=== PATIENT | male | born 1980 | race Two or more races ===

== ENCOUNTER 2019-12-02 20:09 | Emergency (ER) | payer OTHER ==
[~2019-12-02] VITALS: Ht 175.3 cm; Wt 53.5 kg
--- NOTE | 2019-12-02 20:40 | NUR ---
PT BIBSELF C/O SI TO JUMP IN FRONT OF A BUS. -HI. PT STATED "I WENT TO [facility] AND THEY STATED TO COME TO [facility] TO BE CLEARED. PT PLACED IN GOWN, ON MONITOR, AND PULSE OX. VSS. DENIES PAIN. RR EVEN AND UNLABORED, NO SKIN ISSUES NOTED. AWAITING MD FOR EVAL AND ORDERS.
--- NOTE | 2019-12-02 20:49 | NUR ---
PT PROVIDED URINE SAMPLE.
--- NOTE | 2019-12-02 20:50 | NUR ---
ELECTRONIC GAMING DEVICE SUPERVISOR AT BEDSIDE FOR LAB DRAW.
--- NOTE | 2019-12-02 20:51 | NUR ---
SECURITY AT BEDSIDE FOR WANDING.
[2019-12-02 21:01] LABS: BASOPHILS # (AUTO) 0.1 /CMM (0.0-0.2); EOSINOPHILS % (AUTO) 2.8 % (0.0-6.0); HEMATOCRIT 29 % (39-51); HEMOGLOBIN 8.8 g/dL (13.5-17.5); LYMPHOCYTES # (AUTO) 2.1 /CMM (0.8-4.8); LYMPHOCYTES % (AUTO) 25.2 % (20.0-44.0); MEAN CORPUSCULAR HGB CONC 30 g/dl (31.0-36.0); MEAN CORPUSCULAR VOLUME 69 fL (80-96); MONOCYTES # (AUTO) 0.6 /CMM (0.1-1.30); MONOCYTES % (AUTO) 7.3 % (2.0-12.0); NEUTROPHILS # (AUTO) 5.4 /CMM (1.8-8.9); NEUTROPHILS % (AUTO) 63.7 % (43.0-81.0); PLATELET COUNT (AUTO) 579 /CMM (150-450); RED BLOOD CELL COUNT(AUTO) 4.19 MIL/uL (4.5-6.0); WHITE BLOOD COUNT (AUTO) 8.5 K/uL (4.3-11.0)
[2019-12-02 21:09] LABS: CALCIUM, SERUM 8.5 mg/dL (8.5-10.1); CARBON DIOXIDE 27 mmol/L (21-32); CHLORIDE 104 mmol/L (98-107); CREATININE 0.8 mg/dL (0.6-1.3); GLUCOSE 83 mg/dL (74-106); POTASSIUM 3.7 mmol/L (3.5-5.1); SODIUM SERUM 137 mmol/L (136-145); UREA NITROGEN, BLOOD 23 mg/dL (7-18)
[2019-12-02 21:11] LABS: APPEARANCE,URINE Clear (CLEAR); BILIRUBIN,URINE Negative (NEGATIVE); BLOOD, URINE Negative Ery/uL (NEGATIVE); COLOR,URINE Yellow (YELLOW); KETONES,URINE Negative (NEGATIVE); LEUKOCYTE ESTERASE ,URINE Negative (NEGATIVE); NITRITE, URINE Negative (NEGATIVE); PROTEIN,URINE Negative (NEGATIVE); UGLUCOSE Negative (NEGATIVE); UROBILINOGEN,URINE 0.2 EU/dL (0.2)
[2019-12-02 21:15] LABS: ALANINE AMINOTRANSFERASE 30 U/L (12-78); ALBUMIN 3.5 g/dL (3.4-5.0); ALCOHOL, BLOOD < 3 mg/dL (0-0); ALKALINE PHOSPHATASE 69 U/L (46-116); ASPARTATE AMINOTRANSFERASE 20 U/L (15-37); BILIRUBIN,DIRECT 0.1 mg/dL (0.0-0.2); BILIRUBIN,TOTAL 0.2 mg/dL (0.2-1.0); TOTAL PROTEIN, SERUM 7.2 g/dL (6.4-8.2)
[2019-12-02 21:16] LABS: ACETAMINOPHEN 0 ug/ml (10-30); SALICYLATE 0.8 mg/dL (2.8-20.0)
--- NOTE | 2019-12-02 21:55 | NUR ---
CLINICAL INFORMATION FAXED TO [facility]
--- NOTE | 2019-12-02 21:56 | NUR ---
Patient is resting comfortably in bed. Easily aroused. VSS.
--- NOTE | 2019-12-02 22:25 | NUR ---
PATIENT IS AWAKE. PATIENT APPEARS CALM. FLAT AFFECT. DOES NOT APPEAR TO BE IN ANY DISTRESS. CONNECTED TO THE MONITOR. BREATHING EVENLY AND UNLABORED ON ROOM AIR. SITTER AT BEDSIDE.
--- NOTE | 2019-12-03 00:53 | NUR ---
PT AMBULATED TO RESTROOM. VSS. SITTER AT BEDSIDE.
--- NOTE | 2019-12-03 04:47 | NUR ---
PT RESTING COMFORTABLY IN BED. VITAL SIGNS STABLE. NO ACUTE DISTRESS NOTED AT THIS TIME. SITTER STILL AT BEDSIDE, WILL CONTINUE TO MONITOR
--- NOTE | 2019-12-03 05:27 | NUR ---
PT SLEEP. VSS. SITTER AT BEDSIDE.
--- NOTE | 2019-12-03 06:13 | NUR ---
PT AWAKE, IN BED.
--- NOTE | 2019-12-03 06:53 | NUR ---
SPOKE WITH ANGUS FROM [facility], UNABLE TO ACCEPT PT DUE TO RECENT DISCHARGE FROM [facility]
--- NOTE | 2019-12-03 07:05 | NUR ---
assume pt care, resting in bed. verbally responsive. stable vitals. continue to be suicidal up to now. cooperative to staff. sitter at bedside. provided w/ breakfast tray. will continue to monitor.
--- NOTE | 2019-12-03 08:42 | NUR ---
DISEASE MANAGEMENT NURSE contacted Maurilio at [facility] to f/u regarding bed availability. Per Maurilio, they will have discharges at noon and will be able to accept pt after 12PM. DISEASE MANAGEMENT NURSE updated ED CRN Gener with aforementioned information.
--- NOTE | 2019-12-03 12:30 | NUR ---
PT ACCEPTED TO [facility], ACCEPTING MD IS DR. ZAYAS NUMBER FOR REPORT IS [phone]
--- NOTE | 2019-12-03 12:55 | NUR ---
CALLED [facility]. [facility] ETA 45 MINUTES. RESERVATION NUMBER [phone]
[2019-12-03 13:26] VITALS: BP 126/74
--- NOTE | 2019-12-03 13:28 | NUR ---
pt transfered to [facility]. pt transported in stable condition.
== END 2019-12-03 13:40 ==
LOC: ER 20:10
DX: R45.851 Suicidal ideations (principal); D53.9 Nutritional anemia, unspecified; F15.10 Other stimulant abuse, uncomplicated; F25.9 Schizoaffective disorder, unspecified; F32.9 Major depressive disorder, single episode, unspecified; Z86.19 Personal history of other infectious and parasitic diseases
CPT/HCPCS: 36415; 80048; 80076; 80305; 80307; 80329; 81001; 85025; 99285; G0480; 81000-TC

== ENCOUNTER 2020-01-05 00:11 | Emergency (ER) | payer OTHER ==
[~2020-01-05] VITALS: Ht 175.3 cm; Wt 54.4 kg
--- NOTE | 2020-01-05 00:15 | NUR ---
TO ER BED 14 AMBULATORY C/O SI WITH PLAN TO OD ON MEDS. DENIES HI. "I DONT WANT TO LIVE ANYMORE". PT CALM AND COOPERATIVE AT THIS TIME. PT AAOX4 BRISEYDA CUTE DISTRESS NOTED, RESP EVEN AND UNLABORED. PLACE PT ON HOSPITAL GOWN, ALL BELONGINGS REMOVED FROM ROOM. 1:1 SITTER AT BEDSIDE FOR TP SAFETY. WILL CONINUE TO MONITOR PT CLOSELY.
--- NOTE | 2020-01-05 00:30 | NUR ---
URINE COLLECTED. SENT TO LAB
[2020-01-05 00:46] LABS: BASOPHILS # (AUTO) 0.1 /CMM (0.0-0.2); BASOPHILS % (AUTO) 1.3 % (0.0-2.0); HEMATOCRIT 29 % (39-51); HEMOGLOBIN 8.9 g/dL (13.5-17.5); LYMPHOCYTES # (AUTO) 2.2 /CMM (0.8-4.8); MEAN CORPUSCULAR HGB CONC 31 g/dl (31.0-36.0); MEAN CORPUSCULAR VOLUME 71 fL (80-96); MONOCYTES # (AUTO) 0.8 /CMM (0.1-1.30); MONOCYTES % (AUTO) 11.7 % (2.0-12.0); NEUTROPHILS # (AUTO) 3.6 /CMM (1.8-8.9); PLATELET COUNT (AUTO) 602 /CMM (150-450)
[2020-01-05 00:49] LABS: APPEARANCE,URINE Clear (CLEAR); BILIRUBIN,URINE Negative (NEGATIVE); BLOOD, URINE Negative Ery/uL (NEGATIVE); COLOR,URINE Yellow (YELLOW); KETONES,URINE Negative (NEGATIVE); LEUKOCYTE ESTERASE ,URINE Negative (NEGATIVE); NITRITE, URINE Negative (NEGATIVE); PH,URINE 5.5 (5.0-8.0); PROTEIN,URINE 30 mg/dl (NEGATIVE); UGLUCOSE Negative (NEGATIVE); UROBILINOGEN,URINE 0.2 EU/dL (0.2)
[2020-01-05 00:55] LABS: BACTERIA,URINE None seen /HPF (None Seen); MUCUS,URINE Moderate /LPF (None Seen); RBC,URINE 0-2 /HPF (0-2); SQUAMOUS EPITHELIAL CELL,UR Rare /HPF (None Seen); WBC,URINE 0-2 /HPF (0-3)
[2020-01-05 01:06] LABS: CALCIUM, SERUM 9.3 mg/dL (8.5-10.1); CARBON DIOXIDE 30 mmol/L (21-32); CHLORIDE 101 mmol/L (98-107); CREATININE 0.7 mg/dL (0.6-1.3); GLUCOSE 91 mg/dL (74-106); POTASSIUM 3.7 mmol/L (3.5-5.1); SODIUM SERUM 136 mmol/L (136-145); UREA NITROGEN, BLOOD 32 mg/dL (7-18)
[2020-01-05 01:12] LABS: ALANINE AMINOTRANSFERASE 39 U/L (12-78); ALBUMIN 3.9 g/dL (3.4-5.0); ALKALINE PHOSPHATASE 71 U/L (46-116); ASPARTATE AMINOTRANSFERASE 29 U/L (15-37); BILIRUBIN,DIRECT 0.1 mg/dL (0.0-0.2); BILIRUBIN,TOTAL 0.3 mg/dL (0.2-1.0); TOTAL PROTEIN, SERUM 7.9 g/dL (6.4-8.2)
[2020-01-05 01:42] LABS: SALICYLATE 0.3 mg/dL (2.8-20.0)
[2020-01-05 01:43] LABS: ACETAMINOPHEN 0 ug/ml (10-30); ALCOHOL, BLOOD < 3 mg/dL (0-0)
--- NOTE | 2020-01-05 02:56 | NUR ---
Pt accepted to [facility] by Dr Boyle. Unit 2. # for report [phone]
--- NOTE | 2020-01-05 03:07 | NUR ---
[facility] called for transport. ETA 60-90 minutes.
--- NOTE | 2020-01-05 03:55 | NUR ---
Report given to [facility] Wagner for continuation of care
--- NOTE | 2020-01-05 05:42 | NUR ---
[facility] at bedside for transport.
[2020-01-05 05:43] VITALS: BP 125/79
== END 2020-01-05 05:44 | disposition home or self-care (01) ==
LOC: ER 00:11
DX: R45.851 Suicidal ideations (principal); F19.10 Other psychoactive substance abuse, uncomplicated; F20.9 Schizophrenia, unspecified; D64.9 Anemia, unspecified; F17.200 Nicotine dependence, unspecified, uncomplicated; Z88.8 Allergy status to other drugs, medicaments and biological substances; Z86.19 Personal history of other infectious and parasitic diseases
CPT/HCPCS: 36415; 80048; 80076; 80305; 80307; 80329; 81001; 85025; 99283; G0480; 81000-TC

== ENCOUNTER 2020-01-16 06:34 | Emergency (ER) | payer OTHER ==
[~2020-01-16] VITALS: Ht 175.3 cm; Wt 53.5 kg
[2020-01-16 07:07] LABS: BASOPHILS # (AUTO) 0.1 /CMM (0.0-0.2); BASOPHILS % (AUTO) 1.2 % (0.0-2.0); EOSINOPHILS % (AUTO) 1.9 % (0.0-6.0); HEMATOCRIT 30 % (39-51); LYMPHOCYTES # (AUTO) 1.4 /CMM (0.8-4.8); LYMPHOCYTES % (AUTO) 23.3 % (20.0-44.0); MEAN CORPUSCULAR HGB CONC 31 g/dl (31.0-36.0); MEAN CORPUSCULAR VOLUME 69 fL (80-96); MONOCYTES # (AUTO) 0.7 /CMM (0.1-1.30); NEUTROPHILS # (AUTO) 3.6 /CMM (1.8-8.9); NEUTROPHILS % (AUTO) 61.6 % (43.0-81.0); PLATELET COUNT (AUTO) 621 /CMM (150-450); WHITE BLOOD COUNT (AUTO) 5.9 K/uL (4.3-11.0)
--- NOTE | 2020-01-16 07:20 | NUR ---
assume patient care, resting in bed. here for suicidal ideation w/ plan to jump in front of a moving train. pt denies hi. pt is cooperative to staff. admits to using meth and marijuana. belongings to safe locker. urine and blood samples collected and sent. sitter at bedside. will continue to monitor.
[2020-01-16] MEDS ORDERED: QUETIAPINE FUMARATE 25 MG TABLET PO STA (07:21)
[2020-01-16 07:26] LABS: POTASSIUM 4.2 mmol/L (3.5-5.1)
[2020-01-16 07:27] LABS: CALCIUM, SERUM 8.8 mg/dL (8.5-10.1)
[2020-01-16 07:28] LABS: ALBUMIN 3.9 g/dL (3.4-5.0)
[2020-01-16 07:34] LABS: CREATININE 0.7 mg/dL (0.6-1.3)
[2020-01-16] MEDS ORDERED: QUETIAPINE FUMARATE 25 MG TABLET ONE (07:34)
[2020-01-16 07:35] LABS: BILIRUBIN,DIRECT 0.1 mg/dL (0.0-0.2); BILIRUBIN,TOTAL 0.4 mg/dL (0.2-1.0)
[2020-01-16 07:37] LABS: SALICYLATE 0.6 mg/dL (2.8-20.0)
--- NOTE | 2020-01-16 08:45 | NUR ---
Social service consult requested by for voluntary psychiatric hospitalization. Per MD Notes, pt is a 39-year-old male with a past medical history of hep C, chronic anemia, schizophrenia with persistent suicidal ideations, presenting to the emergency department today for worsening suicidal ideations with a plan to jump in front of a moving train. He reports auditory hallucinations telling him that he is worthless, and he indicates that he cannot take it anymore and he no longer wants to live. The patient reports that he is supposed to be on Seroquel, but he is noncompliant with this medication. He does not endorse any homicidal ideations. He does not want to hurt anyone but himself. He does not endorse any visual hallucinations. The patient does admit to chronic frequent methamphetamine and marijuana abuse. He last used methamphetamine 2 days ago. He indicates that it did not change his suicidality. JESSE contacted Maurilio at [facility] and initiated voluntary psychiatric hospitalization. Per Maurilio, they will hold a bed for the pt. JESSE faxed clinicals to [facility] intake dept. ED CRN Gener notified.
--- NOTE | 2020-01-16 10:05 | NUR ---
SW followed up with [facility] intake regarding update on pt. being accepted. Per Dariel at [facility] intake, pt is being referred to [facility] and clinicals are currently being reviewed by warehouse foreman at [facility]. [facility] intake to updated SW once pt is accepted.
--- NOTE | 2020-01-16 11:14 | NUR ---
SW received a call from Carisa at [facility] intake stating, pt has been accepted to [facility]. Room number 214/A. Call report to charge weigher Chris at .
--- NOTE | 2020-01-16 11:20 | NUR ---
report given to javier DANIELLE for nahid
--- NOTE | 2020-01-16 11:54 | NUR ---
awaiting call back from call the car for ambulance eta. confirmation #[id number]
--- NOTE | 2020-01-16 12:01 | NUR ---
AMBUL[facility] ETA 1330.
[2020-01-16 13:00] VITALS: BP 129/81
== END 2020-01-16 13:01 ==
LOC: ER 06:34
DX: R45.851 Suicidal ideations (principal); F32.9 Major depressive disorder, single episode, unspecified; F23 Brief psychotic disorder; F15.10 Other stimulant abuse, uncomplicated; F12.10 Cannabis abuse, uncomplicated; D64.9 Anemia, unspecified; Z86.19 Personal history of other infectious and parasitic diseases; Z88.8 Allergy status to other drugs, medicaments and biological substances
CPT/HCPCS: 36415; 80048; 80076; 80305; 80307; 80329; 85025; 99285; G0480

== ENCOUNTER 2020-02-13 15:27 | Inpatient (IN) | payer OTHER ==
[~2020-02-13] VITALS: Ht 175.3 cm; Wt 81.6 kg
--- NOTE | 2020-02-13 15:36 | NUR ---
DR VALLE AT BEDSIDE FOR EVAL.
--- NOTE | 2020-02-13 15:40 | NUR ---
Called poison control: Orders: respiratory supervisor Charcoal CMP EKG Q 2 hours x 3 Neuro check as needed OBS x 6 hours psych work up Automatic Nailing Machine Feeder 137 (Poison Control - [place])
--- NOTE | 2020-02-13 15:42 | NUR ---
LINE STARTED ON R AC G 18, BLOOD DRAWN FROM LINE AND SENT TO LAB
[2020-02-13] MEDS ORDERED: ACTIVATED CHARCOAL 25 GM/120 ML TUBE ONE (15:46)
[2020-02-13 15:55] LABS: APPEARANCE,URINE CLEAR (CLEAR); BASOPHILS # (AUTO) 0.1 /CMM (0.0-0.2); BASOPHILS % (AUTO) 1.5 % (0.0-2.0); BILIRUBIN,URINE NEGATIVE (NEGATIVE); BLOOD, URINE NEGATIVE Ery/uL (NEGATIVE); COLOR,URINE YELLOW (YELLOW); EOSINOPHILS % (AUTO) 2.8 % (0.0-6.0); HEMATOCRIT 35 % (39-51); HEMOGLOBIN 10.8 g/dL (13.5-17.5); KETONES,URINE NEGATIVE (NEGATIVE); LEUKOCYTE ESTERASE ,URINE NEGATIVE (NEGATIVE); LYMPHOCYTES # (AUTO) 2.2 /CMM (0.8-4.8); LYMPHOCYTES % (AUTO) 42.2 % (20.0-44.0); MEAN CORPUSCULAR HGB CONC 31 g/dl (31.0-36.0); MEAN CORPUSCULAR VOLUME 70 fL (80-96); MONOCYTES # (AUTO) 0.5 /CMM (0.1-1.30); MONOCYTES % (AUTO) 9.6 % (2.0-12.0); NEUTROPHILS # (AUTO) 2.3 /CMM (1.8-8.9); NEUTROPHILS % (AUTO) 43.9 % (43.0-81.0); NITRITE, URINE NEGATIVE (NEGATIVE); PLATELET COUNT (AUTO) 551 /CMM (150-450); PROTEIN,URINE NEGATIVE (NEGATIVE); RED BLOOD CELL COUNT(AUTO) 4.98 MIL/uL (4.5-6.0); UGLUCOSE NEGATIVE (NEGATIVE); UROBILINOGEN,URINE 0.2 EU/dL (0.2); WHITE BLOOD COUNT (AUTO) 5.3 K/uL (4.3-11.0)
[2020-02-13] MEDS ORDERED: IV NS 0.9% 1,000 ML BAG IV ONE (16:00)
[2020-02-13] MEDS ORDERED: BUPR75TA8 PO (16:00)
[2020-02-13] MEDS ORDERED: ACTIVATED CHARCOAL 25 GM/120 ML TUBE PO ONE (16:00)
[2020-02-13] MEDS ORDERED: ESCI10TA PO (16:00)
[2020-02-13] MEDS ORDERED: QUET50TA PO (16:00)
[2020-02-13 16:03] LABS: EOSINOPHILS % (MANUAL) 2 % (0-4); LYMPHOCYTES % (MANUAL) 38 % (16-48); MONOCYTES % (MANUAL) 10 % (0-11.0); NEUTROPHILS % (MANUAL) 50 (42-76)
[2020-02-13 16:05] LABS: CALCIUM, SERUM 8.5 mg/dL (8.5-10.1); CARBON DIOXIDE 27 mmol/L (21-32); CHLORIDE 102 mmol/L (98-107); CREATININE 0.9 mg/dL (0.6-1.3); GLUCOSE 83 mg/dL (74-106); POTASSIUM 4.1 mmol/L (3.5-5.1); SODIUM SERUM 135 mmol/L (136-145); UREA NITROGEN, BLOOD 29 mg/dL (7-18)
[2020-02-13 16:14] LABS: ALANINE AMINOTRANSFERASE 41 U/L (12-78); ALBUMIN 3.6 g/dL (3.4-5.0); ALCOHOL, BLOOD < 3 mg/dL (0-0); ALKALINE PHOSPHATASE 70 U/L (46-116); ASPARTATE AMINOTRANSFERASE 32 U/L (15-37); BILIRUBIN,DIRECT 0.1 mg/dL (0.0-0.2); BILIRUBIN,TOTAL 0.3 mg/dL (0.2-1.0); TOTAL PROTEIN, SERUM 7.4 g/dL (6.4-8.2)
[2020-02-13 16:16] LABS: SALICYLATE < 2.8 mg/dL (2.8-20.0)
--- NOTE | 2020-02-13 16:23 | NUR ---
PT SLEEPING, EASILY AROUSABLE VERBALLY RESPONSIVE AWAKE. WILL MONITOR CLOSELY.
[2020-02-13] MEDS: IV NS 0.9% 500 ML BAG IV ONE ×2 (17:15→17:30)
--- NOTE | 2020-02-13 17:15 | NUR ---
DR VALLE MADE AWARE OF CURRENT B/P VERBALL ORDER FOR 1L NS ORDERED AND CARRIED OUT
[2020-02-13] MEDS ORDERED: ACETAMINOPHEN 325 MG TABLET PO PRN (18:30)
[2020-02-13] MEDS ORDERED: MAG HYDROX/AL HYDROX/SIMETH 30 ML UDC PO PRN (18:30)
[2020-02-13] MEDS ORDERED: ONDANSETRON HCL/PF 4 MG/2 ML VIAL IVP PRN (18:30)
[2020-02-13] MEDS ORDERED: Z GUARD REMEDY 2 OZ OINT TP PRN (18:30)
[2020-02-13] MEDS ORDERED: MAGNESIUM HYDROXIDE 30 ML UDC PO PRN (18:30)
--- NOTE | 2020-02-13 20:33 | NUR ---
TOLD PT HE NEEDED AN EXTRA IV LINE. PT STATED "NO, GET AWAY FROM ME.
--- NOTE | 2020-02-13 20:45 | NUR ---
HAND TIER NOTES ADMITTED A 39 Y/O MALE A/OX4 ABLE TO MAKE NEEDS KNOWN ,WITH ADMITTING DX OF DRUG OVERDOSE .ADMISSION ROUTINE CARE RENDERED , V/S BP 107/62 HR 80 RR 12 TEMP 98.5 02 SAT 99% ON R/A O SOB NO DISTRESS NOTED .ALL NEEDS ATTENDED TOO CALL LIGHT WITHIN REACH .PT ON RIGHT AC g 18 INTACT AND PATENT ON IVF OG NS AT 75CC/HR INFUSING WELL , BODY CHECK NOT DONE AT THIS TIME D/T PTS REFUSAL , WILL CONTINUE TO MONITOR PTS.
--- NOTE | 2020-02-13 20:53 | NUR ---
PT STATED HE HAS BELONINGS IN THE E.D. I ASKED THE MORNING SHIFT IF THE PT CAME IN WITH ANY CLOTHES WHICH THEY STATED NO. EXCEPT WHATEVER THE PATIENT WAS WEARING WHICH IS BLUE JEANS AND GREEN SHOES. WHILE TRANSFERING PT, PT TOOK OFF BP CUFF AND THREW IT AT ME AND STATED "YOU HAVE MY SHIRTS." I ASKED THE PT HOW HIS SHIRTS LOOKED LIKE AND HE DID NOT KNOW. ICU AWARE.
--- NOTE | 2020-02-13 20:54 | NUR ---
PT TRANSFERED PER ACLS PROTOCOL
[2020-02-13] MEDS: IV NS 0.9% 1,000 ML IV PRN (21:21)
[2020-02-13 21:23] VITALS: BP 107/62
[2020-02-13 21:25] VITALS: BP 107/62
[2020-02-13 22:00] VITALS: BP 105/60
--- NOTE | 2020-02-13 22:00 | NUR ---
ARTIFICIAL BREEDING TECHNICIAN NOTES PTS NOTED WITH PERIOD OF AGITATION , PT'S OFFER SANDWICH AND JELLY ,PT CALM DOWN AFTER EATING , SLEEPING AT THIS TIME .PT USE URINALS FOR HIS URINE. PTS NEGATIVE TO DONNELL 19
[2020-02-13 23:00] VITALS: BP 108/62
--- NOTE | 2020-02-13 23:48 | NUR ---
vulcanized fiber unit operator NOTES PT SLEEPING EASILY AROUSE ,NO SOB NO DISTRESS NOTED.
[2020-02-14] VITALS (8 sets, daily range): BP systolic 94–158; BP diastolic 53–94
--- NOTE | 2020-02-14 03:10 | NUR ---
pTS TOOK OUT MONITOR REFUSES TO PUT BACK , EXPLAIN R/B PT NON COMPLIANCE AGGRESIVE AT TIMES WANTS MD RECINOS MADE AWARE. WILL CONTINUE TO MONITOR PTS.,CHARGE MADE AWARE TO PTS ON 1;1 SITTER .TO DONATION SPECIALIST AT 6AM. PTS ASK FOR JELLO AND SANDWICH GIVEN AND TOLERATED WELL.NO SOB NO DISDTREDD NOTED.
--- NOTE | 2020-02-14 04:00 | NUR ---
STEAM AND POWER SUPERVISOR NOTES VITAL SIGN NOT TAKEN D/T PTS REFUSAL WILL CONTINUE TO MONITOR
[2020-02-14 04:11] LABS: BASOPHILS % (AUTO) 1.2 % (0.0-2.0); EOSINOPHILS % (AUTO) 4.2 % (0.0-6.0); HEMATOCRIT 34 % (39-51); HEMOGLOBIN 10.4 g/dL (13.5-17.5); LYMPHOCYTES % (AUTO) 48.4 % (20.0-44.0); MEAN CORPUSCULAR HGB CONC 30 g/dl (31.0-36.0); MEAN CORPUSCULAR VOLUME 71 fL (80-96); MONOCYTES # (AUTO) 0.4 /CMM (0.1-1.30); MONOCYTES % (AUTO) 10.4 % (2.0-12.0); NEUTROPHILS # (AUTO) 1.5 /CMM (1.8-8.9); NEUTROPHILS % (AUTO) 35.8 % (43.0-81.0); PLATELET COUNT (AUTO) 439 /CMM (150-450); RED BLOOD CELL COUNT(AUTO) 4.82 MIL/uL (4.5-6.0); WHITE BLOOD COUNT (AUTO) 4.1 K/uL (4.3-11.0)
--- NOTE | 2020-02-14 05:00 | NUR ---
SPECTROGRAPHIC ANALYST NOTES VITAL SIGN NOT TAKEN D/T PTS REFUSAL WILL CONTINUE TO MONITOR
[2020-02-14 05:08] LABS: BILIRUBIN,TOTAL 0.1 mg/dL (0.2-1.0); CREATININE 0.8 mg/dL (0.6-1.3); MAGNESIUM 2.4 mg/dL (1.8-2.4); PHOSPHORUS 3.4 mg/dL (2.5-4.9); POTASSIUM 3.8 mmol/L (3.5-5.1); TOTAL PROTEIN, SERUM 6.3 g/dL (6.4-8.2)
--- NOTE | 2020-02-14 06:00 | NUR ---
LAMINATOR PRINTED CIRCUIT BOARDS NOTES VITAL SIGN NOT TAKEN D/T PTS REFUSAL WILL CONTINUE TO MONITOR
--- NOTE | 2020-02-14 06:49 | NUR ---
PEGA DEVELOPER NOTES PT IN BED STILL SLEEPING ,PT NOT CONNECTED TO MONITOR D/T PT REFUSAL , PT IS COMBATIVE AGGRESSIVE AND MANIPULATIVE STILL REFUSING TO HAVE BODY CHECK WILL INDORSE TO RN DAY SHIFT FOR CONTINUITY OF CARE.
--- NOTE | 2020-02-14 07:15 | NUR ---
CHAINER NOTES RECEIVED PATIENT AOX3 NOT IN ACUTE DISTRESS , DENIES SOB AND DISCOMFORT AT THIS TIME , PATIENT STILL HAVE SUICIDAL / HOMICIDAL IDEATION , SAFETY MEASURES OBSERVED , 1:1 SITTER AT BEDSIDE , PT REFUSING BODY CHECKS AND TO BE ATTACHED TO MONITORS , IV OF R AC # 18 WITH NS@ 75ML/HR INFUSING WELL , ALL NEEDS ATTENDED ,WILL CONTINUE TO MONITOR .
--- NOTE | 2020-02-14 07:51 | NUR ---
GUN SEALING MACHINE OPERATOR NOTES PT ABLE TO FINISH 2 TRAYS OF BREAKFAST , PT STILL AGGRESSIVE , AGITATED AND VERBALLY ABUSIVE , PT STILL REFUSED TO BE PLACE ON MONITOR AND CHECK HIS VITAL SIGNS , EXPLAINED THE BENEFITS OF IT PT VERBALIZED UNDERSTANDING STILL REFUSED , PT STILL HAVE HOMICIDAL AND SUICIDAL IDEATIONS NO PLAN OF VERBALIZATIONS OF HOW HE WANTS TO COMMIT SUICIDE , NO VISUAL OR AUDITORY HALLUCINATIONS AT THIS TIME , PT RESTING ON BED SLEEPING AT THIS TIME , WILL CONTINUE TO MONITOR , 1:1 SITTER AT BEDSIDE , SAFETY MEASURES OBSERVED ,
--- NOTE | 2020-02-14 08:40 | NUR ---
pt is awake and follow commands refused EKG @ this time. RN notified. Addendum: 02/14/20 at 0841 by SMILEY WAKEFIELD RT Amended: Links added.
--- NOTE | 2020-02-14 09:17 | NUR ---
DESK REPRESENTATIVE NOTES SEEN AND EVALUATED BY DR ALFARO , DISCUSSED PT IS AOX3 , COMPLAINS OF MILD DROWSINESS , ABLE TO EAT X2 BREAKFAST WITHOUT ANY PROBLEMS , REFUSING VITAL SIGNS PER UNIT PROTOCOL , REFUSED EKG , UNABLE TO ASSESS GAIT PT IS RESTING IN BED , STILL VERBALIZING SUICIDAL AND HOMICIDAL IDEATION BUT NOT VERBALIZING PLANS AT THIS TIME , 1;1 SITTER AT BEDSIDE , AWARE
--- NOTE | 2020-02-14 09:29 | NUR ---
TREATMENT PLANT OPERATOR NOTES ASSESSED PT SUICIDAL AND HOMICIDAL IDEATIONS , PER PATIENT HE IS STILL HEARING VOICES TELLING HIM TO HURT HIM SELF , ASKED PT IF HE IS INTENDED TO HURT SOMEONE , PER PT HE JUST INTENDED TO HURT HIM SELF , PT RESTING ON BED AT THIS TIME , COMFORTABLE AND COOPERATING , CALLED [facility] TO VERIFY IF FACE SHEET IS FAXED FOR PSYCH CONSULT , PER TWAN SHE HAS IT AND SHE WILL MAKE SURE MD WILL ASSESS THE PT
--- NOTE | 2020-02-14 09:57 | NUR ---
SWIMMING POOL SERVICE TECHNICIAN NOTES SPOKR WITH CLINICIAN , DISCUSSED PT CHIEF COMPLAINT AND DIAGNOSIS , DISCUSSED MEDICATIONS THAT HE OVERDOSE , PT AOX3 , PT HAVING AUDITORY HALLUCINATIONS , PER PT THE VOICES ARE VERBALIZING HIM HURT HIM SELF , NOT INTENDED TO HURT OTHERS , CLINICIAN AWARE , SHE WILL BE HERE IN AN HOUR .
[2020-02-14] MEDS: IV NS 0.9% 1,000 ML IV PRN (10:50)
--- NOTE | 2020-02-14 11:45 | NUR ---
PERFORMANCE MANAGER NOTES REPORT GIVEN TO SHOAIB DANIELLE FOR CONTINUITY OF CARE , ALL QUESTIONS ANSWERED . ANDREINA AT BEDSIDE FOR CRISIS EVAL .
--- NOTE | 2020-02-14 12:00 | NUR ---
pt. just transferred here from icu.skin warm and dry.has 1:1 sitter.pt. refusing tele at this time.sitter states pt. just had lunch.not talking at this time,side rails up.no complaints offered.vs just taken.t 98.3,heart rate 84,iu16efc 98%bp 101/53.
--- NOTE | 2020-02-14 12:36 | NUR ---
CORRECTIONAL OFFICER CAPTAIN NOTES PT TRANSFERRED TO TELE FLOOR FOR CONTINUITY OF CARE , PT STABLE AT THIS TIME , VSS , PT REFUSED TO BE PLACED TO TELE MONITOR , IVF STARTED AT ORDERED RATE , 1:1 SITTER AT BEDSIDE , UPDATES GIVEN TO SHOAIB FOR CONTINUITY OF CARE
[2020-02-14] MEDS ORDERED: LORAZEPAM 1 MG TABLET PO PRN (13:30)
--- NOTE | 2020-02-14 15:00 | NUR ---
DR. DE LEÓN IN TO SEE PT. NO HOLD ORDERED.
--- NOTE | 2020-02-14 16:51 | NUR ---
PT. WAS SLEEPING,SITTER AT BEDSIDE,SUDDENLY AWAKENED AND YELLING OUT LOUD THAT HE NEEDED TO GO TO THE BATHRM.WITH URGENCY IN HIS VOICE.AMB.WELL TO BATHRM.SITTER IN .
--- NOTE | 2020-02-14 16:53 | NUR ---
VITAL SIGNS STABLE.
--- NOTE | 2020-02-14 19:30 | NUR ---
DOCTOR CHIROPRACTIC OPENING NOTES RECEIVED PATIENT IN BED. A/OX4. TOLERATING ROOM AIR. RESPIRATIONS ARE EVEN AND UNLABORED. NO S/S SOB NOTED. NO C/O PAIN AT THIS TIME. EXTERNAL TELE MONITOR READS SINUS RHYTHM HR 87. IN NO APPARENT DISTRESS. STATES HE IS STILL FEELING SUICIDAL BUT HAS NO PLAN. PATIENT DENIES AUDITORY AND VISUAL HALLUCINATIONS. SITTER AT BED SIDE. IV ACCESS IN RAC#18 RUUNNING NS@75ML/HR. BED IS LOW AND LOCKED, HOB ELEVATED IN SEMI FOWLERS, SIDE RIALS UP X2. CALL LIGHT WITHIN REACH. WILL CONTINUE TO MONITOR.
[2020-02-14] MEDS ORDERED: QUETIAPINE FUMARATE 100 MG TABLET PO SCH (22:00)
--- NOTE | 2020-02-14 23:15 | NUR ---
RT NOTE PT REFUSED EKG AT THIS TIME. RN ARUN AWARE. PT ASLEEP, NO DISTRESS NOTED.
--- NOTE | 2020-02-15 | NUR ---
STRIKE WARFARE/MISSILE SYSTEMS OFFICER NOTE PATIENT IS REFUSING VITAL SIGNS TO BE TAKEN PROTOCOL FOR TELE PATIENTS. PATIENT WANTS TO SLEEP, WILL TRY TO REASSESS AT 0400 VITAL SIGN CHECK. WILL CONTINUE TO MONITOR.
--- NOTE | 2020-02-15 02:31 | NUR ---
RT NOTE PT REFUSED EKG AT THIS TIME. SHASHI ALLEN.
[2020-02-15] MEDS: IV NS 0.9% 1,000 ML IV PRN (03:53)
--- NOTE | 2020-02-15 04:00 | NUR ---
LEARNING SUPPORT SPECIALIST NOTE PATIENT REFUSED 0400 VITALS.
--- NOTE | 2020-02-15 05:54 | NUR ---
RT NOTE PT REFUSED EKG. RN ARUN ALLEN.
--- NOTE | 2020-02-15 07:03 | NUR ---
PESTICIDE USE MEDICAL COORDINATOR CLOSING NOTES PATIENT IN BED. A/OX4. REMAINS TOLERATING ROOM AIR. RESPIRATIONS ARE EVEN AND UNLABORED. NO RESP DISTRESS. NO C/O PAIN T/O SHIFT. EXTERNAL TELE MONITOR READS SINUS RHYTHM. NO DISTRESS NOTED. STATES STILL FEELING SUICIDAL BUT HAS NO PLAN, NOT VERY VERBAL, DOESNT WANT TO GIVE EXPLANATIONS. PATIENT DENIES AUDITORY AND VISUAL HALLUCINATIONS. SITTER REMAINS AT BED SIDE. IV ACCESS MAINTAINED IN RAC#18 RUUNNING NS@75ML/HR. BED REMAINS LOW AND LOCKED, HOB ELEVATED IN SEMI FOWLERS, SIDE RIALS UP X2. CALL LIGHT WITHIN REACH. WILL ENDORSE TO NEXT SHIFT.
[2020-02-15] MEDS ORDERED: ESCITALOPRAM OXALATE (10 MG) 10 MG TABLET PO SCH (09:00)
--- NOTE | 2020-02-15 09:35 | NUR ---
TELE/RN NOTES PATIENT REFUSED LEXAPRO 10 MG 1 TAB P.O. AND PUTTING ON TELE MONITOR BOX MD IS AWARE. EXPLAINED THE RISK AND BENEFITS PATIENT VERBALIZED " I DON'T WANT TO TAKE THE MEDICINE" I DON'T NEED TO PUT THE MONITOR". WILL CONTINUE TO MONITOR.
--- NOTE | 2020-02-15 10:32 | NUR ---
TEL/RN NOTES PATIENT REFUSED FOR EKG, EXPLAINED THE RISK AND BENEFITS, PATIENT VERBALIZED " HE DOESN'T NEED IT". MD IS AWARE. WILL CONTINUE TO MONITOR.
--- NOTE | 2020-02-15 11:54 | NUR ---
RT NOTE PT REFUSED EKG. SHASHI DONOHUE NOTIFIED. NO DISTRESS NOTED Addendum: 02/15/20 at 1154 by ELIANA FLYNN RT Amended: Links added.
--- NOTE | 2020-02-15 15:59 | NUR ---
TELE/RN NOTES PATIENT IS AWAKE ALERT AND ORIENTED X4. PATIENT DENIES PAIN. NO RESPIRATORY DISTRESS NOTED. PATIENT IS MEDICALLY STABLE. PATIENT LEFT THE HOSPITAL AT [facility]. EXPLAINED THE RISK AND BENEFITS PATIENT STILL SIGN THE FORM FOR [facility]. PATIENT EATEN LUNCH BEFORE HE LEFT. Addendum: 02/15/20 at 1626 by SHARAN QUIJANO RN ERROR
--- NOTE | 2020-02-15 16:26 | NUR ---
TELE/RN NOTES PATIENT IS AWAKE ALERT AND ORIENTED X4. PATIENT DENIES PAIN. NO RESPIRATORY DISTRESS NOTED. PATIENT IS MEDICALLY STABLE. PATIENT LEFT THE HOSPITAL AT [facility]. EXPLAINED THE RISK AND BENEFITS PATIENT STILL SIGN THE FORM FOR [facility]. PATIENT EATEN LUNCH BEFORE HE LEFT. PATIENT VERBALIZED THAT HE DON'T WANT TO GET THE COPY FOR [facility] FORM.
== END 2020-02-15 14:15 | disposition left against medical advice (07) | DRG 817 ==
LOC: ER 15:28 → ICU 20:18 → TELE 02-14 12:20
PROVIDERS: ADMIT Internal Medicine; ATTEND Nurse Practitioner Acute Care
DX: T43.592A Poisoning by other antipsychotics and neuroleptics, intentional self-harm, initial encounter (principal); T48.1X2A Poisoning by skeletal muscle relaxants [neuromuscular blocking agents], intentional self-harm, initial encounter; Y92.89 Other specified places as the place of occurrence of the external cause; G92 Toxic encephalopathy; D63.8 Anemia in other chronic diseases classified elsewhere; E87.1 Hypo-osmolality and hyponatremia; R45.851 Suicidal ideations; Z79.899 Other long term (current) drug therapy; Z81.8 Family history of other mental and behavioral disorders; F29 Unspecified psychosis not due to a substance or known physiological condition; F12.129 Cannabis abuse with intoxication, unspecified; B19.20 Unspecified viral hepatitis C without hepatic coma; Z88.8 Allergy status to other drugs, medicaments and biological substances; F19.24 Other psychoactive substance dependence with psychoactive substance-induced mood disorder; F25.1 Schizoaffective disorder, depressive type
CPT/HCPCS: 36415; 80048-TC; 80053-TC; 80061-TC; 80076-TC; 80305; 81000-TC; 82962-TC; 83735-TC; 84100-TC; 84484-TC; 85025-TC; 87081-TC; 93307-TC; C9803-CS; G0378; G0480; J7030

== ENCOUNTER 2020-04-06 12:50 | Emergency (ER) | payer OTHER ==
[~2020-04-06] VITALS: Ht 175.3 cm; Wt 53.5 kg
[~2020-04-06 12:50] MED LIST: BUPR75TA8 PO; ESCI10TA PO; QUET50TA PO
--- NOTE | 2020-04-06 13:02 | NUR ---
URINE SPECIMEN COLLECTED AND SENT TO LAB.
--- NOTE | 2020-04-06 13:07 | NUR ---
SEEN AND EXAMINED BY .
--- NOTE | 2020-04-06 13:15 | NUR ---
SECURITY AT BEDSIDE FOR WANDING.
[2020-04-06] MEDS ORDERED: OLANZAPINE 5 MG TABLET PO ONE (13:30)
[2020-04-06 13:31] LABS: BASOPHILS # (AUTO) 0.1 /CMM (0.0-0.2); BASOPHILS % (AUTO) 1.3 % (0.0-2.0); EOSINOPHILS % (AUTO) 0.7 % (0.0-6.0); HEMATOCRIT 36 % (39-51); HEMOGLOBIN 11.2 g/dL (13.5-17.5); LYMPHOCYTES # (AUTO) 1.5 /CMM (0.8-4.8); LYMPHOCYTES % (AUTO) 23.4 % (20.0-44.0); MEAN CORPUSCULAR HGB CONC 31 g/dl (31.0-36.0); MEAN CORPUSCULAR VOLUME 70 fL (80-96); MONOCYTES # (AUTO) 0.5 /CMM (0.1-1.30); MONOCYTES % (AUTO) 7.6 % (2.0-12.0); NEUTROPHILS # (AUTO) 4.4 /CMM (1.8-8.9); PLATELET COUNT (AUTO) 577 /CMM (150-450); RED BLOOD CELL COUNT(AUTO) 5.13 MIL/uL (4.5-6.0); WHITE BLOOD COUNT (AUTO) 6.6 K/uL (4.3-11.0)
[2020-04-06 13:39] LABS: CALCIUM, SERUM 8.9 mg/dL (8.5-10.1); CARBON DIOXIDE 30 mmol/L (21-32); CHLORIDE 96 mmol/L (98-107); CREATININE 0.8 mg/dL (0.6-1.3); GLUCOSE 90 mg/dL (74-106); POTASSIUM 3.6 mmol/L (3.5-5.1); SODIUM SERUM 132 mmol/L (136-145); UREA NITROGEN, BLOOD 15 mg/dL (7-18)
[2020-04-06 13:44] LABS: ALANINE AMINOTRANSFERASE 34 U/L (12-78); ALBUMIN 3.9 g/dL (3.4-5.0); ALCOHOL, BLOOD < 3 mg/dL (0-0); ALKALINE PHOSPHATASE 78 U/L (46-116); ASPARTATE AMINOTRANSFERASE 23 U/L (15-37); BILIRUBIN,DIRECT 0.1 mg/dL (0.0-0.2); BILIRUBIN,TOTAL 0.4 mg/dL (0.2-1.0); TOTAL PROTEIN, SERUM 8.4 g/dL (6.4-8.2)
[2020-04-06 13:45] LABS: APPEARANCE,URINE CLEAR (CLEAR); BILIRUBIN,URINE NEGATIVE (NEGATIVE); BLOOD, URINE NEGATIVE Ery/uL (NEGATIVE); COLOR,URINE YELLOW (YELLOW); KETONES,URINE NEGATIVE (NEGATIVE); LEUKOCYTE ESTERASE ,URINE NEGATIVE (NEGATIVE); NITRITE, URINE NEGATIVE (NEGATIVE); PROTEIN,URINE NEGATIVE (NEGATIVE); UGLUCOSE NEGATIVE (NEGATIVE); UROBILINOGEN,URINE 0.2 EU/dL (0.2)
[2020-04-06 13:45] LABS: ACETAMINOPHEN < 2 ug/ml (10-30)
[2020-04-06] MEDS ORDERED: OLANZAPINE 5 MG TABLET ONE (14:06)
--- NOTE | 2020-04-06 16:10 | NUR ---
PER [facility] INTAKE NO BEDS AVAILABLE AT [place] POSSIBLE AT [facility] AT 1900H.
--- NOTE | 2020-04-06 19:44 | NUR ---
SPOKE TO WILMER FROM [facility]TAKE. STATES SHE DID NOT RECEIVE FAX. WILL REFAX PT INFO.
--- NOTE | 2020-04-06 19:57 | NUR ---
SPOKE TO [facility] GIL HUNTER RECEIVED FAXED CLINICALS.
--- NOTE | 2020-04-06 21:46 | NUR ---
accepted at [facility]zena martínez accepting md dr smith accepted room 210-a number for report ext [phone]
--- NOTE | 2020-04-06 21:53 | NUR ---
[facility]
--- NOTE | 2020-04-06 21:56 | NUR ---
SPOKE WITH RASHAAD FROM [facility], AMBULANCE ETA UNKNOWN WILL CALL BACK WITH UNIT AND ETA.
--- NOTE | 2020-04-06 22:03 | NUR ---
[facility] ETA 45 MINS FOR TRANSPORT PER RASHAAD FROM [facility]
[2020-04-06 22:22] VITALS: BP 116/79
--- NOTE | 2020-04-06 22:49 | NUR ---
REPORT GIVEN TO TRANSPORT TEAM FOR MERYL. AND TRANSFERRING RESPONSIBILTIES.
== END 2020-04-06 22:50 ==
LOC: ER 12:50
DX: R45.851 Suicidal ideations (principal); F20.9 Schizophrenia, unspecified; Z86.19 Personal history of other infectious and parasitic diseases; Z88.8 Allergy status to other drugs, medicaments and biological substances; Z20.828 Contact with and (suspected) exposure to other viral communicable diseases; Z79.899 Other long term (current) drug therapy
CPT/HCPCS: 36415; 80048; 80076; 80299; 80307; 80320; 81001; 85025; 87426; 99285; C9803; 81000-TC; G0480

== ENCOUNTER 2020-06-01 06:45 | Emergency (ER) | payer OTHER ==
[~2020-06-01] VITALS: Ht 175.3 cm; Wt 53.5 kg
--- NOTE | 2020-06-01 07:00 | NUR ---
URINE COLLECTED AND SENT TO LAB
--- NOTE | 2020-06-01 07:05 | NUR ---
BIBSELF C/O SUICIDAL IDEATION WITH PLAN TO LAY DOWN ON RAILROAD TRACK TO GET HIT BY ONCOMING TRAIN. PT AAOX4, CALM AND COOPERATIVE. VITAL SIGNS STABLE. RESPIRATIONS EVEN AND UNLABORED. SKIN WARM AND INTACT. AMBULATORY WITH STEADY GAIT. NO ACUTE DISTRESS NOTED AT THIS TIME.
--- NOTE | 2020-06-01 07:12 | NUR ---
COVID SWAB COLLECTED, CALLED LAB FOR FAMILY CENTERED SPECIALIST
--- NOTE | 2020-06-01 07:14 | NUR ---
CATALYTIC CASE OPERATOR AT BEDSIDE FOR BLOOD DRAW
[2020-06-01 07:23] LABS: BASOPHILS % (AUTO) 0.6 % (0.0-2.0); EOSINOPHILS % (AUTO) 0.5 % (0.0-6.0); HEMATOCRIT 31 % (39-51); HEMOGLOBIN 9.5 g/dL (13.5-17.5); LYMPHOCYTES # (AUTO) 1.5 /CMM (0.8-4.8); LYMPHOCYTES % (AUTO) 25.7 % (20.0-44.0); MEAN CORPUSCULAR HGB CONC 31 g/dl (31.0-36.0); MEAN CORPUSCULAR VOLUME 70 fL (80-96); MONOCYTES # (AUTO) 0.4 /CMM (0.1-1.30); MONOCYTES % (AUTO) 6.9 % (2.0-12.0); NEUTROPHILS % (AUTO) 66.3 % (43.0-81.0); PLATELET COUNT (AUTO) 492 /CMM (150-450); RED BLOOD CELL COUNT(AUTO) 4.45 MIL/uL (4.5-6.0)
[2020-06-01] MEDS ORDERED: OLANZAPINE 5 MG TABLET PO ONE (07:30)
--- NOTE | 2020-06-01 07:35 | NUR ---
REPORT GIVEN TO SHASHI LIMA FOR CONTINUITY OF CARE. NO ACUTE DISTRESS NOTED.
[2020-06-01 07:41] LABS: BILIRUBIN,URINE NEGATIVE (NEGATIVE); BLOOD, URINE NEGATIVE Ery/uL (NEGATIVE); COLOR,URINE YELLOW (YELLOW); LEUKOCYTE ESTERASE ,URINE NEGATIVE (NEGATIVE); NITRITE, URINE NEGATIVE (NEGATIVE); PROTEIN,URINE NEGATIVE (NEGATIVE); UGLUCOSE NEGATIVE (NEGATIVE); UROBILINOGEN,URINE 0.2 EU/dL (0.2)
[2020-06-01 07:42] LABS: ALANINE AMINOTRANSFERASE 24 U/L (12-78); ALBUMIN 3.6 g/dL (3.4-5.0); ALCOHOL, BLOOD < 3 mg/dL (0-0); ALKALINE PHOSPHATASE 101 U/L (46-116); ASPARTATE AMINOTRANSFERASE 19 U/L (15-37); BILIRUBIN,DIRECT 0.1 mg/dL (0.0-0.2); BILIRUBIN,TOTAL 0.3 mg/dL (0.2-1.0); CALCIUM, SERUM 8.8 mg/dL (8.5-10.1); CARBON DIOXIDE 28 mmol/L (21-32); CHLORIDE 100 mmol/L (98-107); CREATININE 0.7 mg/dL (0.6-1.3); GLUCOSE 87 mg/dL (74-106); POTASSIUM 4.7 mmol/L (3.5-5.1); SODIUM SERUM 136 mmol/L (136-145); TOTAL PROTEIN, SERUM 7.5 g/dL (6.4-8.2); UREA NITROGEN, BLOOD 28 mg/dL (7-18)
[2020-06-01 07:46] LABS: ACETAMINOPHEN < 2 ug/ml (10-30)
[2020-06-01] MEDS ORDERED: OLANZAPINE 5 MG TABLET ONE (07:53)
--- NOTE | 2020-06-01 10:17 | NUR ---
faxed clinicals to [facility]
--- NOTE | 2020-06-01 11:35 | NUR ---
TRANSFER INFO: PT ACCEPTED AT [facility] BY DR BHAT AND DR ZAYAS, RN FOR REPORT [phone] EXT [phone]
--- NOTE | 2020-06-01 11:47 | NUR ---
[id number] RES# [id number]
[2020-06-01 12:38] VITALS: BP 130/8
--- NOTE | 2020-06-01 12:38 | NUR ---
[facility] ETA 1300
[2020-06-01] MEDS ORDERED: ACETAMINOPHEN ES 500 MG TABLET ONE (12:42)
--- NOTE | 2020-06-01 12:52 | NUR ---
REPORT GIVEN TO ISABELLE HALL [facility]. AWAITING TRANSFER TO FLOOR.
[2020-06-01] MEDS ORDERED: ACETAMINOPHEN ES 500 MG TABLET PO ONE (13:00)
--- NOTE | 2020-06-01 13:28 | NUR ---
GAVE REPORT TO JOSE E LIU FROM [facility] UNIT 55.
== END 2020-06-01 13:33 ==
LOC: ER 06:54
DX: R45.851 Suicidal ideations (principal); F20.9 Schizophrenia, unspecified; Z86.19 Personal history of other infectious and parasitic diseases; Z20.828 Contact with and (suspected) exposure to other viral communicable diseases
CPT/HCPCS: 36415; 80048; 80076; 80299; 80307; 80320; 81003; 85025; 87426; 99285; C9803; G0480

== ENCOUNTER 2020-06-17 01:53 | Emergency (ER) | payer OTHER ==
[~2020-06-17] VITALS: Ht 175.3 cm; Wt 50.8 kg
[2020-06-17 02:23] VITALS: BP 139/74
--- NOTE | 2020-06-17 05:22 | NUR ---
Dimitris ruelas in [facility] - 06/17/20 at 0523 by GLORIA BIBSELF C/O BACK PAIN X2 DAYS -TRAUMA
--- NOTE | 2020-06-17 05:23 | NUR ---
OPEN BED NOW AVAILABLE IN ER. CALLED PATIENT TO BE PLACED IN ER BED FOR MEDICAL SCREENING EXAM. PT NOT IN WAITING ROOM OR OUTSIDE.
== END 2020-06-17 05:24 | disposition left against medical advice (07) ==
LOC: ER 01:53
DX: M54.9 Dorsalgia, unspecified (principal); Z53.21 Procedure and treatment not carried out due to patient leaving prior to being seen by health care provider

== ENCOUNTER 2020-10-22 06:13 | Emergency (ER) | payer OTHER ==
[~2020-10-22] VITALS: Ht 175.3 cm; Wt 50.8 kg
--- NOTE | 2020-10-22 06:13 | NUR ---
MED CLEARANCE FOR VOL PSYCH ADMIT: SI "RUN INTO TRAFFIC", +AH ADMITS TO METH AND MARIJUANA, PT TO BED 15, PT AAOX4, SI PRECAUTIONS OBSERVED, SITTER AT BEDSIDE, BELONGINGS KEPT IN SAFE PLACE. VSS. NOT IN ACUTE DISTRESS, -SOB, GOWNED PENDING ER PROVIDER MIGUEL ANGEL
[2020-10-22] MEDS ORDERED: OLANZAPINE 5 MG TABLET ONE (06:28)
[2020-10-22] MEDS ORDERED: OLANZAPINE 5 MG TABLET PO ONE (06:30)
--- NOTE | 2020-10-22 06:41 | NUR ---
COVID SWAB SENT
[2020-10-22 06:56] LABS: BASOPHILS # (AUTO) 0.1 /CMM (0.0-0.2); BASOPHILS % (AUTO) 0.8 % (0.0-2.0); EOSINOPHILS % (AUTO) 0.9 % (0.0-6.0); HEMATOCRIT 28 % (39-51); HEMOGLOBIN 8.7 g/dL (13.5-17.5); LYMPHOCYTES # (AUTO) 1.5 /CMM (0.8-4.8); LYMPHOCYTES % (AUTO) 15.6 % (20.0-44.0); MEAN CORPUSCULAR HGB CONC 31 g/dl (31.0-36.0); MEAN CORPUSCULAR VOLUME 66 fL (80-96); MONOCYTES # (AUTO) 0.8 /CMM (0.1-1.30); MONOCYTES % (AUTO) 8.9 % (2.0-12.0); NEUTROPHILS % (AUTO) 73.8 % (43.0-81.0); PLATELET COUNT (AUTO) 530 /CMM (150-450); RED BLOOD CELL COUNT(AUTO) 4.28 MIL/uL (4.5-6.0); WHITE BLOOD COUNT (AUTO) 9.4 K/uL (4.3-11.0)
--- NOTE | 2020-10-22 07:39 | NUR ---
COVID RESULT POSITIVE
[2020-10-22 08:04] LABS: ALANINE AMINOTRANSFERASE 57 U/L (12-78); ALBUMIN 3.8 g/dL (3.4-5.0); ALCOHOL, BLOOD < 3 mg/dL (0-0); ALKALINE PHOSPHATASE 106 U/L (46-116); ASPARTATE AMINOTRANSFERASE 38 U/L (15-37); BILIRUBIN,TOTAL 0.3 mg/dL (0.2-1.0); CALCIUM, SERUM 8.8 mg/dL (8.5-10.1); CARBON DIOXIDE 27 mmol/L (21-32); CHLORIDE 100 mmol/L (98-107); CREATININE 0.6 mg/dL (0.6-1.3); GLUCOSE 91 mg/dL (74-106); SODIUM SERUM 136 mmol/L (136-145); TOTAL PROTEIN, SERUM 8.1 g/dL (6.4-8.2); UREA NITROGEN, BLOOD 31 mg/dL (7-18)
[2020-10-22 08:07] LABS: ACETAMINOPHEN < 10 ug/ml (10-30)
[2020-10-22 09:04] LABS: BILIRUBIN,DIRECT 0.2 mg/dL (0.0-0.2)
[2020-10-22 10:02] LABS: EOSINOPHILS % (MANUAL) 2 % (0-4); LYMPHOCYTES % (MANUAL) 10 % (16-48); MONOCYTES % (MANUAL) 8 % (0-11.0); NEUTROPHILS % (MANUAL) 80 (42-76)
--- NOTE | 2020-10-22 10:54 | NUR ---
Loss Prevention Agent note: Loss Prevention Agent consultation requested for SI. Patient is a 40 year old male, who came to the ED for medical clearance after presenting to [facility] for voluntary psychiatric hospitalization. WILL referred patient to the ED for medical clearance. Per ED physician's notes, patient has a hx of Schizoaffective Disorder, and has not been compliant with her medications for the last week or so. Patient is verbalizing SI with a plan to run into traffic. COVID swab done in the ED, and patient is COVID positive. Patient is requesting to go to [facility] for voluntary inpatient psychiatric admission. This MANAGING ATTORNEY faxed patient's clinicals to Maurilio, [employer]er at [facility], ; tel # [phone]. This MANAGING ATTORNEY also spoke with Maurilio, who is aware of referral and will review for possible admission. Pending admission to [facility].
--- NOTE | 2020-10-22 12:27 | NUR ---
This CHEMICAL PROCESSING EQUIPMENT REPAIRER was informed by Maurilio at [facility] that [facility] has a COVID bed available for inpatient psych, however patient's case was still being reviewed for admission. Waiting to hear back from [facility] regarding possible admission. This CHEMICAL PROCESSING EQUIPMENT REPAIRER informed SHASHI Warner of above.
--- NOTE | 2020-10-22 14:11 | NUR ---
This INSTRUCTIONAL MATERIAL DIRECTOR received a call from Maurilio at [facility], stating that patient has been accepted at [facility] for voluntary inpatient psychiatric admission. [facility] to contact [facility] ED directly for transfer instructions and [id number] report. This INSTRUCTIONAL MATERIAL DIRECTOR informed Minh at [facility] ED of patient's admission.
--- NOTE | 2020-10-22 14:11 | NUR ---
PT ACCEPTED TO [facility] IN [place] UND[address] DANIELLE CALL [phone] X [phone] Addendum: 10/22/20 at 1441 by SOHAM ROOM 436A FLOOR EXTENSION [phone]
--- NOTE | 2020-10-22 14:26 | NUR ---
CALLED [facility] [phone] [facility] [phone] WILL CALL WITH ETA AND TRANSPORT.
--- NOTE | 2020-10-22 14:49 | NUR ---
PATIENT GOING TO [facility] [place] ROOM 436A EXT [phone]
--- NOTE | 2020-10-22 14:53 | NUR ---
REPORT GIVEN TO NURSE JAMES
--- NOTE | 2020-10-22 15:13 | NUR ---
THE PATIENT RESTING IN BED. DENIES ANY DISTRESS. WILL CONTINUE TO MONITOR THE PATIENT.
--- NOTE | 2020-10-22 17:00 | NUR ---
THE PATIENT IN STABLE CONDITION AND GOT PICKED UP VIA ARRANGED TRANSPO TO [facility].
[2020-10-22 17:01] VITALS: BP 127/82
== END 2020-10-22 17:01 ==
LOC: ER 06:13
DX: F29 Unspecified psychosis not due to a substance or known physiological condition (principal); U07.1 COVID-19; F19.10 Other psychoactive substance abuse, uncomplicated; R45.851 Suicidal ideations; D50.9 Iron deficiency anemia, unspecified; F25.9 Schizoaffective disorder, unspecified; Z20.822 Contact with and (suspected) exposure to COVID-19; Z86.19 Personal history of other infectious and parasitic diseases; Z88.8 Allergy status to other drugs, medicaments and biological substances
CPT/HCPCS: 36415; 80048; 80076; 80299; 80307; 80320; 85007; 85025; 87426; 99285; C9803; G0480

== ENCOUNTER 2020-11-30 08:00 | Emergency (ER) | payer OTHER ==
[~2020-11-30] VITALS: Ht 175.3 cm; Wt 54.0 kg
--- NOTE | 2020-11-30 08:00 | NUR ---
PT BIB SELF C/O SI "I WANT TO JUMP IN FRONT OF THE TRAIN" PT IS AAOX4, NOT IN RESPIRATORY DISTRESS, V/S STABLE, KEPT RESTED AND COMFORTABLE. SITTER AT BEDSIDE. WILL CONTINUE TO MONITOR.
--- NOTE | 2020-11-30 09:19 | NUR ---
URINE SPECIMEN COLLECTED AND SENT TO LAB.
--- NOTE | 2020-11-30 09:22 | NUR ---
SEEN AND EXAMINED BY
[2020-11-30 09:34] LABS: HEMATOCRIT 29 % (39-51); HEMOGLOBIN 8.7 g/dL (13.5-17.5); MEAN CORPUSCULAR HGB CONC 30 g/dl (31.0-36.0); MEAN CORPUSCULAR VOLUME 65 fL (80-96); PLATELET COUNT (AUTO) 534 /CMM (150-450); RED BLOOD CELL COUNT(AUTO) 4.51 MIL/uL (4.5-6.0); WHITE BLOOD COUNT (AUTO) 5.6 K/uL (4.3-11.0)
[2020-11-30 09:35] LABS: BASOPHILS # (AUTO) 0.1 /CMM (0.0-0.2); EOSINOPHILS % (AUTO) 2.8 % (0.0-6.0); MONOCYTES # (AUTO) 0.7 /CMM (0.1-1.30); MONOCYTES % (AUTO) 12.2 % (2.0-12.0); NEUTROPHILS # (AUTO) 3.7 /CMM (1.8-8.9)
[2020-11-30 09:49] LABS: ALANINE AMINOTRANSFERASE 32 U/L (12-78); ALBUMIN 3.9 g/dL (3.4-5.0); ALCOHOL, BLOOD < 3 mg/dL (0-0); ALKALINE PHOSPHATASE 90 U/L (46-116); ASPARTATE AMINOTRANSFERASE 21 U/L (15-37); BILIRUBIN,DIRECT 0.1 mg/dL (0.0-0.2); BILIRUBIN,TOTAL 0.5 mg/dL (0.2-1.0); CALCIUM, SERUM 8.9 mg/dL (8.5-10.1); CARBON DIOXIDE 30 mmol/L (21-32); CHLORIDE 101 mmol/L (98-107); CREATININE 0.9 mg/dL (0.6-1.3); GLUCOSE 111 mg/dL (74-106); POTASSIUM 3.9 mmol/L (3.5-5.1); SODIUM SERUM 138 mmol/L (136-145); TOTAL PROTEIN, SERUM 7.8 g/dL (6.4-8.2); UREA NITROGEN, BLOOD 32 mg/dL (7-18)
[2020-11-30 09:51] LABS: ACETAMINOPHEN < 2 ug/ml (10-30)
[2020-11-30 09:52] LABS: BILIRUBIN,URINE SMALL (NEGATIVE); COLOR,URINE YELLOW (YELLOW); LEUKOCYTE ESTERASE ,URINE Negative (NEGATIVE); NITRITE, URINE Negative (NEGATIVE); PH,URINE 5.5 (5.0-8.0); PROTEIN,URINE 30 mg/dl (NEGATIVE); UGLUCOSE Negative (NEGATIVE); UROBILINOGEN,URINE 0.2 EU/dL (0.2)
[2020-11-30 10:07] LABS: BACTERIA,URINE Rare /HPF (None Seen); RBC,URINE NONE SEEN /HPF (0-2); SQUAMOUS EPITHELIAL CELL,UR Few /HPF (None Seen); WBC,URINE NONE SEEN /HPF (0-3)
--- NOTE | 2020-11-30 11:33 | NUR ---
LAB CALLED, COVID NEGATIVE
[2020-11-30 11:41] LABS: BASOPHILS % (MANUAL) 1 % (0.0-2.0); EOSINOPHILS % (MANUAL) 4 % (0-4); LYMPHOCYTES % (MANUAL) 23 % (16-48); MONOCYTES % (MANUAL) 8 % (0-11.0); NEUTROPHILS % (MANUAL) 64 (42-76)
--- NOTE | 2020-11-30 12:30 | NUR ---
The patient is provided with lunch. Noted to have good appetite and tolerated food well. Will continue to monitor the patient.
--- NOTE | 2020-11-30 13:00 | NUR ---
The patient is alert and oriented x3. Denies pain. In room air and denies SOB. Respiration regular and unlabored. In stable condition. Sitter at the bedside. Will continue to monitor the patient.
--- NOTE | 2020-11-30 14:11 | NUR ---
FAXED [facility] INTAKE
--- NOTE | 2020-11-30 14:25 | NUR ---
[facility] RECEIVED FAX AND WILL CALLBACK
--- NOTE | 2020-11-30 16:23 | NUR ---
[facility] NUYS STILL PROGRESSING
--- NOTE | 2020-11-30 17:48 | NUR ---
ACCEPTED AT [facility] BY DR. FELICIANO. REPORT TO [phone] EXT. [id number] Addendum: 11/30/20 at 1805 by ELODIA ACCEPTED TO [facility]
--- NOTE | 2020-11-30 18:03 | NUR ---
REPORT GIVEN TO NURSE OLSON FROM [facility]
--- NOTE | 2020-11-30 18:09 | NUR ---
CALLED FOR [facility] AND ETA IS 90 MIN
--- NOTE | 2020-11-30 18:27 | NUR ---
[facility] CALLED BACK. ETA IS NOW 30 MIN
[2020-11-30] MEDS ORDERED: FERR325T23 PO (18:58)
--- NOTE | 2020-11-30 19:00 | NUR ---
THE PATIENT REFUSED TO GO TO [facility] [place]. DR CHEEMA MADE AWARE.
[2020-11-30 19:14] VITALS: BP 131/74
--- NOTE | 2020-11-30 19:14 | NUR ---
The patient alert and oriented x4. Denies SI/HI. In room air and denies SOB. Respiration regular and unlabored. Denies pain. Patient discharged to home in stable condition. Written and verbal after care instructions given. Patient verbalizes understanding of instruction.
== END 2020-11-30 19:15 | disposition home or self-care (01) ==
LOC: ER 08:08
DX: R45.851 Suicidal ideations (principal); F25.9 Schizoaffective disorder, unspecified; Z20.822 Contact with and (suspected) exposure to COVID-19; Z88.8 Allergy status to other drugs, medicaments and biological substances; Z86.19 Personal history of other infectious and parasitic diseases; Z79.899 Other long term (current) drug therapy
CPT/HCPCS: 36415; 80048; 80076; 80143; 80307; 80320; 81001; 85007; 85025; 87426; 99285; C9803; G0480

== ENCOUNTER 2020-12-18 07:55 | Emergency (ER) | payer OTHER ==
[~2020-12-18] VITALS: Ht 180.3 cm; Wt 59.0 kg
[~2020-12-18 07:55] MED LIST changes: +FERR325T23 PO
--- NOTE | 2020-12-18 07:55 | NUR ---
PT BIB SELF C/O SI "I WANT TO OD ON PILLS" REQUESTING VOLUNTARY ADMISSION TO [facility]. PT IS AAOX4, NOT IN RESPIRATORY DISTRESS, V/S STABLE, KEPT RESTED AND COMFORTABLE. WILL CONTINUE TO MONITOR.
--- NOTE | 2020-12-18 08:32 | NUR ---
ER PHLEB AT BEDSIDE FOR BLOOD DRAW.
[2020-12-18] MEDS ORDERED: QUETIAPINE FUMARATE 25 MG TABLET ONE (08:35)
--- NOTE | 2020-12-18 08:38 | NUR ---
URINE SPECIMEN COLLECTED AND SENT TO LAB.
[2020-12-18] MEDS: QUETIAPINE FUMARATE 25 MG TABLET PO STA (08:39)
[2020-12-18 08:44] LABS: BASOPHILS # (AUTO) 0.1 K/uL (0.0-0.2)
[2020-12-18 08:47] LABS: EOSINOPHILS % (AUTO) 1.4 % (0.0-6.0); HEMATOCRIT 28 % (39-51); HEMOGLOBIN 8.6 g/dL (13.5-17.5); LYMPHOCYTES # (AUTO) 1.5 K/uL (0.8-4.8); LYMPHOCYTES % (AUTO) 17.4 % (20.0-44.0); MEAN CORPUSCULAR HGB CONC 30 g/dl (31.0-36.0); MEAN CORPUSCULAR VOLUME 63 fL (80-96); MONOCYTES # (AUTO) 0.6 K/uL (0.1-1.30); MONOCYTES % (AUTO) 6.7 % (2.0-12.0); NEUTROPHILS # (AUTO) 6.3 K/uL (1.8-8.9); NEUTROPHILS % (AUTO) 73.5 % (43.0-81.0); PLATELET COUNT (AUTO) 483 K/uL (150-450); WHITE BLOOD COUNT (AUTO) 8.6 K/uL (4.3-11.0)
[2020-12-18 08:48] LABS: CARBON DIOXIDE 30 mmol/L (21-32); CHLORIDE 99 mmol/L (98-107); CREATININE 0.7 mg/dL (0.6-1.3); GLUCOSE 98 mg/dL (74-106); POTASSIUM 4.2 mmol/L (3.5-5.1); SODIUM SERUM 135 mmol/L (136-145); UREA NITROGEN, BLOOD 27 mg/dL (7-18)
[2020-12-18 08:48] LABS: BILIRUBIN,URINE Negative (NEGATIVE); COLOR,URINE YELLOW (YELLOW); LEUKOCYTE ESTERASE ,URINE Negative (NEGATIVE); NITRITE, URINE Negative (NEGATIVE); PROTEIN,URINE 100 mg/dl (NEGATIVE); UGLUCOSE Negative (NEGATIVE); UROBILINOGEN,URINE 0.2 EU/dL (0.2)
[2020-12-18 08:53] LABS: BACTERIA,URINE Rare /HPF (None Seen); RBC,URINE 0-2 /HPF (0-2); SQUAMOUS EPITHELIAL CELL,UR Rare /HPF (None Seen); WBC,URINE 0-2 /HPF (0-3)
[2020-12-18 08:54] LABS: ACETAMINOPHEN 0 ug/ml (10-30); ALANINE AMINOTRANSFERASE 50 U/L (12-78); ALBUMIN 4.1 g/dL (3.4-5.0); ALCOHOL, BLOOD < 3 mg/dL (0-0); ALKALINE PHOSPHATASE 90 U/L (46-116); ASPARTATE AMINOTRANSFERASE 27 U/L (15-37); BILIRUBIN,DIRECT 0.1 mg/dL (0.0-0.2); BILIRUBIN,TOTAL 0.4 mg/dL (0.2-1.0); TOTAL PROTEIN, SERUM 8.3 g/dL (6.4-8.2)
[2020-12-18 09:33] LABS: LYMPHOCYTES % (MANUAL) 21 % (16-48); MONOCYTES % (MANUAL) 7 % (0-11.0); NEUTROPHILS % (MANUAL) 72 (42-76)
--- NOTE | 2020-12-18 10:00 | NUR ---
FAXED CLINICALS TO [facility].
--- NOTE | 2020-12-18 10:05 | NUR ---
SS Consult: SS Consult: SS Consult requested for SI, Homelessness, and drug use. The pt. is a 35 year old male who presents to the ED with C/O SI w/plan to "run into traffic". The pt. appears unkempt, A&O X4 and makes poor eye contact. Pt.'s mood dysphoric, pt. is irritable and defensive. The pt. states he has been experiencing SI since yesterday and has a plan to "run into traffic". HÉCTOR offered pt. voluntary admission to a psych facility for treatment and pt. is agreeable. Pt. states he is experiencing homeless and sleeps on the street. Pt. states denies drug and ETOH use. However, pt. tested positive for Cannabinoids and Amphetamine. Pt. denies Hx. of mental health issues. Pt. denies HI and denies visual hallucinations. Plan: SW referred pt. to [facility] [[facility] [place] [address] FAX:[phone]] for inpatient psychiatric treatment. Patient signed homeless waiver & it was placed in the pt.'s chart. SW provided pt. with the following homeless resources and pt. accepted them: Substance Abuse resources provided included: [facility] Substance Abuse Self-Helpline ([facility]) ; CRI -HELP 67155 [facility]. [place] [address] ; [facility] 93404 [facility] [address]6862 ; [facility] Rehabilitation Program 02467 [facility] Hospital [address] ; [facility] [address] [facility] [address] ; [facility] 4940 [facility] [address] ; [facility] 909 [facility] [address] ; [facility] Substance Abuse Helpline([facility])-[facility] ; [facility] ; [facility] [place]; [facility] [place]; Cri-Help [place]; I-ADARP Inter Agency Drug Abuse Recovery Jj Santillan; [facility] [place]; [facility]; [facility] Tarza; [facility]'s [place], [facility]. [facility]; Alcoholics Anonymous -SFV; Sj-Fdiz-Kstgxyt ; Marijuana Anonymous -SFV; Narcotics Anonymous www.na.org; Year-round shelters: [place] [address], [place] [address] ; [facility] [place] [address] [place] [address]; [facility] Ouprfiu3895 [facility] [address] Winter Shelters: [facility] Provider: Volunteers of Nettie [place] Address: 33[address] NCalais Regional Hospitaltonja Davalos, [address] # of Beds: 47 Population Served: [facility] 6 | [facility] Elisabeth Danielhune [place] Provider: Home at Last Address: [address] [place] [address], [address] # of Beds: 66 Population Served: [facility] Corebook [place] Provider: First to Serve Address: 74137 [facility], [address] # of Beds: 56 Population Served: [facility] Speedy BrandenHair TejedaTimber [place] Provider: SSG/Ms. Florence'irais House Address: [address] [facility], [address] # of Beds: 49 Population Served: [facility] 8 | [facility] Provider: First to Serve Address: 45[address] [facility], [address] # of Beds: 37 Population Served: Coed Hygiene: [facility] [facility]: [address] [address] Keller. [place] ; [facility] 60781 [facility] ; [facility] 6905 [place] Arianna, [place] Jacque . Food Resources: [facility]- [address]. [place]; Meet Each Need with Dignity ([facility]) 02065 [facility] CenterHair [place]; [facility] Food Pantry 3536 [facility]; [facility] 3313 [facility]. Mental Health resources provided: [facility] [address] [place], [place] [address] ; [facility] Mental Health Center, Inc. 14087 [facility] [address], [place], [place] [phone] ; [facility] [address]43 [place], [place] [phone] ; [facility] 62287 [place], [place] 39[address] Healthcare Clinics: [facility] [address], [address] [facility] ; [facility] [address] [facility] [address] [place] [address]; [facility] Health [place] [address]34 [facility]. [place] [phone] Counseling--Outpatient [facility] [address] [facility], [address] [place], [place] [id number] (Specializes in in-depth psychotherapy for emotional distress: anxiety, depression, interpersonal conflicts, life transitions, childhood abuse) [facility] [address]9594 [place], [place] [phone] (Assist with solving problem marital difficulties, separation & divorce, aging parents, & grief, chronic & terminal illness) [facility] 20225 [place] [address] (Deal with loss & grief, anxiety, marital difficulties) Homebound/Mental Health Services [address], [address] [place], [place] [address] (Provide in-home mental services to people who are incapable of leaving their homes) Organization for Needs of the Elderly Senior Service/Resource Center [address]. [place], [place] [phone] [facility] [address] Keller. [place], [place] [phone] PSYCHIATRIC OUTPATIENT SERVICES [facility] Partial Hospitalization and Intensive Outpatient Program (Managed Care and [place] Only)22595 Nitish Deal. [facility] [phone] [facility] Partial Hospitalization and Outpatient [id number] Nitish [address]. [address] [place], [place] [phone] [facility] Partial Hospitalization and Outpatient Brqswia8902 U[facility] Hospitalsrinivas. [place], [place] [phone] [facility] Mental Health Center [id number] [address]. [address] [place], [place] [phone] [facility] Jacque Partial Hospitalization and Outpatient Nvftxut24538 [address] Mcneal, [phone] Addendum: 12/18/20 at 1258 by ROSLYN Correct Note: SS Consult requested for SI, Homelessness, and drug use. The pt. is a 40year old male who presents to the ED with C/O SI w/plan to "OD on medication". The pt. appears well-groomed, A&O X4 and makes good eye contact. Pt.'s mood is euthymic. The pt. states he has been experiencing SI since yesterday and has a plan to "OD on medication". Per pt., he is experiencing AH that tell him, "to kill myself". SW offered pt. voluntary admission to a psych facility for treatment and pt. is agreeable. Pt. states he has been homeless "on and off" for the past 6 months and sleeps on the street. Pt. states denies ETOH use and admits using meth 2 days ago and states he also uses Cannabinoids. Pt. states he has a Hx. of Schizoaffective disorder and is currently on Seroquel and doesn't take it as prescribed. Pt. denies HI and denies visual hallucinations. Plan: SW referred pt. to [facility] [[address] [place] [address] FAX:[phone]] for inpatient psychiatric treatment. Patient signed homeless waiver & it was placed in the pt.'s chart. SW provided pt. with the following homeless resources and pt. accepted them: Substance Abuse resources provided included: [facility] Substance Abuse Self-Helpline (SAS) ; CRI -HELP 00757 [facility]. [place] [address] ; [facility] 97918 [facility] [address]1356 ; [facility] Rehabilitation Program 03850 [facility] [address] ; [facility] 400 [facility] [address] ; [facility] 0002 [facility] [address]03 ; [facility] [address] [facility] [phone] ; [facility] Substance Abuse Helpline(SAS)-[facility] ; [facility] ; [facility] [place]; [facility] [place]; Cri-Help [place]; I-ADARP Inter Agency Drug Abuse Recovery Jj Santillan; [facility]; [facility]; [facility]; [facility]'s [place], Inc. [facility]; Alcoholics Anonymous -SFV; Zk-Kmwt-Rrexqde ; Marijuana Anonymous -SFV; Narcotics Anonymous www.na.org; Year-round shelters: [place] [address] [place], [place] [address] ; [facility] [place] [address] [place] [address]; [facility] Uqtirhq8194 [facility] [address] Winter Shelters: Adrianne Mueller Provider: Albertina of Nettie [place] Address: [address] [place], [address] # of Beds: 47 Population Served: [facility]vi [facility] 6 | [facility] Elisabeth Emery [place] Provider: Home at Last Address: [address] [facility], [address] # of Beds: 66 Population Served: Brent Corebook [place] Provider: First to Serve Address: 62391 [facility], [address] # of Beds: 56 Population Served: Brent Mueller Provider: /Ms. Florence's House Address: [address] [facility], [address] # of Beds: 49 Population Served: Coed SPA 8 | [place] Cecile Mueller Provider: First to Serve Address: [address] Rousseau BlvdHair [place] [address] # of Beds: 37 Population Served: Coed Hygiene: [place] [facility] [facility]: [address] [place] ; [facility] 17286 [facility] Resmills-peninsula [facility] ; [facility] [address], [place] . Food Resources: [facility]- 5666 Panch[address] [facility]; Meet Each Need with Dignity ([facility]) 76243 [facility]; [facility] Food Pantry 4302 [facility]; [facility] 3333 [facility]. Mental Health resources provided: [facility] [address]37 [place], [place] [address]41 ; [facility] Mental Health [place], Inc. 39998 [facility] [address], [place], [place] [address] ; [facility] 55615 [place] [address] ; [facility] [address]990 [place], [place] [phone] Healthcare Clinics: [facility] [address], [address] [place]. [place] ; [facility] Healthcare Clinic [address] [facility] [address] [place] [address]; [facility] 81232 [facility]. [place] [phone] Counseling--Outpatient [facility] [address] [facility], [place] [address] (Specializes in in-depth psychotherapy for emotional distress: anxiety, depression, interpersonal conflicts, life transitions, childhood abuse) [facility] 61566 [place] [address] (Assist with solving problem marital difficulties, separation & divorce, aging parents, & grief, chronic & terminal illness) [facility] 11801 [place] [address] (Deal with loss & grief, anxiety, marital difficulties) Homebound/Mental Health Services [address], [address] [place], [place] [address] (Provide in-home mental services to people who are incapable of leaving their homes) Organization for Needs of the Elderly Senior Service/Resource Center 12689 [address] [place], [place] [phone] [facility] 6514 [facility] Baptist Medical Centerjean-pierre [place] [address] PSYCHIATRIC OUTPATIENT SERVICES [facility] Partial Hospitalization and Intensive Outpatient Program (Managed Care and [place] Only)70518 Ivor Toyin. [facility] [phone] [facility] Partial Hospitalization and Outpatient [id number] [address]itish [address]. [address] [place], [place] [phone] [facility] Partial Hospitalization and Outpatient Pzhdsog5339 [place] Jacque [facility]. [place], [place] [phone] JJ [facility] Mental Health Center [id number] [address]. [address] [place], [place] [phone] [facility] Centermarino Partial Hospitalization and Outpatient Pkgxays20552 Emelita [facility] Jj Santillan [phone]
--- NOTE | 2020-12-18 12:47 | NUR ---
ACCEPTED AT [facility],REPORT TO [phone] EXT. [phone], WESLEY
--- NOTE | 2020-12-18 14:22 | NUR ---
PLEASE CALL [facility] @: [phone] X [phone] FOR REPORT.
--- NOTE | 2020-12-18 14:33 | NUR ---
CALLED TRANSPORT ERASTO CARLISLE IS 90 MINS.
[2020-12-18 15:00] VITALS: BP 145/98
--- NOTE | 2020-12-18 16:52 | NUR ---
TRANSPORTED TO [facility]. STABLE CONDITION.
== END 2020-12-18 17:15 ==
LOC: ER 08:22
DX: R45.851 Suicidal ideations (principal); F25.9 Schizoaffective disorder, unspecified; Z91.14 Patient's other noncompliance with medication regimen; Z59.0 Homelessness; D50.9 Iron deficiency anemia, unspecified; F15.10 Other stimulant abuse, uncomplicated; F12.10 Cannabis abuse, uncomplicated; Z20.822 Contact with and (suspected) exposure to COVID-19
CPT/HCPCS: 36415; 80048; 80076; 80143; 80307; 80320; 81001; 85007; 85025; 87426; 99285; C9803; G0480

== ENCOUNTER 2020-12-26 07:47 | Emergency (ER) | payer OTHER ==
[~2020-12-26] VITALS: Ht 180.3 cm; Wt 60.3 kg
--- NOTE | 2020-12-26 08:00 | NUR ---
urine sent to the lab
[2020-12-26 08:29] LABS: BILIRUBIN,URINE SMALL (NEGATIVE); COLOR,URINE YELLOW (YELLOW); LEUKOCYTE ESTERASE ,URINE Negative (NEGATIVE); NITRITE, URINE Negative (NEGATIVE); PH,URINE 5.5 (5.0-8.0); PROTEIN,URINE Negative (NEGATIVE); UGLUCOSE Negative (NEGATIVE); UROBILINOGEN,URINE 0.2 EU/dL (0.2)
[2020-12-26 08:41] LABS: BASOPHILS % (AUTO) 0.8 % (0.0-2.0); EOSINOPHILS % (AUTO) 0.8 % (0.0-6.0); HEMATOCRIT 27 % (39-51); HEMOGLOBIN 8.1 g/dL (13.5-17.5); LYMPHOCYTES # (AUTO) 1.1 K/uL (0.8-4.8); LYMPHOCYTES % (AUTO) 22.5 % (20.0-44.0); MEAN CORPUSCULAR HGB CONC 30 g/dl (31.0-36.0); MEAN CORPUSCULAR VOLUME 64 fL (80-96); MONOCYTES # (AUTO) 0.5 K/uL (0.1-1.30); MONOCYTES % (AUTO) 9.3 % (2.0-12.0); NEUTROPHILS # (AUTO) 3.3 K/uL (1.8-8.9); NEUTROPHILS % (AUTO) 66.6 % (43.0-81.0); PLATELET COUNT (AUTO) 529 K/uL (150-450); RED BLOOD CELL COUNT(AUTO) 4.27 MIL/uL (4.5-6.0); WHITE BLOOD COUNT (AUTO) 4.9 K/uL (4.3-11.0)
--- NOTE | 2020-12-26 08:53 | NUR ---
COVID SWAB DONE AND SENT TO THE LAB
[2020-12-26 08:54] LABS: CALCIUM, SERUM 8.9 mg/dL (8.5-10.1); CARBON DIOXIDE 27 mmol/L (21-32); CHLORIDE 102 mmol/L (98-107); CREATININE 0.8 mg/dL (0.6-1.3); GLUCOSE 80 mg/dL (74-106); POTASSIUM 4.6 mmol/L (3.5-5.1); SODIUM SERUM 139 mmol/L (136-145); UREA NITROGEN, BLOOD 21 mg/dL (7-18)
[2020-12-26 09:08] LABS: ACETAMINOPHEN < 0 ug/ml (10-30); ALANINE AMINOTRANSFERASE 36 U/L (12-78); ALBUMIN 3.8 g/dL (3.4-5.0); ALCOHOL, BLOOD < 3 mg/dL (0-0); ALKALINE PHOSPHATASE 90 U/L (46-116); ASPARTATE AMINOTRANSFERASE 21 U/L (15-37); BILIRUBIN,DIRECT 0.1 mg/dL (0.0-0.2); BILIRUBIN,TOTAL 0.3 mg/dL (0.2-1.0); TOTAL PROTEIN, SERUM 7.7 g/dL (6.4-8.2)
[2020-12-26 09:26] LABS: BACTERIA,URINE None seen /HPF (None Seen); RBC,URINE 0-2 /HPF (0-2); SQUAMOUS EPITHELIAL CELL,UR Few /HPF (None Seen); WBC,URINE 0-2 /HPF (0-3)
[2020-12-26 10:05] LABS: EOSINOPHILS % (MANUAL) 1 % (0-4); LYMPHOCYTES % (MANUAL) 16 % (16-48); MONOCYTES % (MANUAL) 9 % (0-11.0); NEUTROPHILS % (MANUAL) 74 (42-76)
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
--- NOTE | 2020-12-26 10:50 | NUR ---
Coin Rolling Machine Operator note: Clinicals faxed to [facility], , for review. Pending acceptance.
--- NOTE | 2020-12-26 13:55 | NUR ---
SPOKE WITH HÉCTOR CALDWELL AND THEY ARE STILL CURRENTLY LOOKING FOR PLACEMENT FOR PATIENT. REQUESTED THAT WE DO A COVID TEST IN ORDER FOR HIM TO BE ACCEPTED AT ANY LOCATION.
--- NOTE | 2020-12-26 18:21 | NUR ---
RECEIVED A CALL FORM ALICIA FROM [facility]. PT ACCEPTED UNDER THE CARE OF DR. GARCIA/MARQUEZ. NUMBER FOR REPORT IS [phone] EXT. [phone].
--- NOTE | 2020-12-26 18:26 | NUR ---
CALLED [facility] FOR TRANSPORT TO [facility]. ETA 90 MINUTES.
--- NOTE | 2020-12-26 19:15 | NUR ---
REPORT GIVEN TO NURSE LUCY FROM [facility]
--- NOTE | 2020-12-26 20:38 | NUR ---
[facility] AT BEDSIDE FOR TRASNPROT TO [facility]. REPORT GIVEN. PT IS IN STABLE CONDITION FOR TRANSPORT. HE IS AMBULATORY ON STEADY GAIT. BELONGINGS WHERE GIVEN TO EMT TRANSPORT
[2020-12-26 20:46] VITALS: BP 124/80
--- NOTE | 2020-12-26 20:46 | NUR ---
PT LEFT ON GURFRANKIE WITH 2 EMT AT BEDSIDE
== END 2020-12-26 20:47 ==
LOC: ER 07:49
DX: F32.9 Major depressive disorder, single episode, unspecified (principal); F25.9 Schizoaffective disorder, unspecified; Z59.0 Homelessness; Z79.899 Other long term (current) drug therapy; D50.9 Iron deficiency anemia, unspecified; Z20.822 Contact with and (suspected) exposure to COVID-19; F15.10 Other stimulant abuse, uncomplicated; F14.10 Cocaine abuse, uncomplicated
CPT/HCPCS: 36415; 80048; 80076; 80143; 80307; 80320; 81001; 85007; 85025; 87426; 99285; C9803; G0480

== ENCOUNTER → 2021-01-16 | Emergency (ER) | payer OTHER ==
[~2021-01-16] VITALS: Ht 180.3 cm; Wt 60.3 kg
--- NOTE | 2021-01-16 05:50 | NUR ---
TO ER BED REQUESTING MEDICAL CLEARANCE FOR VOLUNTARY PSYCH ADMISSION. PT C/O "IM HEARING VOICES TELLING ME TO TAKE ALL MY PILLS." DENIES HI. PT AAOX4 NO ACUTE DISTRESS NOTED, RESP EVEN AND UNLABORED. PT CALM AND COOPERATIVE AT THIS TIME.
--- NOTE | 2021-01-16 05:55 | NUR ---
URINE SAMPLE COLLECTED AND SENT TO LAB.
[2021-01-16 06:12] LABS: BILIRUBIN,URINE Negative (NEGATIVE); COLOR,URINE YELLOW (YELLOW); LEUKOCYTE ESTERASE ,URINE Negative (NEGATIVE); NITRITE, URINE Negative (NEGATIVE); PH,URINE 5.5 (5.0-8.0); PROTEIN,URINE 30 mg/dl (NEGATIVE); UGLUCOSE Negative (NEGATIVE); UROBILINOGEN,URINE 0.2 EU/dL (0.2)
--- NOTE | 2021-01-16 06:12 | NUR ---
BLOOD DRAWN BY BOAT PERSON.
[2021-01-16 06:20] LABS: BASOPHILS # (AUTO) 0.1 K/uL (0.0-0.2); BASOPHILS % (AUTO) 0.9 % (0.0-2.0); EOSINOPHILS % (AUTO) 1.7 % (0.0-6.0); HEMATOCRIT 31 % (39-51); HEMOGLOBIN 9.5 g/dL (13.5-17.5); LYMPHOCYTES # (AUTO) 1.6 K/uL (0.8-4.8); LYMPHOCYTES % (AUTO) 24.1 % (20.0-44.0); MEAN CORPUSCULAR HGB CONC 30 g/dl (31.0-36.0); MEAN CORPUSCULAR VOLUME 65 fL (80-96); MONOCYTES # (AUTO) 0.8 K/uL (0.1-1.30); MONOCYTES % (AUTO) 12.1 % (2.0-12.0); NEUTROPHILS # (AUTO) 4.2 K/uL (1.8-8.9); NEUTROPHILS % (AUTO) 61.2 % (43.0-81.0); PLATELET COUNT (AUTO) 434 K/uL (150-450); RED BLOOD CELL COUNT(AUTO) 4.83 MIL/uL (4.5-6.0); WHITE BLOOD COUNT (AUTO) 6.8 K/uL (4.3-11.0)
[2021-01-16 06:23] LABS: BACTERIA,URINE None seen /HPF (None Seen); SQUAMOUS EPITHELIAL CELL,UR Few /HPF (None Seen); WBC,URINE 0-2 /HPF (0-3)
[2021-01-16 06:28] LABS: CALCIUM, SERUM 8.6 mg/dL (8.5-10.1); CARBON DIOXIDE 29 mmol/L (21-32); CHLORIDE 102 mmol/L (98-107); CREATININE 0.6 mg/dL (0.6-1.3); GLUCOSE 77 mg/dL (74-106); SODIUM SERUM 139 mmol/L (136-145); UREA NITROGEN, BLOOD 25 mg/dL (7-18)
[2021-01-16 06:34] LABS: ALANINE AMINOTRANSFERASE 31 U/L (12-78); ALBUMIN 3.8 g/dL (3.4-5.0); ALCOHOL, BLOOD < 3 mg/dL (0-0); ALKALINE PHOSPHATASE 80 U/L (46-116); ASPARTATE AMINOTRANSFERASE 19 U/L (15-37); BILIRUBIN,DIRECT 0.1 mg/dL (0.0-0.2); BILIRUBIN,TOTAL 0.3 mg/dL (0.2-1.0); TOTAL PROTEIN, SERUM 7.8 g/dL (6.4-8.2)
[2021-01-16 06:35] LABS: ACETAMINOPHEN < 0 ug/ml (10-30)
--- NOTE | 2021-01-16 06:50 | NUR ---
CLINICAL AND FACESHEET FAXED TO [facility] FOR VOLUNTARY PSYCH ADMISSION.
--- NOTE | 2021-01-16 10:38 | NUR ---
RE-FAXED CLINICALS TO [facility]
--- NOTE | 2021-01-16 10:50 | NUR ---
Seo Marketing Specialist consult: services account manager consult requested for suicidal ideation, homelessness and substance use. Patient is a 40-year-old, male. SW met with the patient in the waiting room of the emergency department. Patient was alert and oriented x4. Patient presented with a depressed mood and affect. Patient was able to make eye contact. Patient appeared well-groomed. Per chart, patient presented to the emergency department on 01/16/21 with complaints of "hearing voices telling me to take all my pills." Patient requested medical clearance for voluntary psychiatric admission. Patient stated that he is currently homeless and living on the street and has been homeless for the last five years. Patient receives general relief SW asked the patient if he has access to social support and patient stated that he has no support at this time. SW asked patient if he has a history of substance use and patient reported, methamphetamine use from 3 days ago and stated that his frequency of use is "couple of times a week," and daily cannabis use. SW assessed patient's history of mental illness and patient reported Schizoaffective Disorder, Bipolar type. Patient stated that he is currently taking psychiatric medication which includes, Seroquel and Wellbutrin. Patient stated that he has experienced auditory hallucinations where the patient hears voices telling him to overdose on his pills. Patient was not experiencing hallucinations during the interview. Patient reported current suicidal ideation with a plan to overdose. Patient denied homicidal ideation. HÉCTOR offered the patient homeless, substance use and mental health resources. Patient accepted the resources and thanked HÉCTOR. Patient signed the homeless waiver and SW filed waiver in the patient's chart. Patient requested voluntary psychiatric admission to [facility]. HÉCTOR will fax clinicals to [facility]. PLAN: HÉCTOR will fax clinicals to [facility] for voluntary psychiatric admission. RESOURCES: Year-round shelters: [place] [facility] [address] [place] [place] [address] ; [facility] [facility] [address] [place] [address]; [facility] Pdatzob4645 [facility]. [facility] [address] SPA 4 | [facility] Provider: First to Serve Address: [address] [place] [address], [facility] # of Beds: 48 Population Served: [facility] Provider: First to Serve Address: [address] [facility], [address] # of Beds: 73 Population Served: Coed SPA 6 | [facility] Provider: Home at Last Address: [address] [facility], [address] # of Beds: 63 Population Served: Coed SPA 3 | [facility] Provider: [facility] [place] Address: [address] [facility], [address] # of Beds: 75 Population Served: Coed SPA 8 | [facility] Provider: [facility] [place] Address: [address] [facility], [address] # of Beds: 80 Population Served: Benjamind SPA 1 | [facility] Provider: [facility] [place] Address: [id number] [place] [address], [facility] # of Beds: 85 Population Served: Benjamind [facility] 2 | [facility] Provider: [facility] Address: Confidential (please call for location) # of Beds: 52 Population Served: Benjamind [facility] 4 | [facility] Provider: [facility] Address: [address] [address] [facility], [address] # of Beds: 49 Population Served: Brent [facility] Provider: First To Serve Address: [address] [facility], [address] # of Beds: 27 Population Served: Brent Hygiene: [place] [facility]: [address] [address] [place] ; [facility] [address] [facility] ; [facility] 6409 Jj Hickman . Food Resources: [place] Food Pantry at [facility]- [address]290 Panchito Booth [place]; Meet Each Need with Dignity ([facility]) [address] [facility]; [facility] Food Pantry 4390 [facility]; [facility] 8543 [place] [facility] [place]. Mental Health resources provided: [facility] [address] [place] [address] ; [facility] [place] [address] [facility] [address], [place], [place] [phone] ; [facility] [address] [facility] [place], [place] [phone] ; [facility] [address] [place], [place] [phone] Healthcare Clinics: [facility] [address] [facility], [address] [place]. [place] ; [facility] [address] [facility] [address] [place] [address]; [facility] [address] [facility]. [place] [address] [phone]) [phone] Counseling--Outpatient [facility] [address] [facility], [address] [place], [place] [phone] (Specializes in in-depth psychotherapy for emotional distress: anxiety, depression, interpersonal conflicts, life transitions, childhood abuse) PSYCHIATRIC OUTPATIENT SERVICES [facility] Partial Hospitalization and Intensive Outpatient Program (Managed Care and [place] Only) [address] [facility]. [facility] [id number] [facility] Partial Hospitalization and Outpatient Program [address]81 [facility]. [address] [place], [place] [phone] [facility] Partial Hospitalization and Outpatient Program [address] [facility]. [place], [place] [phone] [facility] [facility] [address] [facility]. [address] [place], [place] [phone] [facility] Partial Hospitalization and Outpatient Program [address] [place], [place] [phone] Substance use resources provided included: [facility] Substance Abuse Self-Helpline (SAS) ; CRI -HELP [address]64 [facility]. [place] [address]61 ; [facility] [address] [facility] [address] ; [facility] 400 [facility] [address] ; [facility] 9027 Jj Santillan [facility] [address] ; [facility] 909 [facility] [phone] ; [facility]; Cri[facility]Help [place]; [facility] Rainelle [facility]; Alcoholics Anonymous -SFV
--- NOTE | 2021-01-16 11:09 | NUR ---
Switchboard Inspector note: HÉCTOR faxed clinicals to [facility], , for review.
--- NOTE | 2021-01-16 11:11 | NUR ---
ACCEPTED AT [place]. UNDER DR. GARCIA. CALL RAMSEY FOR REPORT [phone] EXT [phone]
--- NOTE | 2021-01-16 11:20 | NUR ---
S TRANSPORT WITH [facility] TO [facility] ETA 1400.
--- NOTE | 2021-01-16 11:23 | NUR ---
REPORT GIVEN TO NURSE ALMENDAREZ FROM [facility].
[2021-01-16 12:13] LABS: EOSINOPHILS % (MANUAL) 1 % (0-4); LYMPHOCYTES % (MANUAL) 27 % (16-48); MONOCYTES % (MANUAL) 11 % (0-11.0); NEUTROPHILS % (MANUAL) 61 (42-76)
[2021-01-16 14:38] VITALS: BP 132/70
== END ==
LOC: ER 05:50
DX: R45.851 Suicidal ideations (principal); F32.9 Major depressive disorder, single episode, unspecified; F25.9 Schizoaffective disorder, unspecified; Z86.19 Personal history of other infectious and parasitic diseases; Z88.8 Allergy status to other drugs, medicaments and biological substances; Z79.899 Other long term (current) drug therapy; Z20.822 Contact with and (suspected) exposure to COVID-19
CPT/HCPCS: 36415; 80048; 80076; 80143; 80307; 80320; 81001; 85007; 85025; 87426; 99285; C9803; G0480

== ENCOUNTER 2021-02-02 06:12 | Emergency (ER) | payer OTHER ==
[~2021-02-02] VITALS: Ht 175.3 cm; Wt 53.5 kg
--- NOTE | 2021-02-02 06:44 | NUR ---
URINE SPECIMEN COLLECTED AND SENT TO LAB.
[2021-02-02 07:36] LABS: BILIRUBIN,URINE SMALL (NEGATIVE); COLOR,URINE YELLOW (YELLOW); LEUKOCYTE ESTERASE ,URINE Negative (NEGATIVE); NITRITE, URINE Negative (NEGATIVE); PROTEIN,URINE 30 mg/dl (NEGATIVE); UGLUCOSE Negative (NEGATIVE); UROBILINOGEN,URINE 0.2 EU/dL (0.2)
[2021-02-02 07:50] LABS: BACTERIA,URINE Few /HPF (None Seen); RBC,URINE 0-2 /HPF (0-2); SQUAMOUS EPITHELIAL CELL,UR 0-2 /HPF (None Seen); WBC,URINE 0-2 /HPF (0-3)
[2021-02-02 08:06] LABS: HEMOGLOBIN 9.5 g/dL (13.5-17.5); LYMPHOCYTES # (AUTO) 1.2 K/uL (0.8-4.8); MONOCYTES # (AUTO) 0.5 K/uL (0.1-1.30); NEUTROPHILS # (AUTO) 2.6 K/uL (1.8-8.9); WHITE BLOOD COUNT (AUTO) 4.4 K/uL (4.3-11.0)
[2021-02-02 08:09] LABS: BASOPHILS % (AUTO) 1.1 % (0.0-2.0); EOSINOPHILS % (AUTO) 1.5 % (0.0-6.0); HEMATOCRIT 31 % (39-51); LYMPHOCYTES % (AUTO) 26.5 % (20.0-44.0); MEAN CORPUSCULAR HGB CONC 31 g/dl (31.0-36.0); MEAN CORPUSCULAR VOLUME 64 fL (80-96); MONOCYTES % (AUTO) 11.8 % (2.0-12.0); NEUTROPHILS % (AUTO) 59.1 % (43.0-81.0); PLATELET COUNT (AUTO) 576 K/uL (150-450); RED BLOOD CELL COUNT(AUTO) 4.88 MIL/uL (4.5-6.0)
[2021-02-02 08:24] LABS: ALANINE AMINOTRANSFERASE 38 U/L (12-78); ALBUMIN 3.5 g/dL (3.4-5.0); ALKALINE PHOSPHATASE 64 U/L (46-116); BILIRUBIN,DIRECT 0.2 mg/dL (0.0-0.2); BILIRUBIN,TOTAL 0.4 mg/dL (0.2-1.0); CALCIUM, SERUM 8.7 mg/dL (8.5-10.1); CARBON DIOXIDE 29 mmol/L (21-32); CHLORIDE 103 mmol/L (98-107); CREATININE 0.8 mg/dL (0.6-1.3); GLUCOSE 86 mg/dL (74-106); POTASSIUM 3.4 mmol/L (3.5-5.1); SODIUM SERUM 139 mmol/L (136-145); UREA NITROGEN, BLOOD 25 mg/dL (7-18)
--- NOTE | 2021-02-02 08:25 | NUR ---
THE PATIENT BIBS FOR MED CLEARANCE FOR VOL PSYCH, PREFERS [facility] VN, SI "RUN INTO TRAFFIC" DENIES HI. DENIES PAIN. IN ROOM AIR AND DENIES SOB. RESPIRATION REGULAR AND UNLABORED. THE PATIENT IS PROVIDED WITH A BLANKET FOR COMFORT. FOOD/WATER OFFERED. SAFETY MEASURES TAKEN. WILL CONTINUE TO MONITOR THE PATIENT.
[2021-02-02 08:36] LABS: ACETAMINOPHEN < 10 ug/ml (10-30); ALCOHOL, BLOOD < 3 mg/dL (0-0)
[2021-02-02 09:18] LABS: ASPARTATE AMINOTRANSFERASE 30 U/L (15-37)
[2021-02-02 09:36] LABS: LYMPHOCYTES % (MANUAL) 21 % (16-48); MONOCYTES % (MANUAL) 9 % (0-11.0); NEUTROPHILS % (MANUAL) 70 (42-76)
--- NOTE | 2021-02-02 10:17 | NUR ---
Manager Assurance Consultation: Manager Assurance consultation requested for SI and homeless. Patient is a 40 year old male. Per ED physician's notes, patient came to the ED with complaints of wanting to run into traffic. This LEGAL SECRETARY met with the patient in the ED triage room. Patient is alert, awake, receptive to meeting with this LEGAL SECRETARY. Patient was calm and cooperative throughout this interview. Patient reports dx of Schizoaffective Bipolar type, and states he has been off of his medications for about 2 weeks. Patient reports hearing voices, telling him to harm himself by running into traffic. Patient denies visual hallucinations. Patient reports history of psychiatric hospitalizations at [facility], but could not recall the last time he was there. SW asked patient if he would want voluntary hospitalization at [facility] again, and patient expressed agreement. Patient states he has been homeless for nearly 7 years. This LEGAL SECRETARY offered to provide patient with homeless resources, and patient expressed agreement. This LEGAL SECRETARY assessed patients substance use history, and patient stated he uses marijuana on a daily basis, last usage was this morning before coming to the ED. Patient also reported using amphetamines every 2-3 days, last usage was about 3 days ago. Per toxicology report, patient tested positive for these 2 drugs. Patient stated he smokes about 2 cigarettes/day. Patient denied use of alcohol. Patient has [employer] a, and has Clarity as income. PLAN: Fax clinical to [facility]. Provide patient with the homeless resources packet.
--- NOTE | 2021-02-02 10:26 | NUR ---
Structural Steel Ironworker note: This WASTE SALVAGER spoke with ED RN Quinn, who stated that he has already faxed patient's clinicals to [facility]. This WASTE SALVAGER called and spoke with executive meeting manager Maurilio (tel # [phone]), and faxed Maurilio a copy of the patient's face sheet (fax # [phone]).
--- NOTE | 2021-02-02 10:41 | NUR ---
Hospital Clinic Assistant note: This LEAD BUSINESS SYSTEMS ANALYST met with the patient, provided him with the homeless community resource packet which includes list of homeless shelters, places for meals, food pantries, and showers, mental health agencies, medical clinics, substance abuse treatment programs, pharmacies. Patient signed the homeless patient waiver form. Form was filed in patient's ED chart.
--- NOTE | 2021-02-02 11:15 | NUR ---
THE PATIENT RESTING IN ROOM 19. DENIES PAIN. BREATHING EVEN AND UNLABORED. THE PATIENT IS PROVIDED SNACKS AND WATER.
--- NOTE | 2021-02-02 11:45 | NUR ---
PER [facility] IN[facility]KE THE PATIENT WON[facility]T BE ACCEPTED TO [facility] BECAUSE HE IS ON "HIGH RISK" LIST, HOWEVER, THE INTAKE IS REVIEWING THE PATIENT`S CLINICALS FOR PLACEMENT AT OTHER [facility] FACILITIES. THE PATIENT IS MADE AWARE.
--- NOTE | 2021-02-02 13:59 | NUR ---
PER SO CALL INTAKE THE PATIENT`S CLINICALS ARE STILL BEING REVIEWED.
--- NOTE | 2021-02-02 17:16 | NUR ---
PER SO CALL INTAKE THE PATIENT`S CLINICALS ARE STILL BEING REVIEWED.
--- NOTE | 2021-02-02 18:13 | NUR ---
CALLED [facility] INTAKE FOR UPDATE. [facility] AVAIL[facility].
[2021-02-02 19:35] VITALS: BP 124/65
--- NOTE | 2021-02-02 23:26 | NUR ---
PT DENIES SI/HI AT THIS TIME AND WANT TO LEAVE. PT REFUSE TO WAIT TO SPEAK TO ER MD. PT LEFT ER AMBULATORY WITH STEADY GAIT NOTED.
== END 2021-02-02 23:26 | disposition left against medical advice (07) ==
LOC: ER 06:12
DX: R45.851 Suicidal ideations (principal); F32.9 Major depressive disorder, single episode, unspecified; F25.9 Schizoaffective disorder, unspecified; Z86.19 Personal history of other infectious and parasitic diseases; Z79.899 Other long term (current) drug therapy; Z20.822 Contact with and (suspected) exposure to COVID-19; Z53.20 Procedure and treatment not carried out because of patient's decision for unspecified reasons
CPT/HCPCS: 36415; 80048; 80076; 80143; 80307; 80320; 81001; 85007; 85025; 87426; 99285; C9803; G0480

== ENCOUNTER 2021-02-12 06:12 | Emergency (ER) | payer OTHER ==
[~2021-02-12] VITALS: Ht 175.3 cm; Wt 53.5 kg
[2021-02-12] MEDS ORDERED: LIDO30AD10 TP (06:41)
[2021-02-12] MEDS ORDERED: IBUP-1957 PO (06:41)
[2021-02-12] MEDS ORDERED: KETOROLAC TROMETHAMINE INJ 30 MG/ML VIAL ONE (06:46)
[2021-02-12] MEDS: KETOROLAC TROMETHAMINE INJ 60 MG/2 ML VIAL IM ONE (06:48)
[2021-02-12 06:50] VITALS: BP 130/90
--- NOTE | 2021-02-12 06:50 | NUR ---
Patient discharged to home in stable condition. Written and verbal after care instructions given. Patient verbalizes understanding of instruction. RX given
== END 2021-02-12 06:51 | disposition home or self-care (01) ==
LOC: ER 06:14
DX: M25.511 Pain in right shoulder (principal); F25.9 Schizoaffective disorder, unspecified; F17.200 Nicotine dependence, unspecified, uncomplicated; Z86.19 Personal history of other infectious and parasitic diseases; Z88.8 Allergy status to other drugs, medicaments and biological substances; Z59.0 Homelessness; Z79.899 Other long term (current) drug therapy
CPT/HCPCS: 96372; 99283; J1885

== ENCOUNTER 2021-02-12 09:39 | Emergency (ER) | payer OTHER ==
[~2021-02-12] VITALS: Ht 170.2 cm; Wt 70.8 kg
[~2021-02-12 09:39] MED LIST changes: +IBUP-1957 PO; +LIDO30AD10 TP
--- NOTE | 2021-02-12 10:00 | NUR ---
DR ADAMSON AT BEDSIDE FOR EVAL.
--- NOTE | 2021-02-12 10:02 | NUR ---
PT'S INITIAL COMPLAIN COMING TO ED WAS DIZZINESS S/P GETTING TORADOL SHOT EARLIER. WHILE BEING EVALUATED BY DR ADAMSON PATIENT STATES THAT HE WANTS TO GO VOLUNTARY TO A PSYCHIATRIC FACILITY BECAUSE HE DOES NOT FEEL SAFE OUTSIDE AND IS NOW SUICIDAL W. PLAN TO JUMP IN FRONT OF TRAFFIC. COOPERATIVE TO STAFF. STABLE VITALS. WILL CONTINUE TO MONITOR.
--- NOTE | 2021-02-12 10:07 | NUR ---
URINE COLLECTED AND SENT TO LAB
--- NOTE | 2021-02-12 10:25 | NUR ---
PUNCH PRESS SETTER AT BEDSIDE FOR BLOOD DRAW.
[2021-02-12 10:42] LABS: BASOPHILS # (AUTO) 0.1 K/uL (0.0-0.2); BASOPHILS % (AUTO) 0.6 % (0.0-2.0); HEMATOCRIT 28 % (39-51); LYMPHOCYTES # (AUTO) 1.2 K/uL (0.8-4.8); MONOCYTES # (AUTO) 0.8 K/uL (0.1-1.30)
[2021-02-12 10:43] LABS: BILIRUBIN,URINE Negative (NEGATIVE); COLOR,URINE YELLOW (YELLOW); LEUKOCYTE ESTERASE ,URINE Negative (NEGATIVE); NITRITE, URINE Negative (NEGATIVE); PH,URINE 5.5 (5.0-8.0); PROTEIN,URINE 100 mg/dl (NEGATIVE); UGLUCOSE Negative (NEGATIVE); UROBILINOGEN,URINE 0.2 EU/dL (0.2)
[2021-02-12 10:44] LABS: RBC,URINE 0-2 /HPF (0-2); WBC,URINE 0-2 /HPF (0-3)
[2021-02-12 10:45] LABS: EOSINOPHILS % (AUTO) 0.1 % (0.0-6.0); HEMOGLOBIN 8.5 g/dL (13.5-17.5); LYMPHOCYTES % (AUTO) 14.5 % (20.0-44.0); MEAN CORPUSCULAR HGB CONC 30 g/dl (31.0-36.0); MEAN CORPUSCULAR VOLUME 64 fL (80-96); MONOCYTES % (AUTO) 9.1 % (2.0-12.0); NEUTROPHILS # (AUTO) 6.4 K/uL (1.8-8.9); NEUTROPHILS % (AUTO) 75.7 % (43.0-81.0); PLATELET COUNT (AUTO) 311 K/uL (150-450); RED BLOOD CELL COUNT(AUTO) 4.41 MIL/uL (4.5-6.0); WHITE BLOOD COUNT (AUTO) 8.5 K/uL (4.3-11.0)
[2021-02-12 10:45] LABS: BACTERIA,URINE Rare /HPF (None Seen); SQUAMOUS EPITHELIAL CELL,UR Rare /HPF (None Seen)
[2021-02-12 10:48] LABS: CALCIUM, SERUM 8.7 mg/dL (8.5-10.1); CARBON DIOXIDE 29 mmol/L (21-32); CHLORIDE 99 mmol/L (98-107); CREATININE 0.7 mg/dL (0.6-1.3); GLUCOSE 83 mg/dL (74-106); POTASSIUM 4.1 mmol/L (3.5-5.1); SODIUM SERUM 138 mmol/L (136-145); UREA NITROGEN, BLOOD 23 mg/dL (7-18)
[2021-02-12 10:53] LABS: ALANINE AMINOTRANSFERASE 32 U/L (12-78); ALBUMIN 3.5 g/dL (3.4-5.0); ALKALINE PHOSPHATASE 69 U/L (46-116); ASPARTATE AMINOTRANSFERASE 22 U/L (15-37); BILIRUBIN,DIRECT 0.1 mg/dL (0.0-0.2); BILIRUBIN,TOTAL 0.3 mg/dL (0.2-1.0); TOTAL PROTEIN, SERUM 7.5 g/dL (6.4-8.2)
[2021-02-12 10:54] LABS: ACETAMINOPHEN 0 ug/ml (10-30); ALCOHOL, BLOOD < 3 mg/dL (0-0)
--- NOTE | 2021-02-12 11:47 | NUR ---
Plan: HÉCTOR referred pt. to [facility] [[address] [place] [address] FAX:[phone]] for inpatient psychiatric treatment.
[2021-02-12 11:54] LABS: BAND % (MANUAL) 1 % (0.0-5.0); LYMPHOCYTES % (MANUAL) 12 % (16-48); MONOCYTES % (MANUAL) 8 % (0-11.0); NEUTROPHILS % (MANUAL) 79 (42-76)
--- NOTE | 2021-02-12 12:10 | NUR ---
SS Consult: SS Consult requested for SI & Homelessness and drug use. The pt. is a 40- year old male who presents to ED with C/O suicidal ideations for the past day with plan to, "jump in front of a train". Patient stated he has been getting on a bus to avoid acting on this plan. The pt. appears unkempt is A&O X4 and makes good eye contact. Pt. has soft low speech. Pt.'s mood is depressed with flat affect. Pt. denies visual hallucinations and denies SI. Pt.'s states he is experiencing AH telling him to hurt himself. SW offered pt. voluntary admission to a psych facility for treatment and pt. is agreeable. Pt. [facility]. HÉCTOR explored pt.'s mental health Hx. Pt. states he has been diagnosed with Schizoaffective Disorder in the past and is med non-compliant. SW explored pt.'s living situation. Pt. states he has been homeless for a "5 years". SW explored pt.'s drug & ETOH use. Patient stated he uses Meth (2-3 x/week) and Marijuana daily. SW provided addiction resources and pt. accepted. Pt. states he is ambulatory. SW explored pt.'s support system. Pt. states he has no support system. Pt. states he receives food stamps and general relief. Plan: HÉCTOR referred pt. to [facility] for inpatient psychiatric treatment. Pt. signed homeless waiver and it was placed in the chart. HÉCTOR provided pt. with homeless, and mental health resources and he accepted them : Year-round shelters: [place] [facility] [address] [place], [place] [phone] ; [place] [facility] [address] [place] [address]; [facility] [facility] [id number] [facility] [address] Winter Shelters: Adrianne Mueller Provider: [place] [facility] [place] Address: [address] [place], [address] # of Beds: 47 Population Served: [facility] 6 | [facility] Elisabeth Emery Ami Provider: Home at Last Address: [address] [facility], [address] # of Beds: 66 Population Served: [facility] Heike [place] Provider: First to Serve Address: [address] [facility], [address] # of Beds: 56 Population Served: Brent Speedy [place] Provider: SSG/Ms. [facility] House Address: [address] [facility], [address] # of Beds: 49 Population Served: [facility] SPA 8 | [facility] Provider: First to Serve Address: [address] [facility]. [place], [address] # of Beds: 37 Population Served: [facility] Hygiene: [place] [facility]: [address] [facility] ; [place] [facility] [address] [facility] ; [facility] 7279 [facility] . Food Resources: [place] Food Pantry at [facility]- 5700 [facility]; Meet Each Need with Dignity ([facility]) [address] [facility]; [facility] Food Pantry 4318 [facility]; [facility] 8558 [facility]. Mental Health resources provided: [facility] [address] [place], [place] [phone] ; [facility] [address] [facility] [address], [place], [place] [phone] ; Craig Gokul [facility] Mental [facility] [address] [address] ; [facility] [address] [place], [place] [phone] Healthcare Clinics: [facility] 6551 [facility], [address] [place]. [place] ; [facility] [address] [facility] [address] [place] [address]; [facility] [address] [facility] [phone]) [phone] Counseling--Outpatient [facility] [address] [place], [place] [address] (Specializes in in-depth psychotherapy for emotional distress: anxiety, depression, interpersonal conflicts, life transitions, childhood abuse) [facility] [address] [place] [address] (Assist with solving problem marital difficulties, separation & divorce, aging parents, & grief, chronic & terminal illness) [facility] [address] [place] [address] (Deal with loss & grief, anxiety, marital difficulties) Homebound/Mental Health Services [address] [facility] [address] [place] [address] (Provide in-home mental services to people who are incapable of leaving their homes) Organization for Needs of the Elderly Senior Service/Resource Center [address] [place] [address] [facility] [address] [place] [address] PSYCHIATRIC OUTPATIENT SERVICES [facility] Partial Hospitalization and Intensive Outpatient Program (Managed Care and [place] Only)[address] Critical access hospital [phone] [facility] Partial Hospitalization and Outpatient Evjrdnp69019 [facility]. [address] [place], [place] [phone] [facility] [id number] [facility] [address] [place], [place] [phone] [facility] Partial Hospitalization and Outpatient Jdalivv23033 Emelita [place], [phone] Substance Abuse resources provided included: [facility] Substance Abuse Self-Helpline (SASH) ; CRI -HELP [address] [facility] 916t01 ; [facility] Renick [address] [facility] [address] ; [facility] Program [address] [place] [address] ; [facility] [address]. [facility] [phone] ; [facility] 4940 [address] Jacque [facility] [address] ; Gilda [facility] [address] [facility] [phone] ; [facility] Substance Abuse Helpline(SAS)[facility] ; [facility] ; [facility] [place]; [facility]; Cri-Help [place]; I-ADARP Inter [facility] [place]; [facility] [place]; [facility]; [facility]; [facility]'s Renick, Inc[facility] [place]; Alcoholics Anonymous -SFV; Zf-Nswe-Sdarqnj ; Marijuana Anonymous -SFV; Narcotics Anonymous www.na.org;
--- NOTE | 2021-02-12 13:50 | NUR ---
PT ACCEPTED AFTER 230PM TO [facility] :) ACCEPTING MD IS DR SEO AND DR BAKER
--- NOTE | 2021-02-12 13:55 | NUR ---
[facility]
[2021-02-12 14:00] VITALS: BP 132/80
--- NOTE | 2021-02-12 15:35 | NUR ---
REPORT GIVEN TO LAURENCE DANIELLE [facility].
--- NOTE | 2021-02-12 16:07 | NUR ---
REPORT GIVEN TO SCALEHOUSE ATTENDANT. PATIENT A/OX4, BREATHING EVEN AND UNLABORED, AMBULATORY WITH STEADY GAIT. NO DISTRESS NOTED. TRANSFERRED TO [facility].
== END 2021-02-12 16:09 ==
LOC: ER 09:43
DX: R45.851 Suicidal ideations (principal); Z59.0 Homelessness; F25.9 Schizoaffective disorder, unspecified; Z86.19 Personal history of other infectious and parasitic diseases; Z20.822 Contact with and (suspected) exposure to COVID-19
CPT/HCPCS: 36415; 80048; 80076; 80143; 80307; 80320; 81001; 85007; 85025; 87426; 99285; C9803; G0480

== ENCOUNTER 2021-04-29 03:34 | Emergency (ER) | payer OTHER ==
[~2021-04-29] VITALS: Ht 175.3 cm; Wt 63.5 kg
--- NOTE | 2021-04-29 04:02 | NUR ---
covid swab sent to lab
[2021-04-29 04:07] LABS: BILIRUBIN,URINE Negative (NEGATIVE); COLOR,URINE YELLOW (YELLOW); LEUKOCYTE ESTERASE ,URINE Negative (NEGATIVE); NITRITE, URINE Negative (NEGATIVE); PROTEIN,URINE Negative (NEGATIVE); UGLUCOSE Negative (NEGATIVE)
[2021-04-29 04:09] LABS: BASOPHILS # (AUTO) 0.1 K/uL (0.0-0.2); BASOPHILS % (AUTO) 1.5 % (0.0-2.0); HEMATOCRIT 29 % (39-51); HEMOGLOBIN 8.7 g/dL (13.5-17.5); LYMPHOCYTES # (AUTO) 1.8 K/uL (0.8-4.8); LYMPHOCYTES % (AUTO) 28.6 % (20.0-44.0); MEAN CORPUSCULAR HGB CONC 30 g/dl (31.0-36.0); MEAN CORPUSCULAR VOLUME 67 fL (80-96); MONOCYTES # (AUTO) 0.7 K/uL (0.1-1.30); MONOCYTES % (AUTO) 11.6 % (2.0-12.0); NEUTROPHILS # (AUTO) 3.4 K/uL (1.8-8.9); NEUTROPHILS % (AUTO) 55.3 % (43.0-81.0); PLATELET COUNT (AUTO) 589 K/uL (150-450); RED BLOOD CELL COUNT(AUTO) 4.35 MIL/uL (4.5-6.0); WHITE BLOOD COUNT (AUTO) 6.2 K/uL (4.3-11.0)
[2021-04-29 04:30] LABS: ALANINE AMINOTRANSFERASE 40 U/L (12-78); ALBUMIN 3.7 g/dL (3.4-5.0); ALKALINE PHOSPHATASE 74 U/L (46-116); ASPARTATE AMINOTRANSFERASE 28 U/L (15-37); BILIRUBIN,DIRECT 0.1 mg/dL (0.0-0.2); BILIRUBIN,TOTAL 0.4 mg/dL (0.2-1.0); CARBON DIOXIDE 30 mmol/L (21-32); CHLORIDE 100 mmol/L (98-107); CREATININE 0.7 mg/dL (0.6-1.3); GLUCOSE 107 mg/dL (74-106); POTASSIUM 4.2 mmol/L (3.5-5.1); SODIUM SERUM 135 mmol/L (136-145); TOTAL PROTEIN, SERUM 7.5 g/dL (6.4-8.2); UREA NITROGEN, BLOOD 15 mg/dL (7-18)
[2021-04-29 04:32] LABS: ACETAMINOPHEN 0 ug/ml (10-30); ALCOHOL, BLOOD < 3 mg/dL (0-0)
[2021-04-29 04:41] LABS: LYMPHOCYTES % (MANUAL) 33 % (16-48); MONOCYTES % (MANUAL) 7 % (0-11.0); NEUTROPHILS % (MANUAL) 60 (42-76)
--- NOTE | 2021-04-29 06:36 | NUR ---
FAXED FACE SHEET AND CLINICALS TO [facility]
--- NOTE | 2021-04-29 10:12 | NUR ---
CALLED WILL INTAKE FOR UPDATE.
[2021-04-29 15:26] VITALS: BP 131/81
--- NOTE | 2021-04-29 15:26 | NUR ---
Patient eloped from facility. Dr Xiong notified.
== END 2021-04-29 15:26 | disposition left against medical advice (07) ==
LOC: ER 03:40
DX: R45.851 Suicidal ideations (principal); F19.10 Other psychoactive substance abuse, uncomplicated; Z59.00 Homelessness unspecified; Z20.822 Contact with and (suspected) exposure to COVID-19; F25.9 Schizoaffective disorder, unspecified; Z86.19 Personal history of other infectious and parasitic diseases; Z88.8 Allergy status to other drugs, medicaments and biological substances; D64.9 Anemia, unspecified; Z53.29 Procedure and treatment not carried out because of patient's decision for other reasons
CPT/HCPCS: 36415; 80048; 80076; 80143; 80307; 80320; 81003; 85007; 85025; 87426; 99285; C9803; G0480

== ENCOUNTER 2021-05-02 08:06 | Emergency (ER) | payer OTHER ==
[~2021-05-02] VITALS: Ht 175.3 cm; Wt 63.5 kg
--- NOTE | 2021-05-02 08:06 | NUR ---
PT BIB SELF C/O SI "I WANT TO OD ON DRUGS" REQUESTING VOLUNTARY PSYCH ADMISSION TO [facility]. PT IS AAOX4, NOT IN RESPIRATORY DISTRESS, V/S STABLE, KEPT RESTED AND COMFORTABLE. WILL CONTINUE TO MONITOR. SITTER AT BEDSIDE.
--- NOTE | 2021-05-02 08:24 | NUR ---
URINE SPECIMEN COLLECTED AND SENT TO LAB.
--- NOTE | 2021-05-02 08:35 | NUR ---
ER PHLEB AT BEDSIDE FOR BLOOD DRAW.
[2021-05-02 08:42] LABS: BILIRUBIN,URINE Negative (NEGATIVE); COLOR,URINE DARK YELLOW (YELLOW); LEUKOCYTE ESTERASE ,URINE Negative (NEGATIVE); NITRITE, URINE Negative (NEGATIVE); PH,URINE 6.5 (5.0-8.0); PROTEIN,URINE 30 mg/dl (NEGATIVE); UGLUCOSE Negative (NEGATIVE); UROBILINOGEN,URINE 0.2 EU/dL (0.2)
[2021-05-02 08:42] LABS: HEMOGLOBIN 8.4 g/dL (13.5-17.5)
[2021-05-02 08:55] LABS: WHITE BLOOD COUNT (AUTO) 6.7 K/uL (4.3-11.0)
[2021-05-02 08:57] LABS: BASOPHILS # (AUTO) 0.1 K/uL (0.0-0.2); BASOPHILS % (AUTO) 1.2 % (0.0-2.0); CALCIUM, SERUM 8.6 mg/dL (8.5-10.1); CARBON DIOXIDE 26 mmol/L (21-32); CHLORIDE 102 mmol/L (98-107); CREATININE 0.8 mg/dL (0.6-1.3); EOSINOPHILS % (AUTO) 1.6 % (0.0-6.0); GLUCOSE 74 mg/dL (74-106); HEMATOCRIT 29 % (39-51); LYMPHOCYTES # (AUTO) 1.7 K/uL (0.8-4.8); LYMPHOCYTES % (AUTO) 25.3 % (20.0-44.0); MEAN CORPUSCULAR HGB CONC 29 g/dl (31.0-36.0); MEAN CORPUSCULAR VOLUME 67 fL (80-96); MONOCYTES # (AUTO) 0.7 K/uL (0.1-1.30); MONOCYTES % (AUTO) 10.2 % (2.0-12.0); NEUTROPHILS # (AUTO) 4.1 K/uL (1.8-8.9); NEUTROPHILS % (AUTO) 61.7 % (43.0-81.0); PLATELET COUNT (AUTO) 622 K/uL (150-450); POTASSIUM 4.8 mmol/L (3.5-5.1); RED BLOOD CELL COUNT(AUTO) 4.23 MIL/uL (4.5-6.0); SODIUM SERUM 137 mmol/L (136-145); UREA NITROGEN, BLOOD 20 mg/dL (7-18)
[2021-05-02 09:04] LABS: ALANINE AMINOTRANSFERASE 38 U/L (12-78); ALBUMIN 3.9 g/dL (3.4-5.0); ALCOHOL, BLOOD < 3 mg/dL (0-0); ALKALINE PHOSPHATASE 69 U/L (46-116); ASPARTATE AMINOTRANSFERASE 29 U/L (15-37); BILIRUBIN,DIRECT 0.1 mg/dL (0.0-0.2); BILIRUBIN,TOTAL 0.4 mg/dL (0.2-1.0); TOTAL PROTEIN, SERUM 7.4 g/dL (6.4-8.2)
[2021-05-02 09:32] LABS: BACTERIA,URINE Rare /HPF (None Seen); SQUAMOUS EPITHELIAL CELL,UR Few /HPF (None Seen); WBC,URINE NONE SEEN /HPF (0-3)
--- NOTE | 2021-05-02 10:14 | NUR ---
FAXED CLINICALS TO [facility].
[2021-05-02 12:10] LABS: LYMPHOCYTES % (MANUAL) 22 % (16-48); MONOCYTES % (MANUAL) 4 % (0-11.0); NEUTROPHILS % (MANUAL) 74 (42-76)
--- NOTE | 2021-05-02 14:49 | NUR ---
SO IZZY SANCHEZ CALLED AND WAS NOTIFIED THAT THE PT WAS ACCPETED AFTER 1600 NUMBER FOR REPORT- [phone] UNIT 2
--- NOTE | 2021-05-02 14:52 | NUR ---
CALLED [facility] FOR [facility]LS TRANSPORT. ETA 1638
--- NOTE | 2021-05-02 16:42 | NUR ---
REPORT GIVEN TO EMS FOR PT TRANSFER TO [facility].
[2021-05-02 16:43] VITALS: BP 129/73
== END 2021-05-02 16:44 ==
LOC: ER 08:21
DX: R45.851 Suicidal ideations (principal); F19.10 Other psychoactive substance abuse, uncomplicated; Z20.822 Contact with and (suspected) exposure to COVID-19; F25.9 Schizoaffective disorder, unspecified; Z59.00 Homelessness unspecified; D64.9 Anemia, unspecified; Z86.19 Personal history of other infectious and parasitic diseases; Z88.8 Allergy status to other drugs, medicaments and biological substances
CPT/HCPCS: 36415; 80048; 80076; 80143; 80307; 80320; 81001; 85007; 85025; 87426; 99285; C9803; G0480

== ENCOUNTER 2021-05-23 02:14 | Emergency (ER) | payer OTHER ==
[~2021-05-23] VITALS: Ht 175.3 cm; Wt 54.4 kg
--- NOTE | 2021-05-23 03:47 | NUR ---
BIBS C/O HAVING S/I WITH PLAN TO "PULL OUT A FAKE GUN ON A SEAM STAY STITCHER". PATIENT IS SEEKING VOLUNTARY ADMISSION TO [facility]. PATIENT IS ALERT AND ORIENTED X3. AMBULATORY WITH NON LABORED BREATHING.
[2021-05-23 04:25] LABS: BASOPHILS # (AUTO) 0.1 K/uL (0.0-0.2); BASOPHILS % (AUTO) 1.2 % (0.0-2.0); EOSINOPHILS % (AUTO) 10.2 % (0.0-6.0); HEMATOCRIT 33 % (39-51); LYMPHOCYTES # (AUTO) 1.9 K/uL (0.8-4.8); LYMPHOCYTES % (AUTO) 31.1 % (20.0-44.0); MEAN CORPUSCULAR HGB CONC 30 g/dl (31.0-36.0); MEAN CORPUSCULAR VOLUME 66 fL (80-96); MONOCYTES # (AUTO) 0.7 K/uL (0.1-1.30); MONOCYTES % (AUTO) 12.3 % (2.0-12.0); NEUTROPHILS # (AUTO) 2.7 K/uL (1.8-8.9); NEUTROPHILS % (AUTO) 45.2 % (43.0-81.0); PLATELET COUNT (AUTO) 693 K/uL (150-450); RED BLOOD CELL COUNT(AUTO) 4.99 MIL/uL (4.5-6.0); WHITE BLOOD COUNT (AUTO) 6.1 K/uL (4.3-11.0)
[2021-05-23 04:44] LABS: ALANINE AMINOTRANSFERASE 49 U/L (12-78); ALCOHOL, BLOOD < 3 mg/dL (0-0); ALKALINE PHOSPHATASE 89 U/L (46-116); ASPARTATE AMINOTRANSFERASE 31 U/L (15-37); BILIRUBIN,DIRECT 0.1 mg/dL (0.0-0.2); BILIRUBIN,TOTAL 0.3 mg/dL (0.2-1.0); CARBON DIOXIDE 28 mmol/L (21-32); CHLORIDE 101 mmol/L (98-107); CREATININE 0.9 mg/dL (0.6-1.3); GLUCOSE 91 mg/dL (74-106); POTASSIUM 4.1 mmol/L (3.5-5.1); SODIUM SERUM 138 mmol/L (136-145); TOTAL PROTEIN, SERUM 8.2 g/dL (6.4-8.2); UREA NITROGEN, BLOOD 23 mg/dL (7-18)
[2021-05-23 04:46] LABS: BILIRUBIN,URINE NEGATIVE (NEGATIVE); COLOR,URINE YELLOW (YELLOW); LEUKOCYTE ESTERASE ,URINE NEGATIVE (NEGATIVE); NITRITE, URINE NEGATIVE (NEGATIVE); PROTEIN,URINE NEGATIVE (NEGATIVE); UGLUCOSE NEGATIVE (NEGATIVE); UROBILINOGEN,URINE 0.2 EU/dL (0.2)
[2021-05-23 04:53] LABS: ACETAMINOPHEN 0 ug/ml (10-30)
--- NOTE | 2021-05-23 06:30 | NUR ---
FACESHEET AND CLINICALS FAXED TO [facility].
--- NOTE | 2021-05-23 07:12 | NUR ---
PT ASSESSED ON BED AWAKE AND ALERT, NOT IN RESPIRATORY DISTRESS, V/S STABLE, KEPT RESTED AND COMFORTABLE. AWAITING [facility] INTAKE FOR UPDATE. WILL CONTINUE TO MONITOR.
[2021-05-23 08:22] LABS: EOSINOPHILS % (MANUAL) 10 % (0-4); LYMPHOCYTES % (MANUAL) 41 % (16-48); MONOCYTES % (MANUAL) 7 % (0-11.0); NEUTROPHILS % (MANUAL) 42 (42-76)
--- NOTE | 2021-05-23 12:35 | NUR ---
accepted at [facility]. #[phone] ext [phone] accepting: dr james send after 1600
--- NOTE | 2021-05-23 12:43 | NUR ---
CALLED [facility] AND SET UP BLS TRANSPORT FOR PT. ETA 1608
[2021-05-23 13:38] VITALS: BP 119/62
--- NOTE | 2021-05-23 15:31 | NUR ---
report given to Roscoe DANIELLE, will call once patient leaving the ER ext [phone].
--- NOTE | 2021-05-23 16:00 | NUR ---
Patient eloped from facility. ER MD notified.
--- NOTE | 2021-05-23 17:15 | NUR ---
Dimitris ruelas in [facility] - 05/23/21 at 1725 by SOHAM REPORT GIVEN TO AMBULANCE STAFF
== END 2021-05-23 16:00 | disposition left against medical advice (07) ==
LOC: ER 02:40
DX: R45.851 Suicidal ideations (principal); D64.9 Anemia, unspecified; Z20.822 Contact with and (suspected) exposure to COVID-19; Z53.29 Procedure and treatment not carried out because of patient's decision for other reasons; Z59.01 Sheltered homelessness; F25.9 Schizoaffective disorder, unspecified; Z86.19 Personal history of other infectious and parasitic diseases; Z88.8 Allergy status to other drugs, medicaments and biological substances; Z79.899 Other long term (current) drug therapy; D75.839 Thrombocytosis, unspecified
CPT/HCPCS: 36415; 80048; 80076; 80143; 80307; 80320; 81003; 85007; 85025; 87426; 99285; C9803; G0480

== ENCOUNTER 2021-07-04 21:36 | Emergency (ER) | payer OTHER ==
[~2021-07-04] VITALS: Ht 175.3 cm; Wt 62.1 kg
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
[2021-07-04 22:15] LABS: BASOPHILS # (AUTO) 0.2 K/uL (0.0-0.2); BASOPHILS % (AUTO) 2.5 % (0.0-2.0); EOSINOPHILS % (AUTO) 1.9 % (0.0-6.0); HEMATOCRIT 27 % (39-51); HEMOGLOBIN 8.2 g/dL (13.5-17.5); LYMPHOCYTES % (AUTO) 30.3 % (20.0-44.0); MEAN CORPUSCULAR HGB CONC 30 g/dl (31.0-36.0); MEAN CORPUSCULAR VOLUME 63 fL (80-96); MONOCYTES # (AUTO) 0.7 K/uL (0.1-1.30); MONOCYTES % (AUTO) 10.3 % (2.0-12.0); NEUTROPHILS # (AUTO) 3.7 K/uL (1.8-8.9); PLATELET COUNT (AUTO) 542 K/uL (150-450); RED BLOOD CELL COUNT(AUTO) 4.29 MIL/uL (4.5-6.0); WHITE BLOOD COUNT (AUTO) 6.7 K/uL (4.3-11.0)
--- NOTE | 2021-07-04 22:25 | NUR ---
COVID ANTIGEN SWAB COLLECTED AND SENT TO LAB
[2021-07-04 22:34] LABS: CALCIUM, SERUM 8.9 mg/dL (8.5-10.1); CARBON DIOXIDE 27 mmol/L (21-32); CHLORIDE 100 mmol/L (98-107); CREATININE 0.8 mg/dL (0.6-1.3); GLUCOSE 102 mg/dL (74-106); POTASSIUM 3.5 mmol/L (3.5-5.1); SODIUM SERUM 136 mmol/L (136-145); UREA NITROGEN, BLOOD 23 mg/dL (7-18)
[2021-07-04 22:41] LABS: ALANINE AMINOTRANSFERASE 26 U/L (12-78); ALBUMIN 3.6 g/dL (3.4-5.0); ALCOHOL, BLOOD < 3 mg/dL (0-0); ALKALINE PHOSPHATASE 72 U/L (46-116); ASPARTATE AMINOTRANSFERASE 28 U/L (15-37); BILIRUBIN,DIRECT 0.2 mg/dL (0.0-0.2); BILIRUBIN,TOTAL 0.5 mg/dL (0.2-1.0); TOTAL PROTEIN, SERUM 7.5 g/dL (6.4-8.2)
[2021-07-04 22:55] LABS: ACETAMINOPHEN < 2 ug/ml (10-30)
[2021-07-05 00:52] LABS: BILIRUBIN,URINE NEGATIVE (NEGATIVE); COLOR,URINE YELLOW (YELLOW); LEUKOCYTE ESTERASE ,URINE NEGATIVE (NEGATIVE); NITRITE, URINE NEGATIVE (NEGATIVE); PROTEIN,URINE TRACE mg/dl (NEGATIVE); UGLUCOSE NEGATIVE (NEGATIVE); UROBILINOGEN,URINE 0.2 EU/dL (0.2)
[2021-07-05 00:59] LABS: BACTERIA,URINE Few /HPF (None Seen); MUCUS,URINE Few /LPF (None Seen); RBC,URINE 21-50 /HPF (0-2); SQUAMOUS EPITHELIAL CELL,UR Few /HPF (None Seen)
[2021-07-05 01:47] LABS: EOSINOPHILS % (MANUAL) 1 % (0-4); LYMPHOCYTES % (MANUAL) 27 % (16-48); MONOCYTES % (MANUAL) 20 % (0-11.0); NEUTROPHILS % (MANUAL) 52 (42-76)
--- NOTE | 2021-07-05 04:54 | NUR ---
CLINICALS FAX TO [facility]
--- NOTE | 2021-07-05 06:47 | NUR ---
PT WILL BE REFERRED TO [facility].
--- NOTE | 2021-07-05 07:59 | NUR ---
CALLED [facility] STILL AWAITING ACCEPTANCE PER TRISH
--- NOTE | 2021-07-05 12:45 | NUR ---
CALLED WILL INTAKE AGAIN PER SUSAN THEY SHOULD HAVE FEED BACK BY 1400.
--- NOTE | 2021-07-05 16:11 | NUR ---
PT ACCEPTED TO [facility] [place] UNDER DR. DANIELLE CALL [phone] X [phone] FOR REPORT GOING TO P6
--- NOTE | 2021-07-05 16:12 | NUR ---
AFTER CHANGE OF SHIFT
[2021-07-05 17:30] VITALS: BP 120/64
--- NOTE | 2021-07-05 18:22 | NUR ---
ATTEMPTED TO GIVE REPORT, [facility] SAID THAT THERE ARE 4 MORE PATIENTS IN THEIR ER WAITING FOR A BED, THEY'LL CALL US WHEN A BED IS READY
--- NOTE | 2021-07-05 19:55 | NUR ---
REPORT GIVEN TO JARET AT [facility] AND ERASTO MAHONEY AT BE D SIDE
--- NOTE | 2021-07-05 20:09 | NUR ---
PT WAS TRANSFERRED TO [facility] IN STABLE CONDITION
== END 2021-07-05 20:09 ==
LOC: ER 21:38
DX: R45.851 Suicidal ideations (principal); F23 Brief psychotic disorder; F15.10 Other stimulant abuse, uncomplicated; F12.10 Cannabis abuse, uncomplicated; Z20.822 Contact with and (suspected) exposure to COVID-19; F25.9 Schizoaffective disorder, unspecified; D64.9 Anemia, unspecified; F17.200 Nicotine dependence, unspecified, uncomplicated; Z88.8 Allergy status to other drugs, medicaments and biological substances; Z59.00 Homelessness unspecified; Z79.899 Other long term (current) drug therapy
CPT/HCPCS: 36415; 80048; 80076; 80143; 80307; 80320; 81001; 85007; 85025; 87426; 99285; C9803; G0480

== ENCOUNTER 2021-07-14 16:49 | Emergency (ER) | payer OTHER ==
[~2021-07-14] VITALS: Ht 175.3 cm; Wt 59.0 kg
[2021-07-14 17:24] VITALS: BP 114/68
--- NOTE | 2021-07-14 17:24 | NUR ---
No obvious distress. Speech Clear/understandable. Deniea ANY airway compromise Patient discharged to home in stable condition. Written and verbal after care instructions given. Patient verbalizes understanding of instruction.
== END 2021-07-14 17:24 | disposition home or self-care (01) ==
LOC: ER 16:50
DX: K22.2 Esophageal obstruction (principal); D64.9 Anemia, unspecified; F25.9 Schizoaffective disorder, unspecified; F17.200 Nicotine dependence, unspecified, uncomplicated; F31.9 Bipolar disorder, unspecified; Z88.8 Allergy status to other drugs, medicaments and biological substances; Z59.00 Homelessness unspecified; Z79.899 Other long term (current) drug therapy

== ENCOUNTER 2021-07-19 16:14 | Emergency (ER) | payer OTHER ==
[~2021-07-19] VITALS: Ht 170.2 cm; Wt 63.0 kg
--- NOTE | 2021-07-19 16:37 | NUR ---
CALLED POISON CONTROL JORDAN. NEED 12 HOURS OBSERVATION DO LABS INCLUDE TYLENOL & ASA LEVELS EKG Q4 LOOK FOR DELAYED QT ELONGATION. OBSERVE FOR SEDATION AND POSSIBLE SEIZURES.
--- NOTE | 2021-07-19 16:40 | NUR ---
UNABLE TO PROVIDE URINE AT THIS TIME, WILL TRY AGAIN LATER
--- NOTE | 2021-07-19 16:51 | NUR ---
URINE COLLECTED AND SENT TO LAB
--- NOTE | 2021-07-19 16:55 | NUR ---
FAST FOOD SHIFT SUPERVISOR AT BEDSIDE FOR BLOOD DRAW
[2021-07-19 17:18] LABS: BASOPHILS # (AUTO) 0.1 K/uL (0.0-0.2); BASOPHILS % (AUTO) 1.8 % (0.0-2.0); EOSINOPHILS % (AUTO) 4.6 % (0.0-6.0); HEMATOCRIT 24 % (39-51); HEMOGLOBIN 7.6 g/dL (13.5-17.5); LYMPHOCYTES # (AUTO) 1.7 K/uL (0.8-4.8); LYMPHOCYTES % (AUTO) 31.4 % (20.0-44.0); MEAN CORPUSCULAR HGB CONC 31 g/dl (31.0-36.0); MEAN CORPUSCULAR VOLUME 63 fL (80-96); MONOCYTES # (AUTO) 0.5 K/uL (0.1-1.30); MONOCYTES % (AUTO) 10.2 % (2.0-12.0); NEUTROPHILS # (AUTO) 2.8 K/uL (1.8-8.9); PLATELET COUNT (AUTO) 434 K/uL (150-450); RED BLOOD CELL COUNT(AUTO) 3.87 MIL/uL (4.5-6.0); WHITE BLOOD COUNT (AUTO) 5.4 K/uL (4.3-11.0)
--- NOTE | 2021-07-19 17:26 | NUR ---
SNACKS ARE PROVIDED, TOLERATED WELL
[2021-07-19 17:29] LABS: BILIRUBIN,URINE NEGATIVE (NEGATIVE); COLOR,URINE YELLOW (YELLOW); LEUKOCYTE ESTERASE ,URINE NEGATIVE (NEGATIVE); NITRITE, URINE NEGATIVE (NEGATIVE); PROTEIN,URINE NEGATIVE (NEGATIVE); UGLUCOSE NEGATIVE (NEGATIVE); UROBILINOGEN,URINE 0.2 EU/dL (0.2)
[2021-07-19 17:39] LABS: EOSINOPHILS % (MANUAL) 5 % (0-4); LYMPHOCYTES % (MANUAL) 31 % (16-48); MONOCYTES % (MANUAL) 10 % (0-11.0); NEUTROPHILS % (MANUAL) 54 (42-76)
--- NOTE | 2021-07-19 18:13 | NUR ---
COVID SWAB DONE AND SENT TO LAB
[2021-07-19 18:18] LABS: ALANINE AMINOTRANSFERASE 27 U/L (12-78); ALBUMIN 3.5 g/dL (3.4-5.0); ALKALINE PHOSPHATASE 69 U/L (46-116); ASPARTATE AMINOTRANSFERASE 23 U/L (15-37); BILIRUBIN,DIRECT 0.1 mg/dL (0.0-0.2); BILIRUBIN,TOTAL 0.4 mg/dL (0.2-1.0); CALCIUM, SERUM 8.7 mg/dL (8.5-10.1); CARBON DIOXIDE 22 mmol/L (21-32); CHLORIDE 100 mmol/L (98-107); CREATININE 0.7 mg/dL (0.6-1.3); GLUCOSE 84 mg/dL (74-106); POTASSIUM 4.3 mmol/L (3.5-5.1); SODIUM SERUM 134 mmol/L (136-145); UREA NITROGEN, BLOOD 27 mg/dL (7-18)
[2021-07-19 18:20] LABS: ACETAMINOPHEN 0 ug/ml (10-30); ALCOHOL, BLOOD < 3 mg/dL (0-0)
--- NOTE | 2021-07-19 20:25 | NUR ---
PT SLEEPING AT THIS TIME. ARROUSABLE TO NAME & TOUCH. VSS. ALL NEEDS MET AT THIS TIME.
--- NOTE | 2021-07-19 22:00 | NUR ---
Dimitris ruelas in [facility] - 07/19/21 at 2203 by CRYSTAL RAMIN VELASQUEZ PHARMACISTISAC
--- NOTE | 2021-07-19 22:02 | NUR ---
POISON CONTROL PHARMACIST, ISAC CALLED AND ASKED FOR LAB RESULTS
--- NOTE | 2021-07-20 05:53 | NUR ---
REC'D A CALL FROM ANDRA (CRISIS TEAM). SHE WILL BE HERE TO EVALUATE THE PT,
--- NOTE | 2021-07-20 06:53 | NUR ---
ANDRA CRISIS CERTIFIED CONTROL SYSTEMS TECHNICIAN AT BEDSIDE FOR EVAL.
--- NOTE | 2021-07-20 12:42 | NUR ---
SW AT BEDSIDE
--- NOTE | 2021-07-20 12:47 | NUR ---
Pt. stated that he is no longer suicidal and wants to leave. SW provided pt. with TAP card and additional resources upon pt.'s request.
--- NOTE | 2021-07-20 13:19 | NUR ---
Patient discharged to home in stable condition. Written and verbal after care instructions given. Patient verbalizes understanding of instruction. Patient was given additional resources regarding mental health clinics.
[2021-07-20 13:29] VITALS: BP 123/66
== END 2021-07-20 13:29 | disposition home or self-care (01) ==
LOC: ER 16:16
DX: T43.222A Poisoning by selective serotonin reuptake inhibitors, intentional self-harm, initial encounter (principal); T43.592A Poisoning by other antipsychotics and neuroleptics, intentional self-harm, initial encounter; Y92.89 Other specified places as the place of occurrence of the external cause; F25.0 Schizoaffective disorder, bipolar type; Z59.01 Sheltered homelessness; Z88.8 Allergy status to other drugs, medicaments and biological substances; D50.9 Iron deficiency anemia, unspecified; Z53.29 Procedure and treatment not carried out because of patient's decision for other reasons; Z20.822 Contact with and (suspected) exposure to COVID-19; Z79.899 Other long term (current) drug therapy
CPT/HCPCS: 36415; 80048; 80076; 80143; 80307; 80320; 81003; 85007; 85025; 87426; 93005 ×2; 99285; C9803; G0480

== ENCOUNTER 2021-08-02 19:31 | Emergency (ER) | payer OTHER ==
[~2021-08-02] VITALS: Ht 175.3 cm; Wt 54.4 kg
--- NOTE | 2021-08-02 21:24 | NUR ---
PT BIBS C/O HEARING VOICES TELLING HIM TO HARM HIMSELF. PT VOLUNTARY ADMIT TO PSYCH
[2021-08-02 21:56] LABS: BASOPHILS # (AUTO) 0.1 K/uL (0.0-0.2); BASOPHILS % (AUTO) 1.3 % (0.0-2.0); EOSINOPHILS % (AUTO) 3.1 % (0.0-6.0); HEMATOCRIT 30 % (39-51); LYMPHOCYTES # (AUTO) 1.8 K/uL (0.8-4.8); LYMPHOCYTES % (AUTO) 33.5 % (20.0-44.0); MEAN CORPUSCULAR HGB CONC 30 g/dl (31.0-36.0); MEAN CORPUSCULAR VOLUME 63 fL (80-96); MONOCYTES # (AUTO) 0.5 K/uL (0.1-1.30); MONOCYTES % (AUTO) 9.6 % (2.0-12.0); NEUTROPHILS # (AUTO) 2.8 K/uL (1.8-8.9); NEUTROPHILS % (AUTO) 52.5 % (43.0-81.0); PLATELET COUNT (AUTO) 461 K/uL (150-450); RED BLOOD CELL COUNT(AUTO) 4.71 MIL/uL (4.5-6.0); WHITE BLOOD COUNT (AUTO) 5.2 K/uL (4.3-11.0)
[2021-08-02 22:04] LABS: BILIRUBIN,URINE NEGATIVE (NEGATIVE); COLOR,URINE YELLOW (YELLOW); LEUKOCYTE ESTERASE ,URINE NEGATIVE (NEGATIVE); NITRITE, URINE NEGATIVE (NEGATIVE); PROTEIN,URINE TRACE mg/dl (NEGATIVE); UGLUCOSE NEGATIVE (NEGATIVE); UROBILINOGEN,URINE 0.2 EU/dL (0.2)
[2021-08-02 22:07] LABS: BACTERIA,URINE None seen /HPF (None Seen); RBC,URINE 0-2 /HPF (0-2); SPERM,URINE Many /HPF (None Seen); SQUAMOUS EPITHELIAL CELL,UR 0-2 /HPF (None Seen); WBC,URINE 0-2 /HPF (0-3)
[2021-08-02 22:25] LABS: ALANINE AMINOTRANSFERASE 35 U/L (12-78); ALBUMIN 3.7 g/dL (3.4-5.0); ALKALINE PHOSPHATASE 75 U/L (46-116); ASPARTATE AMINOTRANSFERASE 35 U/L (15-37); BILIRUBIN,DIRECT 0.1 mg/dL (0.0-0.2); BILIRUBIN,TOTAL 0.4 mg/dL (0.2-1.0); CALCIUM, SERUM 9.2 mg/dL (8.5-10.1); CARBON DIOXIDE 27 mmol/L (21-32); CHLORIDE 97 mmol/L (98-107); CREATININE 0.6 mg/dL (0.6-1.3); GLUCOSE 74 mg/dL (74-106); POTASSIUM 3.9 mmol/L (3.5-5.1); SODIUM SERUM 132 mmol/L (136-145); TOTAL PROTEIN, SERUM 7.7 g/dL (6.4-8.2); UREA NITROGEN, BLOOD 17 mg/dL (7-18)
[2021-08-02 22:33] LABS: ACETAMINOPHEN < 2 ug/ml (10-30); ALCOHOL, BLOOD < 3 mg/dL (0-0)
[2021-08-03 01:21] LABS: EOSINOPHILS % (MANUAL) 4 % (0-4); LYMPHOCYTES % (MANUAL) 34 % (16-48); METAMYELOCYTES % 1 % (0-0); MONOCYTES % (MANUAL) 8 % (0-11.0); NEUTROPHILS % (MANUAL) 53 (42-76)
--- NOTE | 2021-08-03 01:35 | NUR ---
FACESHEET AND CLINICALS FAXED TO [facility].
--- NOTE | 2021-08-03 05:38 | NUR ---
PT SLEPT WELL WITH NO COMPLAINTS. PT IN NO ACUTE DISTRESS AT THIS TIME. CONTINUED SAFETY 1:1 SITTER MEASURES
--- NOTE | 2021-08-03 06:10 | NUR ---
ADLS DONE. PT COMPLIANT WITH CARE. PT AMBULATORY TO RESTROOM WITH STEADY GAIT & CONTINENT. ALL NEEDS MET AT THIS TIME.
--- NOTE | 2021-08-03 07:15 | NUR ---
PT ACCEPTED TO [facility] BY DR FELICIANO. # FOR REPORT [phone].
--- NOTE | 2021-08-03 07:16 | NUR ---
[facility] ETA 30-45 MINUTES.
[2021-08-03 07:41] VITALS: BP 139/97
--- NOTE | 2021-08-03 08:00 | NUR ---
ROOM 608B Addendum: 08/03/21 at 0802 by [facility]
--- NOTE | 2021-08-03 08:03 | NUR ---
REPORT GIVEN TO NURSE LAURENT FROM [facility]
--- NOTE | 2021-08-03 08:10 | NUR ---
PICKED UP BY TRANSPORT IN STABLE CONDITION
== END 2021-08-03 08:38 ==
LOC: ER 19:35
DX: R45.851 Suicidal ideations (principal); F15.10 Other stimulant abuse, uncomplicated; Z20.822 Contact with and (suspected) exposure to COVID-19; Z59.01 Sheltered homelessness; F25.0 Schizoaffective disorder, bipolar type; Z86.19 Personal history of other infectious and parasitic diseases; Z79.899 Other long term (current) drug therapy; R03.0 Elevated blood-pressure reading, without diagnosis of hypertension
CPT/HCPCS: 36415; 80048; 80076; 80143; 80307; 80320; 81001; 85007; 85025; 87426; 99285; C9803; G0480

== ENCOUNTER 2021-09-10 14:41 | Emergency (ER) | payer OTHER ==
[~2021-09-10] VITALS: Ht 175.3 cm; Wt 54.4 kg
--- NOTE | 2021-09-10 14:57 | NUR ---
WANTS TO BE ADMITTED AT [facility] MENTAL UNIT
--- NOTE | 2021-09-10 15:00 | NUR ---
URINE COLLECTED AND SENT TO LAB
--- NOTE | 2021-09-10 15:03 | NUR ---
URINE COLLECTED, SENT TO LAB.
--- NOTE | 2021-09-10 15:11 | NUR ---
COVID SWAB DONE AND SENT TO LAB
[2021-09-10 15:15] LABS: BILIRUBIN,URINE NEGATIVE (NEGATIVE); COLOR,URINE YELLOW (YELLOW); LEUKOCYTE ESTERASE ,URINE NEGATIVE (NEGATIVE); NITRITE, URINE NEGATIVE (NEGATIVE); PROTEIN,URINE NEGATIVE (NEGATIVE); UGLUCOSE NEGATIVE (NEGATIVE); UROBILINOGEN,URINE 0.2 EU/dL (0.2)
[2021-09-10 18:10] LABS: BASOPHILS # (AUTO) 0.1 K/uL (0.0-0.2); BASOPHILS % (AUTO) 1.3 % (0.0-2.0); EOSINOPHILS % (AUTO) 2.8 % (0.0-6.0); HEMATOCRIT 35 % (39-51); HEMOGLOBIN 10.7 g/dL (13.5-17.5); LYMPHOCYTES # (AUTO) 1.3 K/uL (0.8-4.8); LYMPHOCYTES % (AUTO) 29.7 % (20.0-44.0); MEAN CORPUSCULAR HGB CONC 31 g/dl (31.0-36.0); MEAN CORPUSCULAR VOLUME 69 fL (80-96); MONOCYTES # (AUTO) 0.4 K/uL (0.1-1.30); NEUTROPHILS # (AUTO) 2.5 K/uL (1.8-8.9); NEUTROPHILS % (AUTO) 57.2 % (43.0-81.0); PLATELET COUNT (AUTO) 553 K/uL (150-450); RED BLOOD CELL COUNT(AUTO) 5.07 MIL/uL (4.5-6.0); WHITE BLOOD COUNT (AUTO) 4.3 K/uL (4.3-11.0)
--- NOTE | 2021-09-10 18:24 | NUR ---
DINNER TRAY PROVIDED
[2021-09-10 18:47] LABS: ALCOHOL, BLOOD < 3 mg/dL (0-0)
[2021-09-10 19:17] LABS: ALANINE AMINOTRANSFERASE 48 U/L (12-78); ALBUMIN 3.4 g/dL (3.4-5.0); BILIRUBIN,DIRECT 0.1 mg/dL (0.0-0.2); CALCIUM, SERUM 8.9 mg/dL (8.5-10.1); CARBON DIOXIDE 25 mmol/L (21-32); CREATININE 0.7 mg/dL (0.6-1.3); GLUCOSE 84 mg/dL (74-106); POTASSIUM 4.3 mmol/L (3.5-5.1); TOTAL PROTEIN, SERUM 7.1 g/dL (6.4-8.2); UREA NITROGEN, BLOOD 16 mg/dL (7-18)
[2021-09-10 19:18] LABS: ALKALINE PHOSPHATASE 82 U/L (46-116); ASPARTATE AMINOTRANSFERASE 31 U/L (15-37); BILIRUBIN,TOTAL 0.3 mg/dL (0.2-1.0); CHLORIDE 96 mmol/L (98-107); SODIUM SERUM 131 mmol/L (136-145)
--- NOTE | 2021-09-10 21:20 | NUR ---
FACESHEET AND CLINICALS FAXED TO [facility].
[2021-09-11 07:36] VITALS: BP 119/71
--- NOTE | 2021-09-11 07:37 | NUR ---
ASSESED PT ON BED AWAKE AND ALERT, NOT IN RESPIRATORY DISTRESSS, V/S STABLA,KEPT RESTED AND COMFORTABLE. WILL CONTINUE TO MONITOR.
--- NOTE | 2021-09-11 08:02 | NUR ---
BREAKFAST TRAY PROVIDED. TOLERATED WELL.
--- NOTE | 2021-09-11 08:06 | NUR ---
CALLED WILL INTAKE PT IS LOOKING TO BE ACCEPTED IN [place] AWAITING ACCEPTANCE.
--- NOTE | 2021-09-11 15:28 | NUR ---
PT ACCEPTED TO [facility] UNDER DR. SHAH CALL [phone] FOR REPORT PLEASE SEND AFTER [phone]
--- NOTE | 2021-09-11 15:28 | NUR ---
PER ROY[facility], PT. IS ACCEPTED TO [facility]. THEY WILL CALL WITH ACCEPTANCE INFORMATION AND TRANSPORT DETAILS SOON.
--- NOTE | 2021-09-11 23:05 | NUR ---
Patient eloped from facility. ER MD notified.
== END 2021-09-11 23:05 | disposition left against medical advice (07) ==
LOC: ER 14:45
DX: R45.851 Suicidal ideations (principal); D50.9 Iron deficiency anemia, unspecified; Z59.00 Homelessness unspecified; Z79.899 Other long term (current) drug therapy; Z53.29 Procedure and treatment not carried out because of patient's decision for other reasons; F25.0 Schizoaffective disorder, bipolar type; Z86.19 Personal history of other infectious and parasitic diseases
CPT/HCPCS: 36415; 80048; 80076; 80143; 80307; 80320; 81003; 85025; 87426; 99285; C9803; G0480

== ENCOUNTER 2021-09-27 00:16 | Emergency (ER) | payer OTHER ==
[~2021-09-27] VITALS: Ht 175.3 cm; Wt 49.9 kg
--- NOTE | 2021-09-27 03:20 | NUR ---
TO ER BED 18. BIBSELF C/O HEARING VOICES TELLING HIM TO "HURT HIMSELF". WOULD LIKE VOLUNTARY ADMISSION FOR [facility]. V/S STABLE. CHANGED INTO GOWN. BELONGINGS OBTAINED AND SECURED. SITTER WITHIN SIGHT. AWAITING MD MICHELLE
--- NOTE | 2021-09-27 03:23 | NUR ---
COVID ANTIGEN SWAB AND URINE COLLECTED AND SENT TO LAB
[2021-09-27 03:31] LABS: BASOPHILS # (AUTO) 0.1 K/uL (0.0-0.2); BASOPHILS % (AUTO) 1.6 % (0.0-2.0); EOSINOPHILS % (AUTO) 3.1 % (0.0-6.0); HEMATOCRIT 32 % (39-51); HEMOGLOBIN 10.2 g/dL (13.5-17.5); LYMPHOCYTES # (AUTO) 1.3 K/uL (0.8-4.8); LYMPHOCYTES % (AUTO) 33.1 % (20.0-44.0); MEAN CORPUSCULAR HGB CONC 31 g/dl (31.0-36.0); MEAN CORPUSCULAR VOLUME 70 fL (80-96); MONOCYTES # (AUTO) 0.3 K/uL (0.1-1.30); MONOCYTES % (AUTO) 7.3 % (2.0-12.0); NEUTROPHILS # (AUTO) 2.2 K/uL (1.8-8.9); NEUTROPHILS % (AUTO) 54.9 % (43.0-81.0); PLATELET COUNT (AUTO) 523 K/uL (150-450)
[2021-09-27 03:37] LABS: CALCIUM, SERUM 8.8 mg/dL (8.5-10.1); CARBON DIOXIDE 32 mmol/L (21-32); CHLORIDE 96 mmol/L (98-107); CREATININE 0.6 mg/dL (0.6-1.3); GLUCOSE 83 mg/dL (74-106); SODIUM SERUM 130 mmol/L (136-145); UREA NITROGEN, BLOOD 16 mg/dL (7-18)
[2021-09-27 03:42] LABS: ALANINE AMINOTRANSFERASE 44 U/L (12-78); ALBUMIN 3.4 g/dL (3.4-5.0); ALCOHOL, BLOOD < 3 mg/dL (0-0); ALKALINE PHOSPHATASE 95 U/L (46-116); ASPARTATE AMINOTRANSFERASE 21 U/L (15-37); BILIRUBIN,DIRECT 0.1 mg/dL (0.0-0.2); BILIRUBIN,TOTAL 0.3 mg/dL (0.2-1.0); TOTAL PROTEIN, SERUM 7.2 g/dL (6.4-8.2)
[2021-09-27 03:44] LABS: ACETAMINOPHEN 0 ug/ml (10-30)
[2021-09-27 04:11] LABS: BILIRUBIN,URINE NEGATIVE (NEGATIVE); COLOR,URINE YELLOW (YELLOW); LEUKOCYTE ESTERASE ,URINE NEGATIVE (NEGATIVE); NITRITE, URINE NEGATIVE (NEGATIVE); PH,URINE 6.5 (5.0-8.0); PROTEIN,URINE NEGATIVE (NEGATIVE); UGLUCOSE NEGATIVE (NEGATIVE); UROBILINOGEN,URINE 0.2 EU/dL (0.2)
--- NOTE | 2021-09-27 07:30 | NUR ---
ASSESSED PT ON BED ASLEEP EASILY AROUSABLE, NOT IN RESPIRATORY DISTRESS, V/S STABLE, KEPT RESTED AND COMFORATBLE. WILL CONTINUE TO MONITOR. BREAKFAST TRAY PROVIDED.
--- NOTE | 2021-09-27 10:05 | NUR ---
CALLED INTAKE AWAITING DISCHARGES
[2021-09-27 12:54] LABS: LYMPHOCYTES % (MANUAL) 36 % (16-48); MONOCYTES % (MANUAL) 6 % (0-11.0); NEUTROPHILS % (MANUAL) 58 (42-76)
--- NOTE | 2021-09-27 14:24 | NUR ---
CALLED WILL INTAKE ONLY FEMALE BED AVAILABLE AWAITING FEED BACK.
--- NOTE | 2021-09-28 05:05 | NUR ---
PT RESTING COMFORTABLY. NO SIGNS OF DISTRESS NOTED. PT EASILY AROUSABLE. WILL CONT TO MONITOR PT.
--- NOTE | 2021-09-28 08:30 | NUR ---
CALLED [facility] REGARDING PT ACCEPTANCE INFO AND WAS NOTIFIED THAT THE PT'S CLINICAL PACKET WAS SENT TO [facility]. AWAITING FEEDBACK FROM THAT FACILITY.
--- NOTE | 2021-09-28 11:33 | NUR ---
FOLLOWED-UP WITH [facility], AWAITING FEEDBACK.
[2021-09-28 12:42] VITALS: BP 130/88
[2021-09-28] MEDS ORDERED: LORAZEPAM 1 MG TABLET PO ONE (14:00)
[2021-09-28] MEDS ORDERED: OLANZAPINE 10 MG VIAL IM ONE ×2 (14:00→14:19)
[2021-09-28] MEDS ORDERED: LORAZEPAM 0.5 MG TABLET ONE ×2 (14:19→22:01)
--- NOTE | 2021-09-28 14:37 | NUR ---
PROVIDED W SANDWICH AND WATER. TOLERATED WELL
[2021-09-28] MEDS ORDERED: LORAZEPAM 0.5 MG TABLET PO ONE (22:00)
--- NOTE | 2021-09-28 23:16 | NUR ---
PT ACCEPTED [facility] / THEY WILL CALL BACK WITH ACCEPTING NUMBER FOR REPORT: [phone]
--- NOTE | 2021-09-28 23:24 | NUR ---
[facility] ETA 1 HOUR.
--- NOTE | 2021-09-28 23:32 | NUR ---
REPORT GIVEN TO ERIKA GARSIA FROM [facility] FOR MERYL
--- NOTE | 2021-09-29 01:07 | NUR ---
REPORT GIVEN TO [facility]. PT BEING STRAN[facility]ERRED TO [facility]
== END 2021-09-29 01:10 ==
LOC: ER 00:24
DX: R45.851 Suicidal ideations (principal); F25.9 Schizoaffective disorder, unspecified; F31.9 Bipolar disorder, unspecified; F15.10 Other stimulant abuse, uncomplicated; Z59.00 Homelessness unspecified; Z86.19 Personal history of other infectious and parasitic diseases; Z79.899 Other long term (current) drug therapy; Z20.822 Contact with and (suspected) exposure to COVID-19; Z88.8 Allergy status to other drugs, medicaments and biological substances
CPT/HCPCS: 36415; 80048; 80076; 80143; 80307; 80320; 81003; 85007; 85025; 87426; 96372; 99285; C9803; J3490; G0480

== ENCOUNTER 2021-11-16 01:43 | Emergency (ER) | payer OTHER ==
[~2021-11-16] VITALS: Ht 175.3 cm; Wt 49.9 kg
--- NOTE | 2021-11-16 02:05 | NUR ---
PATIENT BIBSELF C/O +SI, PLAN TO HURT SELF. PT IS A/O X 4, RR EVEN AND UNLABORED, NO SOB NOTED, VSS, PT AFEBRILE. PT BELONGINGS TAKEN AND PLACED IN HOSPITAL GOWN, PT PATTED DOWN FROM HEAD TO TOE, WITH RN, EMT AND SECURITY PRESENT. PATIENT TAKEN TO ER BED 18. SITTER AT BEDSIDE. WILL CONTINUE TO MONITOR.
--- NOTE | 2021-11-16 02:15 | NUR ---
HAND POLISHER AT PT'S BEDSIDE
[2021-11-16 02:33] LABS: BILIRUBIN,URINE NEGATIVE (NEGATIVE); COLOR,URINE YELLOW (YELLOW); LEUKOCYTE ESTERASE ,URINE NEGATIVE (NEGATIVE); NITRITE, URINE NEGATIVE (NEGATIVE); PH,URINE 6.5 (5.0-8.0); PROTEIN,URINE TRACE mg/dl (NEGATIVE); UGLUCOSE NEGATIVE (NEGATIVE); UROBILINOGEN,URINE 0.2 EU/dL (0.2)
[2021-11-16 02:34] LABS: BASOPHILS % (AUTO) 0.7 % (0.0-2.0); EOSINOPHILS % (AUTO) 1.6 % (0.0-6.0); HEMATOCRIT 31 % (39-51); HEMOGLOBIN 9.7 g/dL (13.5-17.5); LYMPHOCYTES # (AUTO) 1.2 K/uL (0.8-4.8); LYMPHOCYTES % (AUTO) 19.6 % (20.0-44.0); MEAN CORPUSCULAR HGB CONC 32 g/dl (31.0-36.0); MEAN CORPUSCULAR VOLUME 71 fL (80-96); MONOCYTES # (AUTO) 0.5 K/uL (0.1-1.30); NEUTROPHILS # (AUTO) 4.2 K/uL (1.8-8.9); NEUTROPHILS % (AUTO) 70.1 % (43.0-81.0); PLATELET COUNT (AUTO) 528 K/uL (150-450); RED BLOOD CELL COUNT(AUTO) 4.32 MIL/uL (4.5-6.0)
[2021-11-16 03:11] LABS: ALANINE AMINOTRANSFERASE 24 U/L (12-78); ALBUMIN 3.3 g/dL (3.4-5.0); ALKALINE PHOSPHATASE 80 U/L (46-116); ASPARTATE AMINOTRANSFERASE 18 U/L (15-37); BILIRUBIN,DIRECT 0.1 mg/dL (0.0-0.2); BILIRUBIN,TOTAL 0.5 mg/dL (0.2-1.0); CALCIUM, SERUM 8.6 mg/dL (8.5-10.1); CARBON DIOXIDE 27 mmol/L (21-32); CHLORIDE 98 mmol/L (98-107); CREATININE 0.7 mg/dL (0.6-1.3); GLUCOSE 75 mg/dL (74-106); POTASSIUM 4.4 mmol/L (3.5-5.1); SODIUM SERUM 133 mmol/L (136-145); UREA NITROGEN, BLOOD 21 mg/dL (7-18)
[2021-11-16 03:13] LABS: ACETAMINOPHEN < 2 ug/ml (10-30); ALCOHOL, BLOOD < 3 mg/dL (0-0)
--- NOTE | 2021-11-16 03:33 | NUR ---
FACESHEET AND CLINICALS FAXED TO [facility] INTAKE.
--- NOTE | 2021-11-16 08:58 | NUR ---
PT ACCEPTED TO [facility] AWAITING BED AVAILABILITY, WILL CALL US BACK.
--- NOTE | 2021-11-16 10:45 | NUR ---
Followed-up [facility], still waiting for bed availability.
--- NOTE | 2021-11-16 11:54 | NUR ---
Per Zoë, waiting for discharges at [facility].
--- NOTE | 2021-11-16 13:47 | NUR ---
[facility] CALLED REGARDING PT ACCEPTANCE GOING TO [place] UNDER THE CARE OF DR. GARCIA NUMBER FOR REPORT [phone]
--- NOTE | 2021-11-16 13:49 | NUR ---
CALLED [facility] AND SET UP BLS TRANSPORT ETA 1500
[2021-11-16 15:00] VITALS: BP 141/80
--- NOTE | 2021-11-16 15:19 | NUR ---
REPORT GIVEN TO VILMA JOSEPH FOR M[facility]
--- NOTE | 2021-11-16 15:21 | NUR ---
PICKED UP BY TRANSPORT IN STABLE CONDITION
== END 2021-11-16 15:22 ==
LOC: ER 01:43
DX: R45.851 Suicidal ideations (principal); F15.10 Other stimulant abuse, uncomplicated; Z20.822 Contact with and (suspected) exposure to COVID-19; Z59.00 Homelessness unspecified; F25.9 Schizoaffective disorder, unspecified; F31.9 Bipolar disorder, unspecified; D64.9 Anemia, unspecified; Z88.8 Allergy status to other drugs, medicaments and biological substances; F17.200 Nicotine dependence, unspecified, uncomplicated
CPT/HCPCS: 36415; 80048; 80076; 80143; 80307; 80320; 81003; 85025; 87426; 99285; C9803; G0480

== ENCOUNTER 2022-01-06 06:07 | Emergency (ER) | payer OTHER ==
[~2022-01-06] VITALS: Ht 175.3 cm; Wt 52.2 kg
--- NOTE | 2022-01-06 06:24 | NUR ---
PATIENT BIBSELF C/O + SI WITH PLAN, WANT VOL PSYCH ADMIT. PATIENT IS A/O X 4, RR EVEN AND UNLABORED, NO SOB NOTED, VSS. PATIENT TAKEN TO ER BED 18 WITH RN, EMT AND SECURITY AT BEDSIDE FOR PATIENT WANDING. PATIENT BELONGINGS TAKEN AND PLACED IN LOCKER, PATIENT PLACED IN HOSPITAL GOWN. WILL CONTINUE TO MONITOR.
--- NOTE | 2022-01-06 06:24 | NUR ---
COVID SWAB COLLECTED SENT TO LAB
[2022-01-06 06:53] LABS: BASOPHILS # (AUTO) 0.1 K/uL (0.0-0.2); BASOPHILS % (AUTO) 2.2 % (0.0-2.0); EOSINOPHILS % (AUTO) 3.7 % (0.0-6.0); HEMATOCRIT 31 % (39-51); HEMOGLOBIN 9.7 g/dL (13.5-17.5); LYMPHOCYTES % (AUTO) 26.6 % (20.0-44.0); MEAN CORPUSCULAR HGB CONC 32 g/dl (31.0-36.0); MEAN CORPUSCULAR VOLUME 73 fL (80-96); MONOCYTES # (AUTO) 0.4 K/uL (0.1-1.30); MONOCYTES % (AUTO) 9.9 % (2.0-12.0); NEUTROPHILS # (AUTO) 2.3 K/uL (1.8-8.9); NEUTROPHILS % (AUTO) 57.6 % (43.0-81.0); PLATELET COUNT (AUTO) 857 K/uL (150-450); RED BLOOD CELL COUNT(AUTO) 4.19 MIL/uL (4.5-6.0); WHITE BLOOD COUNT (AUTO) 3.9 K/uL (4.3-11.0)
[2022-01-06 07:18] LABS: ALANINE AMINOTRANSFERASE 43 U/L (12-78); ALBUMIN 3.2 g/dL (3.4-5.0); ALKALINE PHOSPHATASE 82 U/L (46-116); ASPARTATE AMINOTRANSFERASE 22 U/L (15-37); BILIRUBIN,DIRECT 0.1 mg/dL (0.0-0.2); BILIRUBIN,TOTAL 0.2 mg/dL (0.2-1.0); CALCIUM, SERUM 8.4 mg/dL (8.5-10.1); CARBON DIOXIDE 31 mmol/L (21-32); CHLORIDE 98 mmol/L (98-107); CREATININE 0.6 mg/dL (0.6-1.3); GLUCOSE 137 mg/dL (74-106); POTASSIUM 3.8 mmol/L (3.5-5.1); SODIUM SERUM 134 mmol/L (136-145); TOTAL PROTEIN, SERUM 7.4 g/dL (6.4-8.2); UREA NITROGEN, BLOOD 16 mg/dL (7-18)
[2022-01-06 07:23] LABS: ACETAMINOPHEN < 10 ug/ml (10-30); ALCOHOL, BLOOD < 3 mg/dL (0-0)
--- NOTE | 2022-01-06 08:28 | NUR ---
COVID ANTIGEN SWAB DONE AND SENT TO THE LAB
[2022-01-06 11:13] LABS: BILIRUBIN,URINE NEGATIVE (NEGATIVE); COLOR,URINE YELLOW (YELLOW); LEUKOCYTE ESTERASE ,URINE NEGATIVE (NEGATIVE); NITRITE, URINE NEGATIVE (NEGATIVE); PROTEIN,URINE NEGATIVE (NEGATIVE); UGLUCOSE NEGATIVE (NEGATIVE); UROBILINOGEN,URINE 0.2 EU/dL (0.2)
--- NOTE | 2022-01-06 12:23 | NUR ---
SS consult requested for suicidal ideation. Pt. is a 41-year-old male who was admitted to [facility] on 01/06/2022 due to suicidal ideation. Upon SS consult, pt. is alert and oriented x3 (time, self and situation). Pt. presents with a depressed mood and low speech. Pt. appears disheveled. Pt. is cooperative throughout the interview. account planner explored pt.s social support. Pt. stated he had no social support. account planner explored pt.s living situation. Pt. stated he was homeless. [place] [address] ([phone]). A homeless waiver was signed and given to the patient and a copy was placed in the chart. Pt. will be alert and oriented x4 upon discharge. Pt. stated he wanted to be referred to [facility]. account planner faxed clinicals to [facility] ([phone]). account planner explored pt.s substance use history. Pt. stated he uses methamphetamine and cannabinoids. account planner referred the pt. to [facility] ([address] [place] [address]). account planner explored pt.s psychiatric diagnosis. Pt. stated he has a diagnosis of schizoaffective disorder. Pt. stated he takes trazodone. Pt. stated he has auditory hallucinations. Pt. stated he is not currently having auditory hallucination. Pt. stated he currently has suicidal ideation with no plan. Pt. denied homicidal ideation. Plan: Upon discharge, pt. will be discharged to [facility] [[address] [place] [address]].
--- NOTE | 2022-01-07 08:31 | NUR ---
HÉCTOR called [employer] TEL:[phone] fax:[phone] and spoke to intake to get update on admission. Per Intake the pt. has high platelet count so he was not accepted to [facility] as they do not have an ER if needed. Pt. was not accepted to go to [place] location because he is on the high risk list. If pt. wants to go [facility], the soonest he oj that is on 01/08/22, as there is a three day rule between admissions at the same location per insurance. HÉCTOR notified Alexa and HÉCTOR will discuss with pt.
--- NOTE | 2022-01-07 10:17 | NUR ---
DC Note: HÉCTOR met with pt. at bedside. The pt. is currently alert & oriented x 4 and makes good eye contact. The pt. appears unkempt and speech is WNL. The pt. has anxious mood and congruent affect. The pt. denies any suicidal ideation at this time. Pt. also denies HI and denies hallucinations. Per pt. he wants to be discharged to self. Pt. states he "lives on the streets" and will return there. Patient was provided with homeless reosurces and pt. signed homeless waiver yesterday dn it was placed int he chart. HÉCTOR also provided pt. with warm clothing and a tap card. HÉCTOR discussed DC with MD. Patient was provided with the following resources: Year-round shelters: [place] [facility] [address] [place], [place] [phone] ; [facility] [address] [place] [address]; [facility] Ntxkpvt0364 [facility] [address] Hygiene: [facility]: [address] [facility] ; [facility] [address] [facility] ; [facility] 8[address] [facility] . Food Resources: [place] [facility] at [facility]- 57[address] [facility]; Meet Each Need with Dignity ([facility]) [address] [facility]; [facility] 4888 [facility]; [facility] [address] [facility]. Mental Health resources provided: [facility] [address] [place] [address] ; [facility] Mental Health [employer] [address] [facility] [address], [place] [address] ; [facility] [address] [place] [address] ; [facility] [place] [address] Healthcare Clinics: [facility] [address] [facility], [address] [place]. [place] ; [facility] [address] [facility] [address] [place] [address]; [facility] [address] [place] [phone] Counseling--Outpatient [facility] [address] [facility], [place] [address] (Specializes in in-depth psychotherapy for emotional distress: anxiety, depression, interpersonal conflicts, life transitions, childhood abuse) [facility] [address] [place] [address] (Assist with solving problem marital difficulties, separation & divorce, aging parents, & grief, chronic & terminal illness) [facility] [address] [place] [address] (Deal with loss & grief, anxiety, marital difficulties) Homebound/Mental Health Services [address] [facility], [address] [place] [address] (Provide in-home mental services to people who are incapable of leaving their homes) Organization for Needs of the Elderly Senior Service/Resource Center [address] [facility] [place] [address] [facility] [address] [place] [address] PSYCHIATRIC OUTPATIENT SERVICES [facility] Partial Hospitalization and Intensive Outpatient Program (Managed Care and [place] Only)[address] [facility] [phone] [facility] Partial Hospitalization and Outpatient [id number] [facility]. [address] [place], [place] [phone] [facility] [id number] [facility] [address] [place], [place] [phone] [facility] Partial Hospitalization and Outpatient [id number] [place], [phone] Substance Abuse resources provided included: [facility] Substance Abuse Self-Helpline ([facility]) ; CRI -HELP [address] [facility]. [place] [id number] ; [facility] [address] [facility] [address] ; [facility] Rehabilitation [facility] [address] [place] [address] ; [facility] [address] [facility] [phone] ; [facility] 4940 [facility] [phone] ; [facility] [address] [facility] [phone] ; [facility] Substance Abuse Helpline([facility] ; [facility] ; [facility]; [facility]; [facility] [place]; [facility] Jj marino; [facility] [place]; [facility] [place]; [facility]; [facility] [employer] [place]; Alcoholics Anonymous -SFV; Ob-Xauc-Tlprpzl ; Marijuana Anonymous -SFV; Narcotics Anonymous www.na.org;
[2022-01-07 10:39] VITALS: BP 131/70
--- NOTE | 2022-01-07 10:39 | NUR ---
Patient discharged to home in stable condition. Written and verbal after care instructions given. Patient verbalizes understanding of instruction.
== END 2022-01-07 11:14 | disposition home or self-care (01) ==
LOC: ER 06:07
DX: R45.851 Suicidal ideations (principal); D64.9 Anemia, unspecified; Z86.19 Personal history of other infectious and parasitic diseases; F25.9 Schizoaffective disorder, unspecified; F31.9 Bipolar disorder, unspecified; Z28.310 Unvaccinated for COVID-19; Z20.822 Contact with and (suspected) exposure to COVID-19; Z59.00 Homelessness unspecified; Z79.899 Other long term (current) drug therapy; D75.839 Thrombocytosis, unspecified
CPT/HCPCS: 99285; 85025; 80048; 80076; 81003; 36415; 87426; 80143; 80320; 80307; C9803; G0480

== ENCOUNTER 2022-03-20 08:13 | Emergency (ER) | payer OTHER ==
[~2022-03-20] VITALS: Ht 175.3 cm; Wt 46.7 kg
[2022-03-20 08:38] VITALS: BP 129/80
--- NOTE | 2022-03-20 08:40 | NUR ---
TO ER BED 18, KAREN WANTS TO GO VOLUNTARY TO PSYCH FACILITY, WITH SI PLAN TO RUN INTO TRAFFIC, AAOX3, BREATHING EVEN AND NON LABORED, COOPERATIVE, SECURITY AT BEDSIDE FOR WANDING, AWAITING MD MICHELLE
--- NOTE | 2022-03-20 09:09 | NUR ---
UNABLE TO PROVIDE URINE AT THIS TIME
[2022-03-20 09:16] LABS: BASOPHILS % (AUTO) 0.4 % (0.0-2.0); EOSINOPHILS % (AUTO) 0.6 % (0.0-6.0); HEMATOCRIT 33 % (39-51); HEMOGLOBIN 10.8 g/dL (13.5-17.5); LYMPHOCYTES # (AUTO) 1.2 K/uL (0.8-4.8); LYMPHOCYTES % (AUTO) 13.9 % (20.0-44.0); MEAN CORPUSCULAR HGB CONC 33 g/dl (31.0-36.0); MEAN CORPUSCULAR VOLUME 77 fL (80-96); MONOCYTES % (AUTO) 11.1 % (2.0-12.0); NEUTROPHILS # (AUTO) 6.4 K/uL (1.8-8.9); PLATELET COUNT (AUTO) 386 K/uL (150-450); RED BLOOD CELL COUNT(AUTO) 4.31 MIL/uL (4.5-6.0); WHITE BLOOD COUNT (AUTO) 8.7 K/uL (4.3-11.0)
[2022-03-20 09:27] LABS: CALCIUM, SERUM 9.1 mg/dL (8.5-10.1); CARBON DIOXIDE 34 mmol/L (21-32); CHLORIDE 99 mmol/L (98-107); CREATININE 0.6 mg/dL (0.6-1.3); GLUCOSE 89 mg/dL (74-106); POTASSIUM 4.4 mmol/L (3.5-5.1); SODIUM SERUM 136 mmol/L (136-145); UREA NITROGEN, BLOOD 14 mg/dL (7-18)
[2022-03-20 09:33] LABS: ALANINE AMINOTRANSFERASE 70 U/L (12-78); ALBUMIN 3.3 g/dL (3.4-5.0); ALCOHOL, BLOOD < 3 mg/dL (0-0); ALKALINE PHOSPHATASE 77 U/L (46-116); ASPARTATE AMINOTRANSFERASE 35 U/L (15-37); BILIRUBIN,DIRECT 0.1 mg/dL (0.0-0.2); BILIRUBIN,TOTAL 0.4 mg/dL (0.2-1.0); TOTAL PROTEIN, SERUM 7.2 g/dL (6.4-8.2)
[2022-03-20 09:37] LABS: ACETAMINOPHEN < 10 ug/ml (10-30)
--- NOTE | 2022-03-20 09:39 | NUR ---
COVID SWAB DONE AND SENT TO LAB
--- NOTE | 2022-03-20 10:16 | NUR ---
URINE COLLECTED AND SENT TO LAB
[2022-03-20 10:50] LABS: BILIRUBIN,URINE NEGATIVE (NEGATIVE); COLOR,URINE YELLOW (YELLOW); LEUKOCYTE ESTERASE ,URINE NEGATIVE (NEGATIVE); NITRITE, URINE NEGATIVE (NEGATIVE); PH,URINE 5.5 (5.0-8.0); PROTEIN,URINE NEGATIVE (NEGATIVE); UGLUCOSE NEGATIVE (NEGATIVE); UROBILINOGEN,URINE 0.2 EU/dL (0.2)
[2022-03-20 11:11] LABS: BACTERIA,URINE Few /HPF (None Seen); RBC,URINE 0-2 /HPF (0-2); SQUAMOUS EPITHELIAL CELL,UR Few /HPF (None Seen); WBC,URINE 0-2 /HPF (0-3)
[2022-03-20] MEDS ORDERED: OLANZAPINE 10 MG VIAL IM ONE (11:38)
[2022-03-20] MEDS: OLANZAPINE 10 MG VIAL IM ONE (11:40)
--- NOTE | 2022-03-20 13:27 | NUR ---
FAXED CLINICALS TO [facility] INTAKE.
--- NOTE | 2022-03-20 16:28 | NUR ---
ACCEPTED TO [facility] UNDER DR KUMAR NUMBER FOR REPORT [phone] ASKED TO SET UP TRANSPORTATION AFTER SHIFT ([phone])
--- NOTE | 2022-03-20 16:33 | NUR ---
[facility] CALLED FOR TRANSPORT REQUESTED ETA OF 1929 SPOKE WITH LEXA.
--- NOTE | 2022-03-20 19:09 | NUR ---
GAVE REPORT TO IJ FOR MERYL
--- NOTE | 2022-03-20 19:29 | NUR ---
REPORT GIVEN TO EMS AT BEDSIDE
--- NOTE | 2022-03-20 19:35 | NUR ---
PT LEFT ON GURNEY WITH 2 EMT ON STABLE CONDITION. REPORT GIVEN.
== END 2022-03-20 19:37 ==
LOC: ER 08:16
DX: R45.851 Suicidal ideations (principal); F25.9 Schizoaffective disorder, unspecified; F31.9 Bipolar disorder, unspecified; D50.9 Iron deficiency anemia, unspecified; Z59.00 Homelessness unspecified; Z86.19 Personal history of other infectious and parasitic diseases; Z20.822 Contact with and (suspected) exposure to COVID-19; Z88.8 Allergy status to other drugs, medicaments and biological substances; Z79.899 Other long term (current) drug therapy
CPT/HCPCS: 99285; 96372; 85025; 80048; 80076; 81001; 36415; 87426; 80143; 80320; 80307; J3490; C9803; G0480

== ENCOUNTER 2022-03-27 19:22 | Emergency (ER) | payer OTHER ==
--- NOTE | 2022-03-27 21:30 | NUR ---
CALLED PATIENT FOR TRIAGE NOT IN WAITING ROOM.
--- NOTE | 2022-03-27 22:00 | NUR ---
PATIENT CALLED TO TRIAGE NOT IN WAITING ROOM.
--- NOTE | 2022-03-27 23:00 | NUR ---
PATIENT LEFT BEFORE BEING TRIAGED
== END 2022-03-27 23:01 | disposition left against medical advice (07) ==
LOC: ER 19:30
DX: Z53.21 Procedure and treatment not carried out due to patient leaving prior to being seen by health care provider (principal)

== ENCOUNTER 2022-04-05 04:17 | Emergency (ER) | payer OTHER ==
[~2022-04-05] VITALS: Ht 175.3 cm; Wt 54.4 kg
--- NOTE | 2022-04-05 04:30 | NUR ---
BIBS. TO ER BED 18. AAOX4. NO DISTRESS. AMBULATORY ON STEADY GAIT. CAME IN FOR A MEDICAL CLEARANCE FOR VOLUNTARY ADMISSION FOR SUICIDAL IDEATION W/ PLAN TO CUT HIS WRIST. SHERIF MACKEY. WAS AT THE BEDSIDE FOR EVAL. PT WAS GOWNED, BELONGINGS IN LOCKER, INSPECTED AND WANDED. SITTER WITHIN SIGHT.
--- NOTE | 2022-04-05 04:41 | NUR ---
URINE AND COVID ANTIGEN SWAB COLLECTED AND SEND TO LAB
--- NOTE | 2022-04-05 04:43 | NUR ---
SLUSHER OPERATOR AT PT'S BEDSIDE
[2022-04-05 05:30] LABS: BILIRUBIN,URINE NEGATIVE (NEGATIVE); COLOR,URINE YELLOW (YELLOW); LEUKOCYTE ESTERASE ,URINE NEGATIVE (NEGATIVE); NITRITE, URINE NEGATIVE (NEGATIVE); PROTEIN,URINE NEGATIVE (NEGATIVE); UGLUCOSE NEGATIVE (NEGATIVE); UROBILINOGEN,URINE 0.2 EU/dL (0.2)
[2022-04-05 05:41] LABS: BASOPHILS # (AUTO) 0.1 K/uL (0.0-0.2); BASOPHILS % (AUTO) 1.2 % (0.0-2.0); EOSINOPHILS % (AUTO) 2.7 % (0.0-6.0); HEMATOCRIT 31 % (39-51); HEMOGLOBIN 10.2 g/dL (13.5-17.5); LYMPHOCYTES # (AUTO) 2.1 K/uL (0.8-4.8); MEAN CORPUSCULAR HGB CONC 33 g/dl (31.0-36.0); MEAN CORPUSCULAR VOLUME 77 fL (80-96); MONOCYTES # (AUTO) 0.7 K/uL (0.1-1.30); MONOCYTES % (AUTO) 12.3 % (2.0-12.0); NEUTROPHILS # (AUTO) 2.9 K/uL (1.8-8.9); NEUTROPHILS % (AUTO) 48.8 % (43.0-81.0); PLATELET COUNT (AUTO) 720 K/uL (150-450); RED BLOOD CELL COUNT(AUTO) 4.03 MIL/uL (4.5-6.0); WHITE BLOOD COUNT (AUTO) 5.9 K/uL (4.3-11.0)
[2022-04-05 05:42] LABS: BACTERIA,URINE Rare /HPF (None Seen); RBC,URINE 0-2 /HPF (0-2); SQUAMOUS EPITHELIAL CELL,UR Few /HPF (None Seen); WBC,URINE 0-2 /HPF (0-3)
[2022-04-05 06:25] LABS: ALANINE AMINOTRANSFERASE 50 U/L (12-78); ALBUMIN 3.2 g/dL (3.4-5.0); ALCOHOL, BLOOD < 3 mg/dL (0-0); ALKALINE PHOSPHATASE 123 U/L (46-116); ASPARTATE AMINOTRANSFERASE 31 U/L (15-37); BILIRUBIN,DIRECT 0.1 mg/dL (0.0-0.2); BILIRUBIN,TOTAL 0.2 mg/dL (0.2-1.0); CALCIUM, SERUM 8.5 mg/dL (8.5-10.1); CARBON DIOXIDE 32 mmol/L (21-32); CHLORIDE 105 mmol/L (98-107); CREATININE 0.6 mg/dL (0.6-1.3); GLUCOSE 69 mg/dL (74-106); POTASSIUM 3.5 mmol/L (3.5-5.1); SODIUM SERUM 140 mmol/L (136-145); TOTAL PROTEIN, SERUM 6.9 g/dL (6.4-8.2); UREA NITROGEN, BLOOD 5 mg/dL (7-18)
[2022-04-05 06:27] LABS: ACETAMINOPHEN < 10 ug/ml (10-30)
--- NOTE | 2022-04-05 06:58 | NUR ---
FAXED FACE SHEET AND CLINICALS TO [facility]
[2022-04-05 09:49] VITALS: BP 122/76
--- NOTE | 2022-04-05 10:11 | NUR ---
Per [facility] intake, HÉCTOR refaxed clinicals to [email or web address] TEL:[phone] FAX:[phone] for voluntary admission to [facility].
--- NOTE | 2022-04-05 12:44 | NUR ---
PT ACCEPTED TO [facility] UNDER DR SHAH NUMBER FOR REPORT [phone] TRANSPORTATION WILL BE HERE AT 1330
--- NOTE | 2022-04-05 13:25 | NUR ---
TRANSPORT FROM [facility] HERE TO PICK PATIENT UP
== END 2022-04-05 13:33 ==
LOC: ER 04:17
DX: R45.851 Suicidal ideations (principal); D64.9 Anemia, unspecified; F25.9 Schizoaffective disorder, unspecified; F31.9 Bipolar disorder, unspecified; Z88.8 Allergy status to other drugs, medicaments and biological substances; Z20.822 Contact with and (suspected) exposure to COVID-19; Z86.19 Personal history of other infectious and parasitic diseases; Z59.00 Homelessness unspecified; Z79.899 Other long term (current) drug therapy
CPT/HCPCS: 99285; 85025; 80048; 80076; 81001; 36415; 87426; 80143; 80320; 80307; C9803; G0480

== ENCOUNTER 2022-04-24 03:02 | Emergency (ER) | payer OTHER ==
[~2022-04-24] VITALS: Ht 175.3 cm; Wt 54.4 kg
--- NOTE | 2022-04-24 03:28 | NUR ---
BIBS. TO ER BED 18. AAOX4. NOT IN RESP DISTRESS. AMBUALTORY ON STEADY GAIT. CAME IN SEEKING FOR MEDICAL CLEARANCE FOR A VOLUNTARY ADMISSION FOR SUICIDAL IDEATION W/O SPECIFIC PLAN. PT REPORTS VOICES TELLING HIM TO HARM HIMSELF. DENIES HI. PT WAS PLACED IN GOWN, BELONGINGS PLACED IN LOCKER. VISUALLY INSPECTED. SITTER WITHIN SIGHT. COVID SWAB DONE. AWAITING FOR URINE
--- NOTE | 2022-04-24 03:28 | NUR ---
Dimitris ruelas in [facility] - 04/24/22 at 0328 by STUART katherine
[2022-04-24 04:02] LABS: BASOPHILS # (AUTO) 0.1 K/uL (0.0-0.2); BASOPHILS % (AUTO) 0.6 % (0.0-2.0); EOSINOPHILS % (AUTO) 0.7 % (0.0-6.0); HEMATOCRIT 31 % (39-51); HEMOGLOBIN 10.1 g/dL (13.5-17.5); LYMPHOCYTES # (AUTO) 1.5 K/uL (0.8-4.8); LYMPHOCYTES % (AUTO) 18.3 % (20.0-44.0); MEAN CORPUSCULAR HGB CONC 32 g/dl (31.0-36.0); MEAN CORPUSCULAR VOLUME 78 fL (80-96); MONOCYTES # (AUTO) 0.8 K/uL (0.1-1.30); MONOCYTES % (AUTO) 9.5 % (2.0-12.0); NEUTROPHILS # (AUTO) 5.9 K/uL (1.8-8.9); NEUTROPHILS % (AUTO) 70.9 % (43.0-81.0); PLATELET COUNT (AUTO) 467 K/uL (150-450); RED BLOOD CELL COUNT(AUTO) 3.99 MIL/uL (4.5-6.0); WHITE BLOOD COUNT (AUTO) 8.3 K/uL (4.3-11.0)
[2022-04-24 04:03] LABS: BILIRUBIN,URINE NEGATIVE (NEGATIVE); COLOR,URINE YELLOW (YELLOW); LEUKOCYTE ESTERASE ,URINE NEGATIVE (NEGATIVE); NITRITE, URINE NEGATIVE (NEGATIVE); PH,URINE 6.5 (5.0-8.0); PROTEIN,URINE NEGATIVE (NEGATIVE); UGLUCOSE NEGATIVE (NEGATIVE); UROBILINOGEN,URINE 0.2 EU/dL (0.2)
[2022-04-24 04:13] LABS: CARBON DIOXIDE 31 mmol/L (21-32); CHLORIDE 97 mmol/L (98-107); CREATININE 0.6 mg/dL (0.6-1.3); GLUCOSE 98 mg/dL (74-106); POTASSIUM 3.5 mmol/L (3.5-5.1); SODIUM SERUM 133 mmol/L (136-145); UREA NITROGEN, BLOOD 20 mg/dL (7-18)
[2022-04-24 04:18] LABS: BACTERIA,URINE Rare /HPF (None Seen); SQUAMOUS EPITHELIAL CELL,UR Rare /HPF (None Seen); WBC,URINE 0-2 /HPF (0-3)
[2022-04-24 04:19] LABS: ALANINE AMINOTRANSFERASE 35 U/L (12-78); ALBUMIN 3.6 g/dL (3.4-5.0); ALCOHOL, BLOOD < 3 mg/dL (0-0); ALKALINE PHOSPHATASE 95 U/L (46-116); ASPARTATE AMINOTRANSFERASE 19 U/L (15-37); BILIRUBIN,DIRECT 0.1 mg/dL (0.0-0.2); BILIRUBIN,TOTAL 0.5 mg/dL (0.2-1.0); TOTAL PROTEIN, SERUM 7.4 g/dL (6.4-8.2)
[2022-04-24 04:21] LABS: ACETAMINOPHEN 0 ug/ml (10-30)
--- NOTE | 2022-04-24 04:35 | NUR ---
FACESHEET AND CLINICALS FAXED TO [facility].
[2022-04-24 07:30] VITALS: BP 135/86
--- NOTE | 2022-04-24 08:26 | NUR ---
Dimitris ruelas in [facility] - 04/24/22 at 0839 by JOVANY BED [phone]
--- NOTE | 2022-04-24 08:28 | NUR ---
PT ACCEPTED AT [facility], WAITING ON A BED PER LG.
--- NOTE | 2022-04-24 10:46 | NUR ---
PT ACCEPTED AT [facility] UNDER THE CARE OF DR. SHAH.
--- NOTE | 2022-04-24 10:52 | NUR ---
[facility] CALLED FOR TRANSPORT, ETA 30-45 MIN PER REZA.
--- NOTE | 2022-04-24 11:52 | NUR ---
Patient discharged to home in stable condition. Written and verbal after care instructions given. Patient verbalizes understanding of instruction.
== END 2022-04-24 11:55 ==
LOC: ER 03:08
DX: R45.851 Suicidal ideations (principal); F25.9 Schizoaffective disorder, unspecified; F31.9 Bipolar disorder, unspecified; Z86.19 Personal history of other infectious and parasitic diseases; Z59.00 Homelessness unspecified; D64.9 Anemia, unspecified; Z20.822 Contact with and (suspected) exposure to COVID-19; Z79.899 Other long term (current) drug therapy; F17.210 Nicotine dependence, cigarettes, uncomplicated
CPT/HCPCS: 99285; 99406; 85025; 80048; 80076; 81001; 36415; 87426; 80143; 80320; 80307; C9803; G0480

== ENCOUNTER 2022-05-13 16:54 | Emergency (ER) | payer OTHER ==
--- NOTE | 2022-05-13 17:45 | NUR ---
Multiple calls NO response
--- NOTE | 2022-05-13 18:02 | NUR ---
CALLED FOR TRIAGE, NO RESPONSE.
--- NOTE | 2022-05-13 19:21 | NUR ---
called to triage once again, still no answer.
== END 2022-05-13 19:23 | disposition left against medical advice (07) ==
LOC: ER 17:06
DX: Z53.21 Procedure and treatment not carried out due to patient leaving prior to being seen by health care provider (principal)

== ENCOUNTER 2022-05-21 00:21 | Emergency (ER) | payer OTHER ==
[~2022-05-21] VITALS: Ht 175.3 cm; Wt 54.4 kg
--- NOTE | 2022-05-21 02:05 | NUR ---
URINE SAMPLE COLLECTED
--- NOTE | 2022-05-21 02:05 | NUR ---
COVID SWAB COLLECTED
[2022-05-21 02:06] VITALS: BP 122/85
--- NOTE | 2022-05-21 02:06 | NUR ---
BIBS FROM STREET C/O SI W/ PLAN TO CUT SELF, REQUESTING VOLUNT. ADMISSION TO [facility]. PT A/OX3. TOLERATING R/A WELL WITH NO SOB. RESP EVEN AND NON LABORED. PT CHANGED IN GOWN, BELONGINGS PLACED IN LOCKER, AND WANDED BY SECURITY. SAFETY MEASURES IN PLACE.
--- NOTE | 2022-05-21 02:09 | NUR ---
HOGSHEAD BUILDER AT PT'S BEDSIDE
[2022-05-21 02:42] LABS: BILIRUBIN,URINE 1+ (NEGATIVE); COLOR,URINE YELLOW (YELLOW); LEUKOCYTE ESTERASE ,URINE NEGATIVE (NEGATIVE); NITRITE, URINE NEGATIVE (NEGATIVE); PROTEIN,URINE NEGATIVE (NEGATIVE); UGLUCOSE NEGATIVE (NEGATIVE); UROBILINOGEN,URINE 0.2 EU/dL (0.2)
[2022-05-21 02:56] LABS: CALCIUM, SERUM 8.2 mg/dL (8.5-10.1); CARBON DIOXIDE 29 mmol/L (21-32); CHLORIDE 103 mmol/L (98-107); CREATININE 0.8 mg/dL (0.6-1.3); GLUCOSE 67 mg/dL (74-106); POTASSIUM 3.1 mmol/L (3.5-5.1); SODIUM SERUM 135 mmol/L (136-145); UREA NITROGEN, BLOOD 18 mg/dL (7-18)
[2022-05-21 02:57] LABS: BASOPHILS # (AUTO) 0.1 K/uL (0.0-0.2); BASOPHILS % (AUTO) 1.5 % (0.0-2.0); EOSINOPHILS % (AUTO) 6.4 % (0.0-6.0); HEMATOCRIT 35 % (39-51); HEMOGLOBIN 10.6 g/dL (13.5-17.5); LYMPHOCYTES % (AUTO) 36.8 % (20.0-44.0); MEAN CORPUSCULAR HGB CONC 30 g/dl (31.0-36.0); MEAN CORPUSCULAR VOLUME 79 fL (80-96); MONOCYTES # (AUTO) 0.6 K/uL (0.1-1.30); MONOCYTES % (AUTO) 11.8 % (2.0-12.0); NEUTROPHILS # (AUTO) 2.4 K/uL (1.8-8.9); NEUTROPHILS % (AUTO) 43.5 % (43.0-81.0); PLATELET COUNT (AUTO) 751 K/uL (150-450); RED BLOOD CELL COUNT(AUTO) 4.48 MIL/uL (4.5-6.0); WHITE BLOOD COUNT (AUTO) 5.5 K/uL (4.3-11.0)
[2022-05-21 02:59] LABS: BACTERIA,URINE Rare /HPF (None Seen); CALCIUM OXALATE CRYSTALS,UR Few /HPF (None Seen); RBC,URINE 0-2 /HPF (0-2); SQUAMOUS EPITHELIAL CELL,UR Few /HPF (None Seen); WBC,URINE 0-2 /HPF (0-3)
[2022-05-21 03:03] LABS: ALANINE AMINOTRANSFERASE 26 U/L (12-78); ALBUMIN 3.5 g/dL (3.4-5.0); ALCOHOL, BLOOD < 3 mg/dL (0-0); ALKALINE PHOSPHATASE 94 U/L (46-116); ASPARTATE AMINOTRANSFERASE 29 U/L (15-37); BILIRUBIN,DIRECT 0.1 mg/dL (0.0-0.2); BILIRUBIN,TOTAL 0.4 mg/dL (0.2-1.0); TOTAL PROTEIN, SERUM 7.4 g/dL (6.4-8.2)
[2022-05-21 03:04] LABS: ACETAMINOPHEN 0 ug/ml (10-30)
--- NOTE | 2022-05-21 03:37 | NUR ---
FACESHEET AND CLINICALS FAXED TO [facility].
[2022-05-21] MEDS ORDERED: POTASSIUM CHLORIDE 20 MEQ TAB.PRT.SR PO ONE ×2 (03:59→04:00)
--- NOTE | 2022-05-21 04:20 | NUR ---
PER [facility] INTAKE ACCEPTING INFO ACCEPTING PHYSICIAN DR. DE LEÓN. CALL FOR REPORT [phone] UNIT 1
--- NOTE | 2022-05-21 04:27 | NUR ---
REPORT GIVEN TO [facility] FOR M[facility]
--- NOTE | 2022-05-21 04:33 | NUR ---
[facility] CALLED FOR BLS GOING TO [facility] ETA - 30 MIN
--- NOTE | 2022-05-21 05:01 | NUR ---
REPORT GIVEN TO [facility] EMT FOR MERYL AND AT PT'S BEDSIDE TO [facility] ALL BELONGINGS WITH PT. VSS.
== END 2022-05-21 05:16 ==
LOC: ER 00:26
DX: R45.851 Suicidal ideations (principal); F19.10 Other psychoactive substance abuse, uncomplicated; Z20.822 Contact with and (suspected) exposure to COVID-19; Z59.00 Homelessness unspecified; Z79.899 Other long term (current) drug therapy; F25.9 Schizoaffective disorder, unspecified; F31.9 Bipolar disorder, unspecified; Z86.19 Personal history of other infectious and parasitic diseases; Z88.8 Allergy status to other drugs, medicaments and biological substances; D64.9 Anemia, unspecified
CPT/HCPCS: 99285; 85025; 80048; 80076; 81001; 36415; 87426; 80143; 80320; 80307; C9803; G0480

== ENCOUNTER 2022-06-05 04:53 | Emergency (ER) | payer OTHER ==
--- NOTE | 2022-06-05 05:55 | NUR ---
called to triage no answer
--- NOTE | 2022-06-05 06:13 | NUR ---
not in waiting room
== END 2022-06-05 06:14 | disposition left against medical advice (07) ==
LOC: ER 04:55
DX: Z53.21 Procedure and treatment not carried out due to patient leaving prior to being seen by health care provider (principal)

== ENCOUNTER 2022-10-09 04:33 | Emergency (ER) | payer OTHER ==
[~2022-10-09] VITALS: Ht 170.2 cm; Wt 67.6 kg
--- NOTE | 2022-10-09 04:33 | NUR ---
BIBSELF REQ VOLUNTARY PSYCH, +SI, RUN INTO TRAFFIC.
--- NOTE | 2022-10-09 04:52 | NUR ---
Patient AOx4 able to express his concerns. Discussed plan of care and floor rules. Discussed plan of care, patient verbalized agreement.
--- NOTE | 2022-10-09 05:00 | NUR ---
COVID SWAB COLLECTED AND SENT TO LAB
--- NOTE | 2022-10-09 05:02 | NUR ---
URINE COLLECTED AND SENT TO LAB
[2022-10-09 05:49] LABS: BASOPHILS # (AUTO) 0.1 K/uL (0.0-0.2); BASOPHILS % (AUTO) 1.2 % (0.0-2.0); EOSINOPHILS % (AUTO) 2.1 % (0.0-6.0); HEMATOCRIT 33 % (39-51); HEMOGLOBIN 10.1 g/dL (13.5-17.5); LYMPHOCYTES # (AUTO) 1.8 K/uL (0.8-4.8); LYMPHOCYTES % (AUTO) 30.2 % (20.0-44.0); MEAN CORPUSCULAR HGB CONC 31 g/dl (31.0-36.0); MEAN CORPUSCULAR VOLUME 72 fL (80-96); MONOCYTES # (AUTO) 0.7 K/uL (0.1-1.30); MONOCYTES % (AUTO) 11.2 % (2.0-12.0); NEUTROPHILS # (AUTO) 3.3 K/uL (1.8-8.9); NEUTROPHILS % (AUTO) 55.3 % (43.0-81.0); PLATELET COUNT (AUTO) 542 K/uL (150-450); RED BLOOD CELL COUNT(AUTO) 4.56 MIL/uL (4.5-6.0); WHITE BLOOD COUNT (AUTO) 6.1 K/uL (4.3-11.0)
[2022-10-09 05:54] LABS: BILIRUBIN,URINE 1+ (NEGATIVE); COLOR,URINE DARK YELLOW (YELLOW); LEUKOCYTE ESTERASE ,URINE NEGATIVE (NEGATIVE); NITRITE, URINE NEGATIVE (NEGATIVE); PH,URINE 5.5 (5.0-8.0); PROTEIN,URINE 1+ mg/dl (NEGATIVE); UGLUCOSE NEGATIVE (NEGATIVE); UROBILINOGEN,URINE 0.2 EU/dL (0.2)
[2022-10-09 05:55] LABS: BACTERIA,URINE Rare /HPF (None Seen); SQUAMOUS EPITHELIAL CELL,UR Few /HPF (None Seen)
[2022-10-09 06:05] LABS: ALANINE AMINOTRANSFERASE 57 U/L (12-78); ALBUMIN 4.1 g/dL (3.4-5.0); ALKALINE PHOSPHATASE 87 U/L (46-116); ASPARTATE AMINOTRANSFERASE 32 U/L (15-37); BILIRUBIN,DIRECT 0.1 mg/dL (0.0-0.2); BILIRUBIN,TOTAL 0.5 mg/dL (0.2-1.0); CALCIUM, SERUM 9.4 mg/dL (8.5-10.1); CARBON DIOXIDE 26 mmol/L (21-32); CHLORIDE 103 mmol/L (98-107); CREATININE 0.7 mg/dL (0.6-1.3); GLUCOSE 77 mg/dL (74-106); POTASSIUM 4.6 mmol/L (3.5-5.1); SODIUM SERUM 138 mmol/L (136-145); TOTAL PROTEIN, SERUM 7.8 g/dL (6.4-8.2); UREA NITROGEN, BLOOD 28 mg/dL (7-18)
[2022-10-09 06:16] LABS: ALCOHOL, BLOOD < 3 mg/dL (0-0)
--- NOTE | 2022-10-09 09:58 | NUR ---
THE PATIENT IS APPECTED TO [facility] PER NURSING SUP TRAVIS.
[2022-10-09 10:45] VITALS: BP 115/60
== END 2022-10-09 11:50 ==
LOC: ER 04:35
DX: R45.851 Suicidal ideations (principal); D64.9 Anemia, unspecified; F25.9 Schizoaffective disorder, unspecified; F17.200 Nicotine dependence, unspecified, uncomplicated; Z79.899 Other long term (current) drug therapy; Z20.822 Contact with and (suspected) exposure to COVID-19; Z88.1 Allergy status to other antibiotic agents
CPT/HCPCS: 99285; 85025; 80048; 80076; 81001; 36415; 87426; 80143; 80320; 80307; C9803; G0480

== ENCOUNTER 2022-11-12 10:17 | Emergency (ER) | payer OTHER ==
[~2022-11-12] VITALS: Ht 172.7 cm; Wt 54.4 kg
--- NOTE | 2022-11-12 11:00 | NUR ---
Im Hearing voices-it tells me to kill myself. Want to go to psych facility. PLACED IN ROOM18, WANDED, GOWNED, WILL CONTINUE TO OBSERVE AND MONITOR.
[2022-11-12 11:21] LABS: CARBON DIOXIDE 29 mmol/L (21-32); CHLORIDE 101 mmol/L (98-107); CREATININE 0.7 mg/dL (0.6-1.3); GLUCOSE 83 mg/dL (74-106); POTASSIUM 4.4 mmol/L (3.5-5.1); SODIUM SERUM 136 mmol/L (136-145); UREA NITROGEN, BLOOD 19 mg/dL (7-18)
[2022-11-12 11:27] LABS: ALANINE AMINOTRANSFERASE 60 U/L (12-78); ALBUMIN 3.6 g/dL (3.4-5.0); ALKALINE PHOSPHATASE 87 U/L (46-116); ASPARTATE AMINOTRANSFERASE 33 U/L (15-37); BILIRUBIN,DIRECT 0.1 mg/dL (0.0-0.2); BILIRUBIN,TOTAL 0.3 mg/dL (0.2-1.0); TOTAL PROTEIN, SERUM 7.4 g/dL (6.4-8.2)
[2022-11-12 11:28] LABS: ALCOHOL, BLOOD < 3 mg/dL (0-10)
[2022-11-12] MEDS ORDERED: QUETIAPINE FUMARATE 100 MG TABLET PO SCH (11:30)
[2022-11-12] MEDS ORDERED: QUETIAPINE FUMARATE 100 MG TABLET ONE (11:37)
[2022-11-12 12:32] LABS: BILIRUBIN,URINE NEGATIVE (NEGATIVE); COLOR,URINE YELLOW (YELLOW); LEUKOCYTE ESTERASE ,URINE NEGATIVE (NEGATIVE); NITRITE, URINE NEGATIVE (NEGATIVE); PROTEIN,URINE NEGATIVE (NEGATIVE); UGLUCOSE NEGATIVE (NEGATIVE); UROBILINOGEN,URINE 0.2 EU/dL (0.2)
--- NOTE | 2022-11-12 13:02 | NUR ---
Lunch Provided - Tolerated well. Swabbed for covid
[2022-11-12 13:11] LABS: HEMOGLOBIN 9.5 g/dL (13.5-17.5); MONOCYTES # (AUTO) 0.5 K/uL (0.1-1.30)
[2022-11-12 13:21] LABS: BACTERIA,URINE Rare /HPF (None Seen); RBC,URINE 81-100 /HPF (0-2); SQUAMOUS EPITHELIAL CELL,UR Rare /HPF (None Seen); WBC,URINE 0-2 /HPF (0-3)
[2022-11-12 13:34] LABS: BASOPHILS # (AUTO) 0.1 K/uL (0.0-0.2); EOSINOPHILS % (AUTO) 1.3 % (0.0-6.0); HEMATOCRIT 31 % (39-51); LYMPHOCYTES # (AUTO) 1.4 K/uL (0.8-4.8); LYMPHOCYTES % (AUTO) 22.1 % (20.0-44.0); MEAN CORPUSCULAR HGB CONC 31 g/dl (31.0-36.0); MEAN CORPUSCULAR VOLUME 72 fL (80-96); MONOCYTES % (AUTO) 7.7 % (2.0-12.0); NEUTROPHILS # (AUTO) 4.2 K/uL (1.8-8.9); NEUTROPHILS % (AUTO) 67.9 % (43.0-81.0); PLATELET COUNT (AUTO) 564 K/uL (150-450); RED BLOOD CELL COUNT(AUTO) 4.27 MIL/uL (4.5-6.0); WHITE BLOOD COUNT (AUTO) 6.2 K/uL (4.3-11.0)
--- NOTE | 2022-11-12 13:56 | NUR ---
FA[facility]ED CLINICALS TO [facility].
--- NOTE | 2022-11-12 14:08 | NUR ---
PT ACCEPTED TO [facility] UNDER DR. SHAH. CALL [phone] FOR REPORT. WILL ARRANGE TRANSPORT.
--- NOTE | 2022-11-12 14:15 | NUR ---
Report to SHASHI Israel Await for tile picker
--- NOTE | 2022-11-12 14:41 | NUR ---
SAND SLINGER OPERATOR WILL TRANSPORT ETA 1515 PER [facility].
[2022-11-12 15:28] VITALS: BP 128/86
--- NOTE | 2022-11-12 15:29 | NUR ---
Report To SHASHI Zaman No obvious distress. Stable to transfer
== END 2022-11-12 15:29 ==
LOC: ER 10:29
DX: R45.851 Suicidal ideations (principal); R31.29 Other microscopic hematuria; R44.0 Auditory hallucinations; D64.9 Anemia, unspecified; F31.9 Bipolar disorder, unspecified; F17.200 Nicotine dependence, unspecified, uncomplicated; Z79.899 Other long term (current) drug therapy; Z20.822 Contact with and (suspected) exposure to COVID-19; Z60.2 Problems related to living alone; Z88.1 Allergy status to other antibiotic agents
CPT/HCPCS: 99285; 85025; 80048; 80076; 81001; 36415; 87426; 80143; 80320; 80307; C9803; G0480

== ENCOUNTER 2023-01-05 07:41 | Emergency (ER) | payer OTHER ==
[~2023-01-05] VITALS: Ht 175.3 cm; Wt 54.4 kg
[~2023-01-05 07:41] MED LIST changes: +BUPR1FIL3 SL; -BUPR75TA8 PO; +BUSP5TAB3 PO; -ESCI10TA PO; -FERR325T23 PO; +FLUO10CA29 PO; +GABA300C PO; -IBUP-1957 PO; -LIDO30AD10 TP
[2023-01-05 08:12] LABS: BASOPHILS # (AUTO) 0.1 K/uL (0.0-0.2); BASOPHILS % (AUTO) 1.5 % (0.0-2.0); EOSINOPHILS % (AUTO) 4.9 % (0.0-6.0); HEMATOCRIT 35 % (39-51); HEMOGLOBIN 10.8 g/dL (13.5-17.5); LYMPHOCYTES # (AUTO) 1.9 K/uL (0.8-4.8); MEAN CORPUSCULAR HGB CONC 31 g/dl (31.0-36.0); MEAN CORPUSCULAR VOLUME 72 fL (80-96); MONOCYTES # (AUTO) 0.5 K/uL (0.1-1.30); NEUTROPHILS # (AUTO) 3.5 K/uL (1.8-8.9); NEUTROPHILS % (AUTO) 55.6 % (43.0-81.0); PLATELET COUNT (AUTO) 557 K/uL (150-450); RED BLOOD CELL COUNT(AUTO) 4.95 MIL/uL (4.5-6.0); WHITE BLOOD COUNT (AUTO) 6.3 K/uL (4.3-11.0)
[2023-01-05 08:19] LABS: CALCIUM, SERUM 9.1 mg/dL (8.5-10.1); CARBON DIOXIDE 28 mmol/L (21-32); CHLORIDE 105 mmol/L (98-107); CREATININE 0.7 mg/dL (0.6-1.3); GLUCOSE 127 mg/dL (74-106); SODIUM SERUM 143 mmol/L (136-145); UREA NITROGEN, BLOOD 23 mg/dL (7-18)
[2023-01-05 08:26] LABS: ALANINE AMINOTRANSFERASE 31 U/L (12-78); ALBUMIN 3.6 g/dL (3.4-5.0); ALCOHOL, BLOOD < 3 mg/dL (0-10); ALKALINE PHOSPHATASE 77 U/L (46-116); ASPARTATE AMINOTRANSFERASE 19 U/L (15-37); BILIRUBIN,DIRECT 0.1 mg/dL (0.0-0.2); BILIRUBIN,TOTAL 0.4 mg/dL (0.2-1.0); TOTAL PROTEIN, SERUM 7.7 g/dL (6.4-8.2)
--- NOTE | 2023-01-05 08:30 | NUR ---
BIBS FOR MEDICAL CLEARANCE. A/O X 3, TOLERATING WELL ON ROOM AIR. WILL CONTINUE TO MONITOR.
--- NOTE | 2023-01-05 08:50 | NUR ---
COVID SWAB OBTAINED
[2023-01-05] MEDS ORDERED: POTASSIUM CHLORIDE 20 MEQ TAB.PRT.SR PO ONE ×2 (10:30→10:32)
[2023-01-05] MEDS ORDERED: NALO4SPR BNOSTRILS (12:52)
--- NOTE | 2023-01-05 13:06 | NUR ---
CLINICALS FAXED TO [facility]
--- NOTE | 2023-01-05 13:07 | NUR ---
PER [facility] - [facility] PTS CURRENTLY WAITING FOR BEDS AND NO ETA AVAILABLE.
--- NOTE | 2023-01-05 20:31 | NUR ---
NEEDS ATTENDED. 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
--- NOTE | 2023-01-06 07:20 | NUR ---
received pt asleep, report given by dong barrett
--- NOTE | 2023-01-06 08:00 | NUR ---
Breakfast served-tolerated well. Still awaiting acceptance to psych facility
--- NOTE | 2023-01-06 08:11 | NUR ---
Maurilio called, fax papers. he will prioritized pt
--- NOTE | 2023-01-06 08:13 | NUR ---
FAXED CLINICALS TO [facility].
--- NOTE | 2023-01-06 12:08 | NUR ---
Ozzie Here to transport pt to [facility]
[2023-01-06 12:21] VITALS: BP 110/65; TEMP 98; O2SAT 99
== END 2023-01-06 12:22 | disposition home or self-care (01) ==
LOC: ER 07:51
DX: F23 Brief psychotic disorder (principal); R45.851 Suicidal ideations; F15.10 Other stimulant abuse, uncomplicated; F12.10 Cannabis abuse, uncomplicated; F11.10 Opioid abuse, uncomplicated; F31.9 Bipolar disorder, unspecified; F17.200 Nicotine dependence, unspecified, uncomplicated; Z88.8 Allergy status to other drugs, medicaments and biological substances; Z60.2 Problems related to living alone; Z20.822 Contact with and (suspected) exposure to COVID-19
CPT/HCPCS: 99285; 85025; 80048; 80076; 36415; 87426; 80143; 80320; 80307; C9803; G0480

== ENCOUNTER 2023-01-29 09:01 | Emergency (ER) | payer OTHER ==
[~2023-01-29] VITALS: Ht 167.6 cm; Wt 49.9 kg
[~2023-01-29 09:01] MED LIST changes: +NALO4SPR BNOSTRILS
[2023-01-29 09:11] VITALS: TEMP 98.2
[2023-01-29 09:15] VITALS: BP 105/82; O2SAT 97
[2023-01-29 09:33] LABS: BASOPHILS % (AUTO) 0.8 % (0.0-2.0); EOSINOPHILS # (AUTO) 0.1 K/uL (0.0-0.7); EOSINOPHILS % (AUTO) 1.9 % (0.0-6.0); HEMATOCRIT 35 % (39-51); HEMOGLOBIN 10.9 g/dL (13.5-17.5); LYMPHOCYTES # (AUTO) 1.7 K/uL (0.8-4.8); LYMPHOCYTES % (AUTO) 28.4 % (20.0-44.0); MEAN CORPUSCULAR HEMOGLOBIN 22 PG (26.0-33.0); MEAN CORPUSCULAR HGB CONC 31 g/dl (31.0-36.0); MEAN CORPUSCULAR VOLUME 72 fL (80-96); MONOCYTES # (AUTO) 0.5 K/uL (0.1-1.30); MONOCYTES % (AUTO) 8.1 % (2.0-12.0); NEUTROPHILS # (AUTO) 3.7 K/uL (1.8-8.9); NEUTROPHILS % (AUTO) 60.8 % (43.0-81.0); PLATELET COUNT (AUTO) 549 K/uL (150-450); RED BLOOD CELL COUNT(AUTO) 4.92 MIL/uL (4.5-6.0); RED CELL DISTRIBUTION WIDTH 21.1 % (11.5-15.0)
[2023-01-29 09:50] LABS: CALCIUM, SERUM 9.2 mg/dL (8.5-10.1); CARBON DIOXIDE 26 mmol/L (21-32); CHLORIDE 98 mmol/L (98-107); CREATININE 1.1 mg/dL (0.6-1.3); GLUCOSE 79 mg/dL (74-106); POTASSIUM 3.3 mmol/L (3.5-5.1); SODIUM SERUM 133 mmol/L (136-145); UREA NITROGEN, BLOOD 34 mg/dL (7-18)
[2023-01-29 09:57] LABS: ALANINE AMINOTRANSFERASE 38 U/L (12-78); ALBUMIN 3.9 g/dL (3.4-5.0); ALCOHOL, BLOOD < 3 mg/dL (0-10); ALKALINE PHOSPHATASE 84 U/L (46-116); ASPARTATE AMINOTRANSFERASE 39 U/L (15-37); BILIRUBIN,DIRECT 0.2 mg/dL (0.0-0.2); BILIRUBIN,TOTAL 0.5 mg/dL (0.2-1.0); TOTAL PROTEIN, SERUM 7.7 g/dL (6.4-8.2)
[2023-01-29 10:01] LABS: ACETAMINOPHEN 0 ug/ml (10-30); SALICYLATE < 2.3 mg/dL (2.8-20.0)
[2023-01-29 10:16] LABS: APPEARANCE,URINE CLEAR (CLEAR); BILIRUBIN,URINE 1+ (NEGATIVE); BLOOD, URINE TRACE-INTA Ery/uL (NEGATIVE); COLOR,URINE YELLOW (YELLOW); KETONES,URINE NEGATIVE (NEGATIVE); LEUKOCYTE ESTERASE ,URINE NEGATIVE (NEGATIVE); NITRITE, URINE NEGATIVE (NEGATIVE); PROTEIN,URINE TRACE mg/dl (NEGATIVE); UGLUCOSE NEGATIVE (NEGATIVE)
[2023-01-29 10:17] LABS: ADD URINE CULTURE NO; BACTERIA,URINE Rare /HPF (None Seen); RBC,URINE 0-2 /HPF (0-2); SQUAMOUS EPITHELIAL CELL,UR Few /HPF (None Seen); WBC,URINE 0-2 /HPF (0-3)
[2023-01-29 11:11] LABS: BARBITURATE, URINE NEGATIVE (NEGATIVE); BENZODIAZEPINE, URINE NEGATIVE (NEGATIVE); COCCAINE, URINE NEGATIVE (NEGATIVE); OPIATE, URINE NEGATIVE (NEGATIVE); PHENCYCLIDINE SCREEN,URINE NEGATIVE (NEGATIVE)
[2023-01-29 11:15] LABS: AMPHETAMINE, URINE POSITIVE (NEGATIVE); CANNABINOID, URINE POSITIVE (NEGATIVE)
== END 2023-01-29 12:58 ==
LOC: ER 09:24
DX: F23 Brief psychotic disorder (principal); F19.10 Other psychoactive substance abuse, uncomplicated; F31.9 Bipolar disorder, unspecified; F17.200 Nicotine dependence, unspecified, uncomplicated; Z88.8 Allergy status to other drugs, medicaments and biological substances; Z60.2 Problems related to living alone
CPT/HCPCS: 36415; 80048-TC; 80076-TC; 81001; 85025-TC; G0480

== ENCOUNTER 2023-04-08 06:50 | Emergency (ER) | payer OTHER ==
[~2023-04-08] VITALS: Ht 175.3 cm; Wt 59.0 kg
[2023-04-08] MEDS ORDERED: ACETAMINOPHEN ES 500 MG TABLET PO ONE (07:30)
[2023-04-08] MEDS ORDERED: CLINDAMYCIN 600 MG in IV D5W 100 ML IV ONE (07:30)
[2023-04-08 08:09] LABS: BASOPHILS # (AUTO) 0.2 K/uL (0.0-0.2); BASOPHILS % (AUTO) 3.2 % (0.0-2.0); EOSINOPHILS # (AUTO) 0.2 K/uL (0.0-0.7); EOSINOPHILS % (AUTO) 3.3 % (0.0-6.0); HEMATOCRIT 41 % (39-51); HEMOGLOBIN 12.6 g/dL (13.5-17.5); LYMPHOCYTES # (AUTO) 1.4 K/uL (0.8-4.8); LYMPHOCYTES % (AUTO) 28.5 % (20.0-44.0); MEAN CORPUSCULAR HEMOGLOBIN 25 PG (26.0-33.0); MEAN CORPUSCULAR HGB CONC 31 g/dl (31.0-36.0); MEAN CORPUSCULAR VOLUME 81 fL (80-96); MONOCYTES # (AUTO) 0.3 K/uL (0.1-1.30); MONOCYTES % (AUTO) 7.3 % (2.0-12.0); NEUTROPHILS # (AUTO) 2.8 K/uL (1.8-8.9); NEUTROPHILS % (AUTO) 57.7 % (43.0-81.0); PLATELET COUNT (AUTO) 228 K/uL (150-450); RED CELL DISTRIBUTION WIDTH 24.7 % (11.5-15.0); WHITE BLOOD COUNT (AUTO) 4.8 K/uL (4.3-11.0)
[2023-04-08 08:13] LABS: APPEARANCE,URINE CLEAR (CLEAR); BILIRUBIN,URINE NEGATIVE (NEGATIVE); BLOOD, URINE 2+ Ery/uL (NEGATIVE); COLOR,URINE YELLOW (YELLOW); KETONES,URINE NEGATIVE (NEGATIVE); LEUKOCYTE ESTERASE ,URINE NEGATIVE (NEGATIVE); NITRITE, URINE NEGATIVE (NEGATIVE); PROTEIN,URINE NEGATIVE (NEGATIVE); UGLUCOSE NEGATIVE (NEGATIVE)
[2023-04-08 08:21] LABS: ALANINE AMINOTRANSFERASE 76 U/L (12-78); ALBUMIN 3.8 g/dL (3.4-5.0); ALCOHOL, BLOOD < 3 mg/dL (0-10); ALKALINE PHOSPHATASE 115 U/L (46-116); ASPARTATE AMINOTRANSFERASE 77 U/L (15-37); BILIRUBIN,DIRECT 0.1 mg/dL (0.0-0.2); BILIRUBIN,TOTAL 0.3 mg/dL (0.2-1.0); CALCIUM, SERUM 9.4 mg/dL (8.5-10.1); CARBON DIOXIDE 24 mmol/L (21-32); CHLORIDE 101 mmol/L (98-107); CREATININE 0.7 mg/dL (0.6-1.3); GLUCOSE 87 mg/dL (74-106); SODIUM SERUM 135 mmol/L (136-145); TOTAL PROTEIN, SERUM 8.6 g/dL (6.4-8.2); UREA NITROGEN, BLOOD 18 mg/dL (7-18)
[2023-04-08 08:23] LABS: ACETAMINOPHEN <10 ug/ml (10-30); SALICYLATE 0.6 mg/dL (2.8-20.0)
[2023-04-08 08:24] LABS: LACTIC ACID 1.2 mmol/L (0.4-2.0)
[2023-04-08 08:26] LABS: ADD URINE CULTURE NO; RBC,URINE 21-50 /HPF (0-2); SQUAMOUS EPITHELIAL CELL,UR Rare /HPF (None Seen); WBC,URINE 0-2 /HPF (0-3)
[2023-04-08 08:27] LABS: BACTERIA,URINE Few /HPF (None Seen); CALCIUM OXALATE CRYSTALS,UR Moderate /HPF (None Seen)
[2023-04-08 08:32] LABS: BARBITURATE, URINE NEGATIVE (NEGATIVE); BENZODIAZEPINE, URINE NEGATIVE (NEGATIVE); COCCAINE, URINE NEGATIVE (NEGATIVE); OPIATE, URINE NEGATIVE (NEGATIVE); PHENCYCLIDINE SCREEN,URINE NEGATIVE (NEGATIVE)
[2023-04-08 08:39] LABS: AMPHETAMINE, URINE POSITIVE (NEGATIVE); CANNABINOID, URINE POSITIVE (NEGATIVE)
[2023-04-08] MEDS ORDERED: ACETAMINOPHEN ES 500 MG TABLET ONE (09:05)
[2023-04-08] MEDS ORDERED: SULF1TAB48 PO (10:25)
[2023-04-08] MEDS ORDERED: SULFAMETH/TRIMETH 800/160 MG 1 UDTAB TABLET PO ONE (11:30)
[2023-04-08] MEDS ORDERED: SULFAMETH/TRIMETH 800/160 MG 1 UDTAB TABLET ONE (11:30)
[2023-04-08 12:40] VITALS: BP 111/80; TEMP 98.1; O2SAT 96
== END 2023-04-08 12:41 | disposition home or self-care (01) ==
LOC: ER 06:54
DX: R45.851 Suicidal ideations (principal); L03.113 Cellulitis of right upper limb; F20.9 Schizophrenia, unspecified; F31.9 Bipolar disorder, unspecified; F17.200 Nicotine dependence, unspecified, uncomplicated; Z88.8 Allergy status to other drugs, medicaments and biological substances; Z20.822 Contact with and (suspected) exposure to COVID-19
CPT/HCPCS: 99285; 73130; 85025; 80048; 87040 ×2; 83605; 80076; 81001; 36415; 87426; 80143; 80320; 80307; J3490; J7060; C9803; G0480

== ENCOUNTER 2023-08-10 05:33 | Emergency (ER) | payer OTHER ==
[~2023-08-10] VITALS: Ht 175.3 cm; Wt 54.4 kg
[~2023-08-10 05:33] MED LIST changes: +SULF1TAB48 PO
[2023-08-10 06:10] VITALS: BP 124/90; TEMP 98; O2SAT 98
[2023-08-10 07:53] LABS: BASOPHILS % (AUTO) 0.5 % (0.0-2.0); EOSINOPHILS # (AUTO) 0.1 K/uL (0.0-0.7); EOSINOPHILS % (AUTO) 1.4 % (0.0-6.0); HEMATOCRIT 30 % (39-51); HEMOGLOBIN 9.2 g/dL (13.5-17.5); LYMPHOCYTES # (AUTO) 1.5 K/uL (0.8-4.8); LYMPHOCYTES % (AUTO) 16.4 % (20.0-44.0); MEAN CORPUSCULAR HEMOGLOBIN 22 PG (26.0-33.0); MEAN CORPUSCULAR HGB CONC 31 g/dl (31.0-36.0); MEAN CORPUSCULAR VOLUME 70 fL (80-96); MONOCYTES # (AUTO) 0.6 K/uL (0.1-1.30); MONOCYTES % (AUTO) 7.1 % (2.0-12.0); NEUTROPHILS # (AUTO) 6.7 K/uL (1.8-8.9); NEUTROPHILS % (AUTO) 74.6 % (43.0-81.0); PLATELET COUNT (AUTO) 501 K/uL (150-450); RED BLOOD CELL COUNT(AUTO) 4.22 MIL/uL (4.5-6.0); RED CELL DISTRIBUTION WIDTH 18.8 % (11.5-15.0); WHITE BLOOD COUNT (AUTO) 8.9 K/uL (4.3-11.0)
[2023-08-10 07:59] LABS: APPEARANCE,URINE CLEAR (CLEAR); BILIRUBIN,URINE NEGATIVE (NEGATIVE); BLOOD, URINE NEGATIVE Ery/uL (NEGATIVE); COLOR,URINE YELLOW (YELLOW); KETONES,URINE NEGATIVE (NEGATIVE); LEUKOCYTE ESTERASE ,URINE NEGATIVE (NEGATIVE); NITRITE, URINE NEGATIVE (NEGATIVE); PROTEIN,URINE NEGATIVE (NEGATIVE); UGLUCOSE NEGATIVE (NEGATIVE); UROBILINOGEN,URINE 0.2 EU/dL (0.2)
[2023-08-10 08:04] LABS: CALCIUM, SERUM 8.5 mg/dL (8.5-10.1); CARBON DIOXIDE 28 mmol/L (21-32); CHLORIDE 101 mmol/L (98-107); CREATININE 0.5 mg/dL (0.6-1.3); GLUCOSE 73 mg/dL (74-106); POTASSIUM 4.2 mmol/L (3.5-5.1); SODIUM SERUM 136 mmol/L (136-145); UREA NITROGEN, BLOOD 21 mg/dL (7-18)
[2023-08-10 08:13] LABS: ACETAMINOPHEN 0 ug/ml (10-30); ALANINE AMINOTRANSFERASE 23 U/L (12-78); ALBUMIN 2.8 g/dL (3.4-5.0); ALCOHOL, BLOOD < 3 mg/dL (0-10); ALKALINE PHOSPHATASE 99 U/L (46-116); ASPARTATE AMINOTRANSFERASE 17 U/L (15-37); BILIRUBIN,DIRECT 0.1 mg/dL (0.0-0.2); BILIRUBIN,TOTAL 0.2 mg/dL (0.2-1.0); SALICYLATE 0.9 mg/dL (2.8-20.0); TOTAL PROTEIN, SERUM 7.1 g/dL (6.4-8.2)
[2023-08-10 08:13] LABS: AMPHETAMINE, URINE POSITIVE (NEGATIVE); BARBITURATE, URINE NEGATIVE (NEGATIVE); BENZODIAZEPINE, URINE NEGATIVE (NEGATIVE); CANNABINOID, URINE POSITIVE (NEGATIVE); COCCAINE, URINE NEGATIVE (NEGATIVE); OPIATE, URINE NEGATIVE (NEGATIVE); PHENCYCLIDINE SCREEN,URINE NEGATIVE (NEGATIVE)
== END 2023-08-10 11:31 ==
LOC: ER 05:38
DX: Z04.6 Encounter for general psychiatric examination, requested by authority (principal); F20.9 Schizophrenia, unspecified; F31.9 Bipolar disorder, unspecified; F17.200 Nicotine dependence, unspecified, uncomplicated; Z88.8 Allergy status to other drugs, medicaments and biological substances; Z59.00 Homelessness unspecified; Z20.822 Contact with and (suspected) exposure to COVID-19
CPT/HCPCS: 36415; 80048-TC; 80076-TC; 85025-TC; G0480

== ENCOUNTER 2023-09-24 01:48 | Emergency (ER) | payer OTHER | END 2023-09-24 04:16 | disposition left against medical advice (07) | LOC: ER 01:49 | DX: Z00.00 Encounter for general adult medical examination without abnormal findings (principal); Z53.21 Procedure and treatment not carried out due to patient leaving prior to being seen by health care provider ==

== ENCOUNTER 2023-09-24 04:38 | Emergency (ER) | payer OTHER ==
[~2023-09-24] VITALS: Ht 175.3 cm; Wt 54.4 kg
[2023-09-24] MEDS ORDERED: ONDANSETRON 4 MG TAB.RAPDIS ONE (05:13)
[2023-09-24] MEDS: ONDANSETRON 4 MG TAB.RAPDIS SL ONE (05:15)
[2023-09-24 05:22] LABS: BASOPHILS # (AUTO) 0.2 K/uL (0.0-0.2); BASOPHILS % (AUTO) 1.4 % (0.0-2.0); EOSINOPHILS # (AUTO) 0.2 K/uL (0.0-0.7); EOSINOPHILS % (AUTO) 2.1 % (0.0-6.0); HEMATOCRIT 31 % (39-51); HEMOGLOBIN 9.4 g/dL (13.5-17.5); LYMPHOCYTES # (AUTO) 2.1 K/uL (0.8-4.8); LYMPHOCYTES % (AUTO) 18.8 % (20.0-44.0); MEAN CORPUSCULAR HEMOGLOBIN 21 PG (26.0-33.0); MEAN CORPUSCULAR HGB CONC 30 g/dl (31.0-36.0); MEAN CORPUSCULAR VOLUME 69 fL (80-96); MONOCYTES # (AUTO) 0.8 K/uL (0.1-1.30); MONOCYTES % (AUTO) 6.7 % (2.0-12.0); NEUTROPHILS # (AUTO) 8.1 K/uL (1.8-8.9); PLATELET COUNT (AUTO) 705 K/uL (150-450); RED BLOOD CELL COUNT(AUTO) 4.52 MIL/uL (4.5-6.0); RED CELL DISTRIBUTION WIDTH 20.8 % (11.5-15.0); WHITE BLOOD COUNT (AUTO) 11.4 K/uL (4.3-11.0)
[2023-09-24] MEDS: IBUPROFEN 400 MG TABLET PO ONE (05:33)
[2023-09-24] MEDS ORDERED: IBUPROFEN 400 MG TABLET ONE (05:33)
[2023-09-24 05:35] LABS: APPEARANCE,URINE CLEAR (CLEAR); BILIRUBIN,URINE NEGATIVE (NEGATIVE); BLOOD, URINE 1+ Ery/uL (NEGATIVE); COLOR,URINE YELLOW (YELLOW); KETONES,URINE TRACE mg/dL (NEGATIVE); LEUKOCYTE ESTERASE ,URINE NEGATIVE (NEGATIVE); NITRITE, URINE NEGATIVE (NEGATIVE); PROTEIN,URINE NEGATIVE (NEGATIVE); UGLUCOSE NEGATIVE (NEGATIVE)
[2023-09-24 05:38] LABS: CALCIUM, SERUM 8.6 mg/dL (8.5-10.1); CARBON DIOXIDE 32 mmol/L (21-32); CHLORIDE 100 mmol/L (98-107); CREATININE 0.6 mg/dL (0.6-1.3); GLUCOSE 89 mg/dL (74-106); POTASSIUM 3.2 mmol/L (3.5-5.1); SODIUM SERUM 136 mmol/L (136-145); UREA NITROGEN, BLOOD 25 mg/dL (7-18)
[2023-09-24 05:42] LABS: ADD URINE CULTURE NO; BACTERIA,URINE None seen /HPF (None Seen); SQUAMOUS EPITHELIAL CELL,UR Rare /HPF (None Seen); WBC,URINE 0-2 /HPF (0-3)
[2023-09-24 05:44] LABS: ALANINE AMINOTRANSFERASE 69 U/L (12-78); ALBUMIN 3.5 g/dL (3.4-5.0); ALCOHOL, BLOOD < 3 mg/dL (0-10); ALKALINE PHOSPHATASE 131 U/L (46-116); ASPARTATE AMINOTRANSFERASE 41 U/L (15-37); BILIRUBIN,DIRECT 0.1 mg/dL (0.0-0.2); BILIRUBIN,TOTAL 0.3 mg/dL (0.2-1.0); TOTAL PROTEIN, SERUM 7.9 g/dL (6.4-8.2)
[2023-09-24 05:46] LABS: ACETAMINOPHEN <10 ug/ml (10-30); SALICYLATE 0.4 mg/dL (2.8-20.0)
[2023-09-24] MEDS ORDERED: POTASSIUM CHLORIDE 20 MEQ TAB.PRT.SR PO ONE (06:01)
[2023-09-24] MEDS: POTASSIUM CHLORIDE 20 MEQ TAB.PRT.SR PO ONE (06:03)
[2023-09-24 06:53] LABS: BARBITURATE, URINE NEGATIVE (NEGATIVE); COCCAINE, URINE NEGATIVE (NEGATIVE); OPIATE, URINE NEGATIVE (NEGATIVE); PHENCYCLIDINE SCREEN,URINE NEGATIVE (NEGATIVE)
[2023-09-24 06:56] LABS: AMPHETAMINE, URINE POSITIVE (NEGATIVE); BENZODIAZEPINE, URINE POSITIVE (NEGATIVE); CANNABINOID, URINE POSITIVE (NEGATIVE)
[2023-09-24 09:00] VITALS: BP 128/77; TEMP 98.6; O2SAT 98
== END 2023-09-24 09:23 ==
LOC: ER 04:41
DX: S83.92XA Sprain of unspecified site of left knee, initial encounter (principal); R45.851 Suicidal ideations; E87.6 Hypokalemia; F20.9 Schizophrenia, unspecified; F31.9 Bipolar disorder, unspecified; F17.200 Nicotine dependence, unspecified, uncomplicated; Z88.8 Allergy status to other drugs, medicaments and biological substances; Z59.00 Homelessness unspecified; Z79.899 Other long term (current) drug therapy; Z20.822 Contact with and (suspected) exposure to COVID-19; W18.30XA Fall on same level, unspecified, initial encounter; Y93.89 Activity, other specified; Y92.89 Other specified places as the place of occurrence of the external cause; Y99.8 Other external cause status
CPT/HCPCS: 99285; 73564; 85025; 80048; 80076; 81001; 36415; 87426; 80143; 80320; 80307; Q0162; G0480

== ENCOUNTER 2023-10-23 03:30 | Emergency (ER) | payer OTHER | END 2023-10-23 05:10 | disposition left against medical advice (07) | LOC: ER 03:43 | DX: R22.9 Localized swelling, mass and lump, unspecified (principal); Z53.21 Procedure and treatment not carried out due to patient leaving prior to being seen by health care provider ==

== ENCOUNTER 2023-11-24 00:17 | Emergency (ER) | payer MEDICAID, OTHER ==
[~2023-11-24] VITALS: Ht 175.3 cm; Wt 59.0 kg
[2023-11-24 03:37] LABS: BASOPHILS # (AUTO) 0.1 K/uL (0.0-0.2); EOSINOPHILS # (AUTO) 0.1 K/uL (0.0-0.7); EOSINOPHILS % (AUTO) 2.3 % (0.0-6.0); HEMATOCRIT 33 % (39-51); HEMOGLOBIN 10.4 g/dL (13.5-17.5); LYMPHOCYTES # (AUTO) 1.9 K/uL (0.8-4.8); LYMPHOCYTES % (AUTO) 37.6 % (20.0-44.0); MEAN CORPUSCULAR HEMOGLOBIN 23 PG (26.0-33.0); MEAN CORPUSCULAR HGB CONC 32 g/dl (31.0-36.0); MEAN CORPUSCULAR VOLUME 72 fL (80-96); MONOCYTES # (AUTO) 0.6 K/uL (0.1-1.30); MONOCYTES % (AUTO) 11.7 % (2.0-12.0); NEUTROPHILS # (AUTO) 2.3 K/uL (1.8-8.9); PLATELET COUNT (AUTO) 559 K/uL (150-450); RED BLOOD CELL COUNT(AUTO) 4.56 MIL/uL (4.5-6.0); RED CELL DISTRIBUTION WIDTH 23.3 % (11.5-15.0); WHITE BLOOD COUNT (AUTO) 4.9 K/uL (4.3-11.0)
[2023-11-24 03:47] LABS: APPEARANCE,URINE CLEAR (CLEAR); BILIRUBIN,URINE NEGATIVE (NEGATIVE); BLOOD, URINE NEGATIVE Ery/uL (NEGATIVE); COLOR,URINE YELLOW (YELLOW); KETONES,URINE TRACE mg/dL (NEGATIVE); LEUKOCYTE ESTERASE ,URINE NEGATIVE (NEGATIVE); NITRITE, URINE NEGATIVE (NEGATIVE); PROTEIN,URINE NEGATIVE (NEGATIVE); UGLUCOSE NEGATIVE (NEGATIVE); UROBILINOGEN,URINE 0.2 EU/dL (0.2)
[2023-11-24 03:49] LABS: BASOPHILS % (AUTO) 0.5 % (0.0-2.0); NEUTROPHILS % (AUTO) 47.9 % (43.0-81.0)
[2023-11-24 03:53] LABS: CARBON DIOXIDE 28 mmol/L (21-32); CHLORIDE 100 mmol/L (98-107); CREATININE 0.7 mg/dL (0.6-1.3); GLUCOSE 83 mg/dL (74-106); SODIUM SERUM 136 mmol/L (136-145); UREA NITROGEN, BLOOD 31 mg/dL (7-18)
[2023-11-24 03:57] LABS: BARBITURATE, URINE NEGATIVE (NEGATIVE); BENZODIAZEPINE, URINE NEGATIVE (NEGATIVE); COCCAINE, URINE NEGATIVE (NEGATIVE); OPIATE, URINE NEGATIVE (NEGATIVE); PHENCYCLIDINE SCREEN,URINE NEGATIVE (NEGATIVE)
[2023-11-24 03:59] LABS: ALANINE AMINOTRANSFERASE 29 U/L (12-78); ALBUMIN 3.1 g/dL (3.4-5.0); ALCOHOL, BLOOD < 3 mg/dL (0-10); ALKALINE PHOSPHATASE 117 U/L (46-116); ASPARTATE AMINOTRANSFERASE 20 U/L (15-37); BILIRUBIN,DIRECT 0.1 mg/dL (0.0-0.2); BILIRUBIN,TOTAL 0.4 mg/dL (0.2-1.0); TOTAL PROTEIN, SERUM 7.7 g/dL (6.4-8.2)
[2023-11-24 04:00] LABS: AMPHETAMINE, URINE POSITIVE (NEGATIVE); CANNABINOID, URINE POSITIVE (NEGATIVE)
[2023-11-24 04:02] LABS: ACETAMINOPHEN < 2 ug/ml (10-30); SALICYLATE 0.9 mg/dL (2.8-20.0)
[2023-11-24 07:30] VITALS: BP 124/79; TEMP 98.1; O2SAT 99
== END 2023-11-24 10:16 ==
LOC: ER 00:25
DX: R45.851 Suicidal ideations (principal); F32.A Depression, unspecified; F19.10 Other psychoactive substance abuse, uncomplicated; F25.9 Schizoaffective disorder, unspecified; F17.200 Nicotine dependence, unspecified, uncomplicated; Z88.8 Allergy status to other drugs, medicaments and biological substances; Z59.00 Homelessness unspecified; Z20.822 Contact with and (suspected) exposure to COVID-19
CPT/HCPCS: 36415; 80048-TC; 80076-TC; 85025-TC; G0480

== ENCOUNTER 2023-12-13 15:23 | Emergency (ER) | payer MEDICAID ==
[~2023-12-13] VITALS: Ht 175.3 cm; Wt 49.9 kg
[2023-12-13 15:34] VITALS: BP 105/60; TEMP 98.6; O2SAT 99
[2023-12-13 16:00] LABS: BASOPHILS # (AUTO) 0.1 K/uL (0.0-0.2); BASOPHILS % (AUTO) 0.7 % (0.0-2.0); EOSINOPHILS # (AUTO) 0.1 K/uL (0.0-0.7); EOSINOPHILS % (AUTO) 1.3 % (0.0-6.0); HEMATOCRIT 31 % (39-51); HEMOGLOBIN 9.6 g/dL (13.5-17.5); LYMPHOCYTES # (AUTO) 1.3 K/uL (0.8-4.8); LYMPHOCYTES % (AUTO) 17.5 % (20.0-44.0); MEAN CORPUSCULAR HEMOGLOBIN 23 PG (26.0-33.0); MEAN CORPUSCULAR HGB CONC 31 g/dl (31.0-36.0); MEAN CORPUSCULAR VOLUME 73 fL (80-96); MONOCYTES # (AUTO) 0.5 K/uL (0.1-1.30); MONOCYTES % (AUTO) 7.1 % (2.0-12.0); NEUTROPHILS # (AUTO) 5.4 K/uL (1.8-8.9); NEUTROPHILS % (AUTO) 73.4 % (43.0-81.0); PLATELET COUNT (AUTO) 395 K/uL (150-450); RED BLOOD CELL COUNT(AUTO) 4.21 MIL/uL (4.5-6.0); RED CELL DISTRIBUTION WIDTH 22.6 % (11.5-15.0); WHITE BLOOD COUNT (AUTO) 7.4 K/uL (4.3-11.0)
[2023-12-13 16:13] LABS: ALANINE AMINOTRANSFERASE 46 U/L (12-78); ALCOHOL, BLOOD < 3 mg/dL (0-10); ALKALINE PHOSPHATASE 87 U/L (46-116); ASPARTATE AMINOTRANSFERASE 26 U/L (15-37); BILIRUBIN,DIRECT 0.1 mg/dL (0.0-0.2); BILIRUBIN,TOTAL 0.4 mg/dL (0.2-1.0); CALCIUM, SERUM 8.7 mg/dL (8.5-10.1); CARBON DIOXIDE 32 mmol/L (21-32); CHLORIDE 104 mmol/L (98-107); CREATININE 0.8 mg/dL (0.6-1.3); GLUCOSE 114 mg/dL (74-106); POTASSIUM 4.1 mmol/L (3.5-5.1); SODIUM SERUM 139 mmol/L (136-145); UREA NITROGEN, BLOOD 16 mg/dL (7-18)
[2023-12-13 16:16] LABS: ACETAMINOPHEN 0 ug/ml (10-30); SALICYLATE 0.3 mg/dL (2.8-20.0)
[2023-12-13 17:39] LABS: APPEARANCE,URINE Clear (CLEAR); BILIRUBIN,URINE SMALL (NEGATIVE); BLOOD, URINE Trace-intact Ery/uL (NEGATIVE); COLOR,URINE YELLOW (YELLOW); KETONES,URINE Trace mg/dL (NEGATIVE); LEUKOCYTE ESTERASE ,URINE Negative (NEGATIVE); NITRITE, URINE Negative (NEGATIVE); PH,URINE 6.5 (5.0-8.0); PROTEIN,URINE Trace mg/dl (NEGATIVE); UGLUCOSE Negative (NEGATIVE)
[2023-12-13 17:57] LABS: AMPHETAMINE, URINE POSITIVE (NEGATIVE); BARBITURATE, URINE NEGATIVE (NEGATIVE); BENZODIAZEPINE, URINE NEGATIVE (NEGATIVE); COCCAINE, URINE NEGATIVE (NEGATIVE); OPIATE, URINE NEGATIVE (NEGATIVE); PHENCYCLIDINE SCREEN,URINE NEGATIVE (NEGATIVE)
[2023-12-13 18:00] LABS: CANNABINOID, URINE POSITIVE (NEGATIVE)
[2023-12-13 18:22] LABS: ADD URINE CULTURE NO; BACTERIA,URINE Rare /HPF (None Seen); MUCUS,URINE Many /LPF (None Seen); SQUAMOUS EPITHELIAL CELL,UR Rare /HPF (None Seen); WBC,URINE 0-2 /HPF (0-3)
== END 2023-12-13 23:00 ==
LOC: ER 15:26
DX: R45.851 Suicidal ideations (principal); F25.9 Schizoaffective disorder, unspecified; F31.9 Bipolar disorder, unspecified; F15.10 Other stimulant abuse, uncomplicated; F17.200 Nicotine dependence, unspecified, uncomplicated; Z88.8 Allergy status to other drugs, medicaments and biological substances; Z59.00 Homelessness unspecified; Z20.822 Contact with and (suspected) exposure to COVID-19
CPT/HCPCS: 36415; 80048-TC; 80076-TC; 81001; 85025-TC; G0480

== ENCOUNTER 2024-01-13 03:41 | Emergency (ER) | payer MEDICAID ==
[~2024-01-13] VITALS: Ht 175.3 cm; Wt 54.4 kg
[2024-01-13 05:58] LABS: BASOPHILS # (AUTO) 0.1 K/uL (0.0-0.2); BASOPHILS % (AUTO) 1.3 % (0.0-2.0); EOSINOPHILS # (AUTO) 0.3 K/uL (0.0-0.7); EOSINOPHILS % (AUTO) 5.1 % (0.0-6.0); HEMATOCRIT 31 % (39-51); HEMOGLOBIN 9.8 g/dL (13.5-17.5); LYMPHOCYTES # (AUTO) 1.6 K/uL (0.8-4.8); LYMPHOCYTES % (AUTO) 24.7 % (20.0-44.0); MEAN CORPUSCULAR HEMOGLOBIN 23 PG (26.0-33.0); MEAN CORPUSCULAR HGB CONC 32 g/dl (31.0-36.0); MEAN CORPUSCULAR VOLUME 74 fL (80-96); MONOCYTES # (AUTO) 0.7 K/uL (0.1-1.30); MONOCYTES % (AUTO) 11.2 % (2.0-12.0); NEUTROPHILS # (AUTO) 3.7 K/uL (1.8-8.9); NEUTROPHILS % (AUTO) 57.7 % (43.0-81.0); PLATELET COUNT (AUTO) 493 K/uL (150-450); RED BLOOD CELL COUNT(AUTO) 4.19 MIL/uL (4.5-6.0); RED CELL DISTRIBUTION WIDTH 21.1 % (11.5-15.0); WHITE BLOOD COUNT (AUTO) 6.3 K/uL (4.3-11.0)
[2024-01-13 06:04] LABS: CALCIUM, SERUM 8.4 mg/dL (8.5-10.1); CARBON DIOXIDE 30 mmol/L (21-32); CHLORIDE 103 mmol/L (98-107); CREATININE 0.7 mg/dL (0.6-1.3); GLUCOSE 71 mg/dL (74-106); POTASSIUM 3.4 mmol/L (3.5-5.1); SODIUM SERUM 140 mmol/L (136-145); UREA NITROGEN, BLOOD 25 mg/dL (7-18)
[2024-01-13 06:06] LABS: APPEARANCE,URINE CLEAR (CLEAR); BILIRUBIN,URINE NEGATIVE (NEGATIVE); BLOOD, URINE NEGATIVE Ery/uL (NEGATIVE); COLOR,URINE YELLOW (YELLOW); KETONES,URINE NEGATIVE (NEGATIVE); LEUKOCYTE ESTERASE ,URINE NEGATIVE (NEGATIVE); NITRITE, URINE NEGATIVE (NEGATIVE); PH,URINE 5.5 (5.0-8.0); PROTEIN,URINE TRACE mg/dl (NEGATIVE); UGLUCOSE NEGATIVE (NEGATIVE)
[2024-01-13 06:09] LABS: ALANINE AMINOTRANSFERASE 30 U/L (12-78); ALBUMIN 2.9 g/dL (3.4-5.0); ALCOHOL, BLOOD < 3 mg/dL (0-10); ALKALINE PHOSPHATASE 92 U/L (46-116); ASPARTATE AMINOTRANSFERASE 22 U/L (15-37); BILIRUBIN,DIRECT 0.1 mg/dL (0.0-0.2); BILIRUBIN,TOTAL 0.4 mg/dL (0.2-1.0)
[2024-01-13 06:12] LABS: ACETAMINOPHEN <10 ug/ml (10-30); SALICYLATE 0.9 mg/dL (2.8-20.0)
[2024-01-13 06:12] LABS: ADD URINE CULTURE NO; BACTERIA,URINE Rare /HPF (None Seen); RBC,URINE 0-2 /HPF (0-2); SQUAMOUS EPITHELIAL CELL,UR Few /HPF (None Seen); WBC,URINE 0-2 /HPF (0-3)
[2024-01-13 06:16] LABS: AMPHETAMINE, URINE POSITIVE (NEGATIVE); BARBITURATE, URINE NEGATIVE (NEGATIVE); BENZODIAZEPINE, URINE NEGATIVE (NEGATIVE); COCCAINE, URINE NEGATIVE (NEGATIVE); OPIATE, URINE NEGATIVE (NEGATIVE); PHENCYCLIDINE SCREEN,URINE NEGATIVE (NEGATIVE)
[2024-01-13 06:25] LABS: CANNABINOID, URINE POSITIVE (NEGATIVE)
[2024-01-13] MEDS ORDERED: POTASSIUM CHLORIDE 20 MEQ TAB.PRT.SR PO ONE (07:49)
[2024-01-13] MEDS: POTASSIUM CHLORIDE 20 MEQ TAB.PRT.SR PO ONE (07:50)
[2024-01-13] MEDS ORDERED: POTASSIUM CHLORIDE 20 MEQ POWDER PACKET ONE (07:58)
[2024-01-13] MEDS: POTASSIUM CHLORIDE 20 MEQ POWDER PACKET PO ONE (08:07)
[2024-01-13 15:52] VITALS: BP 105/64; TEMP 97.8; O2SAT 99
== END 2024-01-13 13:50 ==
LOC: ER 03:58
DX: R44.0 Auditory hallucinations (principal); E87.6 Hypokalemia; D64.9 Anemia, unspecified; F31.9 Bipolar disorder, unspecified; F19.10 Other psychoactive substance abuse, uncomplicated; Z88.8 Allergy status to other drugs, medicaments and biological substances; F17.200 Nicotine dependence, unspecified, uncomplicated; Z20.822 Contact with and (suspected) exposure to COVID-19; Z59.00 Homelessness unspecified
CPT/HCPCS: 36415; 80048-TC; 80076-TC; 81001; 85025-TC; G0480

== ENCOUNTER 2024-04-05 15:59 | Emergency (ER) | payer MEDICAID, OTHER ==
[~2024-04-05] VITALS: Ht 175.3 cm; Wt 55.8 kg
[2024-04-05 16:30] VITALS: BP 115/76; TEMP 98.2; O2SAT 99
[2024-04-05 16:51] LABS: BASOPHILS % (AUTO) 0.4 % (0.0-2.0); EOSINOPHILS # (AUTO) 0.1 K/uL (0.0-0.7); EOSINOPHILS % (AUTO) 2.1 % (0.0-6.0); HEMATOCRIT 29 % (39-51); HEMOGLOBIN 9.5 g/dL (13.5-17.5); LYMPHOCYTES % (AUTO) 36.2 % (20.0-44.0); MEAN CORPUSCULAR HEMOGLOBIN 26 PG (26.0-33.0); MEAN CORPUSCULAR HGB CONC 33 g/dl (31.0-36.0); MEAN CORPUSCULAR VOLUME 79 fL (80-96); MONOCYTES # (AUTO) 0.6 K/uL (0.1-1.30); MONOCYTES % (AUTO) 11.3 % (2.0-12.0); NEUTROPHILS # (AUTO) 2.7 K/uL (1.8-8.9); PLATELET COUNT (AUTO) 504 K/uL (150-450); RED BLOOD CELL COUNT(AUTO) 3.68 MIL/uL (4.5-6.0); WHITE BLOOD COUNT (AUTO) 5.5 K/uL (4.3-11.0)
[2024-04-05 16:53] LABS: APPEARANCE,URINE Clear (CLEAR); BILIRUBIN,URINE Negative (NEGATIVE); BLOOD, URINE Large Ery/uL (NEGATIVE); COLOR,URINE YELLOW (YELLOW); KETONES,URINE Negative (NEGATIVE); LEUKOCYTE ESTERASE ,URINE Negative (NEGATIVE); NITRITE, URINE Negative (NEGATIVE); PROTEIN,URINE Negative (NEGATIVE); UGLUCOSE Negative (NEGATIVE); UROBILINOGEN,URINE 0.2 EU/dL (0.2)
[2024-04-05 17:03] LABS: RBC,URINE 81-100 /HPF (0-2)
[2024-04-05 17:03] LABS: CARBON DIOXIDE 28 mmol/L (21-32); CHLORIDE 105 mmol/L (98-107); CREATININE 0.5 mg/dL (0.6-1.3); GLUCOSE 87 mg/dL (74-106); POTASSIUM 4.5 mmol/L (3.5-5.1); SODIUM SERUM 141 mmol/L (136-145); UREA NITROGEN, BLOOD 31 mg/dL (7-18)
[2024-04-05 17:06] LABS: ADD URINE CULTURE NO; BACTERIA,URINE Few /HPF (None Seen); MUCUS,URINE Few /LPF (None Seen); SQUAMOUS EPITHELIAL CELL,UR 0-2 /HPF (None Seen)
[2024-04-05 17:09] LABS: ALANINE AMINOTRANSFERASE 43 U/L (12-78); ALBUMIN 3.2 g/dL (3.4-5.0); ALCOHOL, BLOOD < 3 mg/dL (0-10); ALKALINE PHOSPHATASE 81 U/L (46-116); ASPARTATE AMINOTRANSFERASE 31 U/L (15-37); BILIRUBIN,DIRECT 0.1 mg/dL (0.0-0.2); BILIRUBIN,TOTAL 0.3 mg/dL (0.2-1.0); TOTAL PROTEIN, SERUM 7.1 g/dL (6.4-8.2)
[2024-04-05 17:10] LABS: ACETAMINOPHEN < 2 ug/ml (10-30); SALICYLATE 0.7 mg/dL (2.8-20.0)
[2024-04-05 17:20] LABS: AMPHETAMINE, URINE POSITIVE (NEGATIVE); BARBITURATE, URINE NEGATIVE (NEGATIVE); BENZODIAZEPINE, URINE NEGATIVE (NEGATIVE); CANNABINOID, URINE POSITIVE (NEGATIVE); COCCAINE, URINE NEGATIVE (NEGATIVE); OPIATE, URINE NEGATIVE (NEGATIVE); PHENCYCLIDINE SCREEN,URINE NEGATIVE (NEGATIVE)
== END 2024-04-05 22:39 ==
LOC: ER 16:05
DX: R45.851 Suicidal ideations (principal); F32.A Depression, unspecified; F25.9 Schizoaffective disorder, unspecified; F17.200 Nicotine dependence, unspecified, uncomplicated; Z79.899 Other long term (current) drug therapy; Z86.19 Personal history of other infectious and parasitic diseases; Z88.8 Allergy status to other drugs, medicaments and biological substances; Z60.2 Problems related to living alone; Z20.822 Contact with and (suspected) exposure to COVID-19; Z59.00 Homelessness unspecified
CPT/HCPCS: 36415; 80048-TC; 80076-TC; 81001; 85025-TC; G0480

== ENCOUNTER 2024-08-12 06:22 | Emergency (ER) | payer MEDICAID ==
[~2024-08-12] VITALS: Ht 180.3 cm; Wt 52.2 kg
[2024-08-12 07:49] LABS: BASOPHILS # (AUTO) 0.1 K/uL (0.0-0.2); BASOPHILS % (AUTO) 1.4 % (0.0-2.0); EOSINOPHILS # (AUTO) 0.2 K/uL (0.0-0.7); EOSINOPHILS % (AUTO) 3.9 % (0.0-6.0); HEMATOCRIT 31 % (39-51); HEMOGLOBIN 9.4 g/dL (13.5-17.5); LYMPHOCYTES # (AUTO) 1.2 K/uL (0.8-4.8); LYMPHOCYTES % (AUTO) 24.9 % (20.0-44.0); MEAN CORPUSCULAR HEMOGLOBIN 20 PG (26.0-33.0); MEAN CORPUSCULAR HGB CONC 31 g/dl (31.0-36.0); MEAN CORPUSCULAR VOLUME 64 fL (80-96); MONOCYTES # (AUTO) 0.4 K/uL (0.1-1.30); MONOCYTES % (AUTO) 8.8 % (2.0-12.0); PLATELET COUNT (AUTO) 556 K/uL (150-450); RED BLOOD CELL COUNT(AUTO) 4.82 MIL/uL (4.5-6.0); RED CELL DISTRIBUTION WIDTH 21.9 % (11.5-15.0)
[2024-08-12 08:03] LABS: ALANINE AMINOTRANSFERASE 68 U/L (12-78); ALBUMIN 3.9 g/dL (3.4-5.0); ALCOHOL, BLOOD < 3 mg/dL (0-10); ALKALINE PHOSPHATASE 118 U/L (46-116); ASPARTATE AMINOTRANSFERASE 44 U/L (15-37); BILIRUBIN,DIRECT 0.2 mg/dL (0.0-0.2); BILIRUBIN,TOTAL 0.6 mg/dL (0.2-1.0); CALCIUM, SERUM 9.5 mg/dL (8.5-10.1); CARBON DIOXIDE 26 mmol/L (21-32); CHLORIDE 101 mmol/L (98-107); CREATININE 0.7 mg/dL (0.6-1.3); GLUCOSE 68 mg/dL (74-106); POTASSIUM 4.9 mmol/L (3.5-5.1); SODIUM SERUM 137 mmol/L (136-145); TOTAL PROTEIN, SERUM 8.2 g/dL (6.4-8.2); UREA NITROGEN, BLOOD 32 mg/dL (7-18)
[2024-08-12 08:05] LABS: ACETAMINOPHEN <10 ug/ml (10-30); SALICYLATE 0.9 mg/dL (2.8-20.0)
[2024-08-12 08:30] LABS: ANISOCYTOSIS 1+; PLATELET ESTIMATE INCREASED
[2024-08-12 09:00] LABS: APPEARANCE,URINE CLEAR (CLEAR); BILIRUBIN,URINE NEGATIVE (NEGATIVE); BLOOD, URINE NEGATIVE Ery/uL (NEGATIVE); COLOR,URINE YELLOW (YELLOW); KETONES,URINE 2+ mg/dL (NEGATIVE); LEUKOCYTE ESTERASE ,URINE NEGATIVE (NEGATIVE); NITRITE, URINE NEGATIVE (NEGATIVE); PH,URINE 5.5 (5.0-8.0); PROTEIN,URINE NEGATIVE (NEGATIVE); UGLUCOSE NEGATIVE (NEGATIVE); UROBILINOGEN,URINE 0.2 EU/dL (0.2)
[2024-08-12 09:05] LABS: BARBITURATE, URINE NEGATIVE (NEGATIVE); BENZODIAZEPINE, URINE NEGATIVE (NEGATIVE); COCCAINE, URINE NEGATIVE (NEGATIVE); OPIATE, URINE NEGATIVE (NEGATIVE); PHENCYCLIDINE SCREEN,URINE NEGATIVE (NEGATIVE)
[2024-08-12 09:07] LABS: AMPHETAMINE, URINE POSITIVE (NEGATIVE); CANNABINOID, URINE POSITIVE (NEGATIVE)
[2024-08-12 09:09] LABS: ADD URINE CULTURE NO; BACTERIA,URINE Few /HPF (None Seen); MUCUS,URINE Few /LPF (None Seen); RBC,URINE 0-2 /HPF (0-2); SQUAMOUS EPITHELIAL CELL,UR 0-2 /HPF (None Seen)
[2024-08-12 13:24] VITALS: BP 128/69; TEMP 98; O2SAT 98
== END 2024-08-12 13:24 ==
LOC: ER 06:24
DX: R45.851 Suicidal ideations (principal); F32.A Depression, unspecified; F25.9 Schizoaffective disorder, unspecified; D64.9 Anemia, unspecified; E86.0 Dehydration; F19.10 Other psychoactive substance abuse, uncomplicated; F17.200 Nicotine dependence, unspecified, uncomplicated; Z59.00 Homelessness unspecified; Z79.899 Other long term (current) drug therapy; Z86.19 Personal history of other infectious and parasitic diseases; Z88.8 Allergy status to other drugs, medicaments and biological substances; Z20.822 Contact with and (suspected) exposure to COVID-19
CPT/HCPCS: 36415; 80048-TC; 80076-TC; 81001; 85025-TC; G0480

== ENCOUNTER 2024-09-07 02:11 | Emergency (ER) | payer MEDICAID ==
[~2024-09-07] VITALS: Ht 180.3 cm; Wt 68.0 kg
[2024-09-07 03:33] LABS: BASOPHILS % (AUTO) 0.4 % (0.0-2.0); EOSINOPHILS # (AUTO) 0.1 K/uL (0.0-0.7); EOSINOPHILS % (AUTO) 0.8 % (0.0-6.0); HEMATOCRIT 31 % (39-51); HEMOGLOBIN 9.5 g/dL (13.5-17.5); LYMPHOCYTES # (AUTO) 1.2 K/uL (0.8-4.8); LYMPHOCYTES % (AUTO) 13.3 % (20.0-44.0); MEAN CORPUSCULAR HEMOGLOBIN 19 PG (26.0-33.0); MEAN CORPUSCULAR HGB CONC 30 g/dl (31.0-36.0); MEAN CORPUSCULAR VOLUME 64 fL (80-96); MONOCYTES # (AUTO) 0.9 K/uL (0.1-1.30); NEUTROPHILS # (AUTO) 6.6 K/uL (1.8-8.9); NEUTROPHILS % (AUTO) 75.5 % (43.0-81.0); PLATELET COUNT (AUTO) 318 K/uL (150-450); RED BLOOD CELL COUNT(AUTO) 4.88 MIL/uL (4.5-6.0); RED CELL DISTRIBUTION WIDTH 24.3 % (11.5-15.0); WHITE BLOOD COUNT (AUTO) 8.7 K/uL (4.3-11.0)
[2024-09-07 03:41] LABS: CALCIUM, SERUM 8.9 mg/dL (8.5-10.1); CARBON DIOXIDE 29 mmol/L (21-32); CHLORIDE 99 mmol/L (98-107); CREATININE 0.8 mg/dL (0.6-1.3); GLUCOSE 71 mg/dL (74-106); POTASSIUM 3.3 mmol/L (3.5-5.1); SODIUM SERUM 136 mmol/L (136-145); UREA NITROGEN, BLOOD 30 mg/dL (7-18)
[2024-09-07 04:13] LABS: ACETAMINOPHEN <10 ug/ml (10-30); ALANINE AMINOTRANSFERASE 48 U/L (12-78); ALBUMIN 3.6 g/dL (3.4-5.0); ALCOHOL, BLOOD < 3 mg/dL (0-10); ALKALINE PHOSPHATASE 104 U/L (46-116); ASPARTATE AMINOTRANSFERASE 33 U/L (15-37); BILIRUBIN,DIRECT 0.1 mg/dL (0.0-0.2); BILIRUBIN,TOTAL 0.4 mg/dL (0.2-1.0); SALICYLATE 1.1 mg/dL (2.8-20.0)
[2024-09-07 04:22] LABS: APPEARANCE,URINE CLEAR (CLEAR); BILIRUBIN,URINE 1+ (NEGATIVE); BLOOD, URINE TRACE-INTA Ery/uL (NEGATIVE); COLOR,URINE YELLOW (YELLOW); KETONES,URINE 2+ mg/dL (NEGATIVE); LEUKOCYTE ESTERASE ,URINE NEGATIVE (NEGATIVE); NITRITE, URINE NEGATIVE (NEGATIVE); PROTEIN,URINE NEGATIVE (NEGATIVE); UGLUCOSE NEGATIVE (NEGATIVE); UROBILINOGEN,URINE 0.2 EU/dL (0.2)
[2024-09-07 04:34] LABS: BARBITURATE, URINE NEGATIVE (NEGATIVE); BENZODIAZEPINE, URINE NEGATIVE (NEGATIVE); COCCAINE, URINE NEGATIVE (NEGATIVE); OPIATE, URINE NEGATIVE (NEGATIVE); PHENCYCLIDINE SCREEN,URINE NEGATIVE (NEGATIVE)
[2024-09-07 04:40] LABS: ADD URINE CULTURE NO; BACTERIA,URINE None seen /HPF (None Seen); RBC,URINE 0-2 /HPF (0-2); WBC,URINE NONE SEEN /HPF (0-3)
[2024-09-07 04:41] LABS: SQUAMOUS EPITHELIAL CELL,UR None Seen /HPF (None Seen)
[2024-09-07 04:58] LABS: AMPHETAMINE, URINE POSITIVE (NEGATIVE); CANNABINOID, URINE POSITIVE (NEGATIVE)
[2024-09-07 10:02] VITALS: BP 128/77; TEMP 97.9; O2SAT 99
== END 2024-09-07 11:31 ==
LOC: ER 02:17
DX: R44.0 Auditory hallucinations (principal); R45.851 Suicidal ideations; F17.200 Nicotine dependence, unspecified, uncomplicated; F19.10 Other psychoactive substance abuse, uncomplicated; F32.A Depression, unspecified; Z79.899 Other long term (current) drug therapy; Z86.19 Personal history of other infectious and parasitic diseases; Z88.8 Allergy status to other drugs, medicaments and biological substances; Z20.822 Contact with and (suspected) exposure to COVID-19
CPT/HCPCS: 36415; 80048-TC; 80076-TC; 81001; 85025-TC; G0480